=== PATIENT | female | born 2000 | race Caucasian/White ===

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

== ENCOUNTER 2022-05-03 12:46 | Emergency (ER) | payer BC, OTHER ==
--- OUTSIDE RECORDS SUMMARY | 2022-05-03 12:53 | XMS REPORT | Continuity of Care Document ---
:2002 Author Organization [facility] t Address [address] [place] [address] Care Team Providers Name Role Phone PCP, PATIENT DOES NOT HAVE A Primary Care Physician Unavaila patrick Silva, Na L Attending Clinician Unavailable Isamar Jameson Attending Clinician Unavailable EMELIA NORTON Attending Clinician Unavailable EMELIA NORTON Attending Clinician Unavailable OLMAN VIZCAINO Attending Clinician Unavailable Olman Vizcaino MD Attending Clinician Yunior Bailey CRNA Attending Clinician Priscilla Alvarado MD Attending Clinician Only, Adc Test Attending Clinician Unavailable Michi Valdovinos MD Attending Clinician MICHI VALDOVINOS Attending Clinician Unavailable Lab, Ang - Db Attending Clinician Unavailable Doctor Unassigned, Triplett Attending Clinician Unavailable Pob, Adc Lab Main Attending Clinician Unavailable Ultrasound, Adc Mfm Attending Clinician Unavailable Iona Courtney MD Attending Clinician [phone] IONA COURTNEY Attending Clinician Unavailable Alvarez Lugo Attending Clinician Ronnie OGDEN, Aamir Wells Attending Clinician Unavailable HARLEEN ERVIN Attending Clinician Unavailable David Lubin Attending Clinician Harleen Senior Attending Clinician Only, Ang Db Test Attending Clinician Unavailable DAVID PINON Attending Clinician Unavailable SARAH LANGE Attending Clinician Unavailable Lab, Adc Fam Pob I Attending Clinician Unavailable Faith Sanz Attending Clinician FAITH WAGNER Attending Clinician Unavailable WADE JACKSON Attending Clinician Unavailable OLMAN VIZCAINO Admitting Clinician Unavailable Olman Vizcaino MD Admitting Clinician Payers Payer Name Policy Type Policy Number Effective Date Expiration Date S ource [place] [id number] 2021 OUT OF STATE 00:00:00 [place] [facility] [id number] 2021 STAR 00:00:00 AETNA C1 [id number] 2020 [facility] 00:00:00 [facility] CIGNA C1 [id number] 2018 [facility] 00:00:00 [facility] Problems Condition Condition Condition Status Onset Resolution Last Treating Co mments Source Name Details Category Date Date Treatment Clinician Date Negative Negative Disease Active 2021-06 Unive rs depression depression 0-30 [place] [facility] Liveborn Liveborn Disease Active 2021-06 Unive rs , of infant, of 0-06 [place] , , 00 [place] born in born in [facility] by vaginal by vaginal delivery delivery General General Disease Active 2021-06 Univers counseling counseling 0-05 [place] female 00 Medi peggy contracept contracept Br anch ion ion Asthma Asthma Disease Active Univers without without 8-17 ity of status status 00:00: [place] asthmaticu asthmaticu 00 Me dical s s [place] Chlamydia Chlamydia Disease Active Uni vers trachomati trachomati 2-21 it y of s s 00:00: [place] infection infection 00 Medi peggy of lower of lower Branch genitourin genitourin iraida sites iraida sites Nausea/vom Nausea/vom Disease Active 2021-0 U nivers iting [place] - [place] Supervisio Supervisio Disease Active 2021- U nivers n of other n of other 08-12 it y of normal normal 00:00: [place] 00 [facility] Branch [id number] Vitamin D Problem Active Comm on deficiency [facility] Asthma Asthma, Problem Active Common unspecifie [facility] d asthma - [facility] severity, [facility] unspecif[facility] d whether Medical complicate Center d, unspecifie d whether persistent Sinus Sinus Problem Active Common problem problem [facility] Seasonal Seasonal Problem Active Commo n allergy allergies [facility] [id number] Hyperglyce Problem Active Com mon tristian [facility] Allergies, Adverse Reactions, Alerts Allergy Allergy Status Severity Reaction(s) Onset Inactive Treating Comm ents Source Name Type Date Date Clinician NO KNOWN Drug Active Univers ALLERGIE Class ity of S [facility] Social History Social Habit Start Date Stop Date Quantity Comments Source ASSERTION 2021-07-10 University 00:00:00 [facility] of [facility] - Tobacco Use [facility] Alcohol intake 2022-04-20 2022-04-20 Ex-drinker [facility] 00:00:00 00:00:00 (finding) [facility] Exposure to 2022-04-06 2022-04-16 Not sure [facility] SARS-CoV-2 00:00:00 13:28:00 [facility] [place] [facility] (event) Branch Tobacco use and 2022-01-06 2022-01-06 Smokeless tobacco Un iversity of exposure 00:00:00 00:00:[address] [facility] Smoking Status Start Date Stop Date Source Unknown if ever smoked Universit y [facility] Never smoked tobacco [facility] Medications Ordered Filled Start Stop Current Ordering Indication Dosage Frequency Signature Comments Components Source Medication Medication Date Date Medication? Clinician (SIG) Name Name 2021-06- No 1{tbl} Take 1 Univ ers VITAMIN 0-08 10-26 tablet by ity of 00:00: 00:00 mouth [place] 00 :00 daily. Medical Branch mery Tito 2021-06 Yes Topical, Un betsy (TUCKS) 50 0-07 PRN, ity of % topical 00:05[place] pad 26 on [facility] Medical 03/27/22 at Branch 1905, Until Discontinu ed, Routine, Pain (scale 1-3) ascorbic 2021-06 Yes [id number] 500mg Take 1 U nivers acid, 0-07 tablet by ity of vitamin C, 00:00: mouth in [place] 500 mg 00 the Medical tablet morning. Branch Take with iron. ferrous 2021-06 Yes [id number] 325mg Take 1 Un betsy sulfate 0-07 tablet by ity of (IRON, 00:00: mouth in [place] FERROUS 00 the Medical SULFATE,) morning. Branch 325 mg (65 mg iron) tablet 2021-06 Yes [id number] 1{tbl} Take 1 U nivers 25-iron-fol 0-07 tablet by ity of ate 6-dha 00:00: mouth [place] 30 mg 00 daily. Medical iron-1mg Branch -200 mg Cap docusate 2021-06 Yes [id number] 200mg Take 2 Univers 100 mg 0-07 102 capsules ity of capsule 00:00: by mouth [place] 00 once daily Medical as needed Branch for Constipati on. ibuprofen 2021-06 Yes [id number] 600mg Take 1 Univers 600 mg 0-07 102 tablet by ity of tablet 00:00: mouth [place] 00 every 6 Medical (six) Branch hours as needed (Pain). Take with food or milk. ascorbic 2021-06 Yes [id number] 500mg Take 1 U nivers acid, 0-07 tablet by ity of vitamin C, 00:00: mouth in [place] 500 mg 00 the Medical tablet morning. Branch Take with iron. ferrous 2021-06 Yes [id number] 325mg Take 1 Un betsy sulfate 0-07 tablet by ity of (IRON, 00:00: mouth in [place] FERROUS 00 the Medical SULFATE,) morning. Branch 325 mg (65 mg iron) tablet 2021-06 Yes [id number] 1{tbl} Take 1 U nivers 25-iron-fol 0-07 tablet by ity of ate 6-dha 00:00: mouth [place] 30 mg 00 daily. Medical iron-1mg Branch -200 mg Cap docusate 2021-06 Yes [id number] 200mg Take 2 Univers 100 mg 0-07 102 capsules ity of capsule 00:00: by mouth [place] 00 once daily Medical as needed Branch for Constipati on. ibuprofen 2021-06 Yes [id number] 600mg Take 1 Univers 600 mg 0-07 102 tablet by ity of tablet 00:00: mouth [place] 00 every 6 Medical (six) Branch hours as needed (Pain). Take with food or milk. ascorbic 2021-06 Yes [id number] 500mg Take 1 U nivers acid, 0-07 tablet by ity of vitamin C, 00:00: mouth in [place] 500 mg 00 the Medical tablet morning. Branch Take with iron. ferrous 2021-06 Yes [id number] 325mg Take 1 Un betsy sulfate 0-07 tablet by ity of (IRON, 00:00: mouth in [place] FERROUS 00 the Medical SULFATE,) morning. Branch 325 mg (65 mg iron) tablet 2021-06 Yes [id number] 1{tbl} Take 1 U nivers 25-iron-fol 0-07 tablet by ity of ate 6-dha 00:00: mouth [place] 30 mg 00 daily. Medical iron-1mg Branch -200 mg Cap docusate 2021-06 Yes [id number] 200mg Take 2 Univers 100 mg 0-07 102 capsules ity of capsule 00:00: by mouth [place] 00 once daily Medical as needed Branch for Constipati on. ibuprofen 2021-06 Yes [id number] 600mg Take 1 Univers 600 mg 0-07 102 tablet by ity of tablet 00:00: mouth [place] 00 every 6 Medical (six) Branch hours as needed (Pain). Take with food or milk. rho(D) 2021-06 Yes 300ug 300 mcg, Univer s immune 0-06 Intramuscu ity of globulin 21:22: lar, ONCE, [place] (RHOGAM) 46 For 1 Medical syringe 300 dose, Branch mcg Conditiona l, Routine HYDROcodone 2021-06 Yes 1{tbl} 1 tablet, Univers -acetaminop 0-06 Oral, ity of hen (NORCO 21:22: Q6HPRN, [place] 5) 5-325 mg 01 Starting Medi peggy tablet 1 on [place] Branch tablet 03/27/22 at 1622, Until Discontinu ed, Routine, Pain (scale 7-10) ibuprofen 2021-06 Yes 600mg 600 mg, Univ ers (IBU) 0-06 Oral, ity of tablet 600 21:: Q6HPRN, [place] mg 01 Starting Medical on [facility] 03/27/22 at 1622, Until Discontinu ed, Routine, Pain (scale 4-6) acetaminoph 2021-06 Yes 650mg 650 mg, Un betsy en 0-06 Oral, ity of (TYLENOL) 21:22: Q6HPRN, [place] tablet 650 01 Starting Medic al mg on [facility] Branch 03/27/22 at 1622, Until Discontinu ed, Routine, Pain (scale 1-3) diphenhydrA 2021-06 Yes 25mg 25 mg, Univ ers MINE 0-06 Oral, ity of (BENADRYL) 21:22: Q6HPRN, [place] tablet 25 01 Starting Medica l mg on [facility] 03/27/22 at 1622, Until Discontinu ed, Routine, Sleep, Itching ondansetron 2021-06 Yes 4mg 4 mg, Slow Univers (ZOFRAN 0-06 IV Push, ity of (PF)) 21:: Q8HPRN, [place] injection 4 01 Starting Medi peggy mg on [facility] 03/27/22 at 1622, Until Discontinu ed, Routine, Nausea and Vomiting (N/V) simethicone 2021-06 Yes 160mg 160 mg, Un betsy (GAS RELIEF 0-06 Oral, ity of (SIMETHICON 21:22: PC+HSPRN, [place] E)) 01 Starting Medical chewable on [facility] tablet 160 03/27/22 at mg 1622, Until Discontinu ed, Routine, Gas docusate 2021-06 Yes 200mg 200 mg, Unive rs (COLACE) 0-06 Oral, ity of capsule 200 21:22: QDAILYPRN, [place] mg 01 Starting Medical on [facility] 03/27/22 at 1622, Until Discontinu ed, Routine, Constipati on magnesium 2021-06 Yes 30mL 30 mL, Univer s hydroxide 0-06 Oral, ity of (MILK OF 21:22: QDAILYPRN, [place] MAGNESIA) 01 Starting Medica l 400 mg/5 mL on [place] Branch suspension 03/27/22 at 30 mL 1622, Until Discontinu ed, Routine, Constipati on benzocaine- 2021-06 Yes Topical, Un betsy menthol 0-06 PRN, ity of (DERMOPLAST 21:22: [place] 20-0.5 % 00 on [place] Medical topical 03/27/22 at Branch spray 1622, Until Discontinu ed, Routine, Perineum discomfort fentaNYL-ro 2021-06- No Epidural, Univers pivacaine 2 0-06 10-06 ONCE INTRA i ty of mcg/mL-0.1 14:06: 22:39 PROCEDURE, [place] % (PF) in 00 :29 Starting Medica l NS 200 mL on [place] Branch epidural 03/27/22 at infusion 0906, RTU Until [place] 03/27/22 at 1739, Routine, Intra-op lidocaine-e 2021-06- No Intraderma Univers pinephrine 0-06 10-06 l, ONCE ity o f (XYLOCAINE 14:00: 22:39 INTRA [place] W/EPINEPHRI 00 :29 PROCEDURE, Me dical NE) 1.5 Starting Branch %-1:200,000 on [place] injection 03/27/22 at 0900, Until [place] 03/27/22 at 1739, Routine, Intra-op oxytocin 2021-06- No 2mU/min at 2-40 Un betsy (PITOCIN) 0-06 10-06 mL/hr, IV ity of 30 units in 07:00: 21:22 Infusion, [place] NS 500 mL 00 :44 TITRATE, Medica l IV infusion Starting Bran ch on [place] 03/27/22 at 0200, Until [place] 03/27/22 at 1622, BRODERICK dinoproston 2021-06- No 10mg 10 mg, Uni vers e 0-05 10-05 Vaginal, ity of (CERVIDIL) 17:00: 17:45 ONCE, 1 [place] vaginal 00 :00 dose, On Medical insert Thu Branch mg 03/26/22 at 1200, Routine
Restricte d use approved by: ADC Provider FENTanyl PF 2021-06- No 50ug 50 mcg, Un betsy (SUBLIMAZE 0-05 10-06 Slow IV ity o f (PF)) 16:50: 21:22 Push, [place] injection 16 :44 Q1HPRN, 4 Medic al 50 mcg doses, Branch Starting on Thu03/26/22 at 1150, Until [place] 03/27/22 at 1622, Routine, Pain (scale 7-10) D5W-LR IV 2021-06- No 1000mL at 1-125 U nivers infusion 0-05 10-06 mL/hr, IV ity o f 1,000 mL 16:50: 21:22 Infusion, [place] 16 :44 TITRATE, Medical Starting Branch on Thu03/26/22 at 1150, Until [place] 03/27/22 at 1622, Routine ferrous Yes [id number] 325mg Take 1 Un betsy sulfate 7-31 tablet by ity of (IRON, 00:00: mouth in [place] FERROUS 00 the Medical SULFATE,) morning. Branch 325 mg (65 mg iron) tablet ascorbic Yes [id number] 500mg Take 1 U nivers acid, 7-31 tablet by ity of vitamin C, 00:00: mouth in [place] 500 mg 00 the Medical tablet morning. Branch Take with iron. ferrous Yes [id number] 325mg Take 1 Un betsy sulfate 7-31 tablet by ity of (IRON, 00:00: mouth in [place] FERROUS 00 the Medical SULFATE,) morning. Branch 325 mg (65 mg iron) tablet ascorbic 2021-0 Yes [id number] 500mg Take 1 U nivers acid, 7-31 tablet by ity of vitamin C, 00:00: mouth in [place] 500 mg 00 the Medical tablet morning. Branch Take with iron. ferrous Yes [id number] 325mg Take 1 Un betsy sulfate 7-31 tablet by ity of (IRON, 00:00: mouth in [place] FERROUS 00 the Medical SULFATE,) morning. Branch 325 mg (65 mg iron) tablet ascorbic 0 Yes [id number] 500mg Take 1 U nivers acid, 7-31 tablet by ity of vitamin C, 00:00: mouth in [place] 500 mg 00 the Medical tablet morning. Branch Take with iron. ferrous 0 Yes [id number] 325mg Take 1 Un betsy sulfate 7-31 tablet by ity of (IRON, 00:00: mouth in [place] FERROUS 00 the Medical SULFATE,) morning. Branch 325 mg (65 mg iron) tablet ascorbic 2021-0 Yes [id number] 500mg Take 1 U nivers acid, 7-31 tablet by ity of vitamin C, 00:00: mouth in [place] 500 mg 00 the Medical tablet morning. Branch Take with iron. ferrous 2021-0 Yes [id number] 325mg Take 1 Un betsy sulfate 7-31 tablet by ity of (IRON, 00:00: mouth in [place] FERROUS 00 the Medical SULFATE,) morning. Branch 325 mg (65 mg iron) tablet ascorbic 2021-0 Yes [id number] 500mg Take 1 U nivers acid, 7-31 tablet by ity of vitamin C, 00:00: mouth in [place] 500 mg 00 the Medical tablet morning. Branch Take with iron. ferrous 0 Yes [id number] 325mg Take 1 Un betsy sulfate 7-31 tablet by ity of (IRON, 00:00: mouth in [place] FERROUS 00 the Medical SULFATE,) morning. Branch 325 mg (65 mg iron) tablet ascorbic 0 Yes [id number] 500mg Take 1 U nivers acid, 7-31 tablet by ity of vitamin C, 00:00: mouth in [place] 500 mg 00 the Medical tablet morning. Branch Take with iron. ferrous 0 Yes [id number] 325mg Take 1 Un betsy sulfate 7-31 tablet by ity of (IRON, 00:00: mouth in [place] FERROUS 00 the Medical SULFATE,) morning. Branch 325 mg (65 mg iron) tablet ascorbic 2021-0 Yes [id number] 500mg Take 1 U nivers acid, 7-31 tablet by ity of vitamin C, 00:00: mouth in [place] 500 mg 00 the Medical tablet morning. Branch Take with iron. ferrous 2021-0 Yes [id number] 325mg Take 1 Un betsy sulfate 7-31 tablet by ity of (IRON, 00:00: mouth in [place] FERROUS 00 the Medical SULFATE,) morning. Branch 325 mg (65 mg iron) tablet ascorbic 0 Yes [id number] 500mg Take 1 U nivers acid, 7-31 tablet by ity of vitamin C, 00:00: mouth in [place] 500 mg 00 the Medical tablet morning. Branch Take with iron. ferrous 2021-0 Yes [id number] 325mg Take 1 Un betsy sulfate 7-31 tablet by ity of (IRON, 00:00: mouth in [place] FERROUS 00 the Medical SULFATE,) morning. Branch 325 mg (65 mg iron) tablet ascorbic 0 Yes [id number] 500mg Take 1 U nivers acid, 7-31 tablet by ity of vitamin C, 00:00: mouth in [place] 500 mg 00 the Medical tablet morning. Branch Take with iron. ferrous 0 Yes [id number] 325mg Take 1 Un betsy sulfate 7-31 tablet by ity of (IRON, 00:00: mouth in [place] FERROUS 00 the Medical SULFATE,) morning. Branch 325 mg (65 mg iron) tablet ascorbic 0 Yes [id number] 500mg Take 1 U nivers acid, 7-31 tablet by ity of vitamin C, 00:00: mouth in [place] 500 mg 00 the Medical tablet morning. Branch Take with iron. ferrous Yes [id number] 325mg Take 1 Un betsy sulfate 7-31 tablet by ity of (IRON, 00:00: mouth in [place] FERROUS 00 the Medical SULFATE,) morning. Branch 325 mg (65 mg iron) tablet ascorbic 0 Yes [id number] 500mg Take 1 U nivers acid, 7-31 tablet by ity of vitamin C, 00:00: mouth in [place] 500 mg 00 the Medical tablet morning. Branch Take with iron. ferrous 0 Yes [id number] 325mg Take 1 Un betsy sulfate 7-31 tablet by ity of (IRON, 00:00: mouth in [place] FERROUS 00 the Medical SULFATE,) morning. Branch 325 mg (65 mg iron) tablet ascorbic 0 Yes [id number] 500mg Take 1 U nivers acid, 7-31 tablet by ity of vitamin C, 00:00: mouth in [place] 500 mg 00 the Medical tablet morning. Branch Take with iron. ferrous 0 Yes [id number] 325mg Take 1 Un betsy sulfate 7-31 tablet by ity of (IRON, 00:00: mouth in [place] FERROUS 00 the Medical SULFATE,) morning. Branch 325 mg (65 mg iron) tablet ascorbic 0 Yes [id number] 500mg Take 1 U nivers acid, 7-31 tablet by ity of vitamin C, 00:00: mouth in [place] 500 mg 00 the Medical tablet morning. Branch Take with iron. ferrous Yes [id number] 325mg Take 1 Un betsy sulfate 7-31 tablet by ity of (IRON, 00:00: mouth in [place] FERROUS 00 the Medical SULFATE,) morning. Branch 325 mg (65 mg iron) tablet ascorbic Yes [id number] 500mg Take 1 U nivers acid, 7-31 tablet by ity of vitamin C, 00:00: mouth in [place] 500 mg 00 the Medical tablet morning. Branch Take with iron. ferrous 0 Yes [id number] 325mg Take 1 Un betsy sulfate 7-31 tablet by ity of (IRON, 00:00: mouth in [place] FERROUS 00 the Medical SULFATE,) morning. Branch 325 mg (65 mg iron) tablet ascorbic Yes [id number] 500mg Take 1 U nivers acid, 7-31 tablet by ity of vitamin C, 00:00: mouth in [place] 500 mg 00 the Medical tablet morning. Branch Take with iron. ferrous 2021- No [id number] 325mg Take 1 U nivers sulfate 01-19 10- tablet by ity of (IRON, 00:00: 00:00 mouth in [place] FERROUS 00 :00 the Medical SULFATE,) morning. Branch 325 mg (65 mg iron) tablet ascorbic 2021- No [id number] 500mg Take 1 Univers acid, 01-19 10- tablet by ity of vitamin C, 00:00: 00:00 mouth in [place] 500 mg 00 :00 the Medical tablet morning. Branch Take with iron. ferrous 2021- No [id number] 325mg Take 1 U nivers sulfate 01-19 10- tablet by ity of (IRON, 00:00: 00:00 mouth in [place] FERROUS 00 :00 the Medical SULFATE,) morning. Branch 325 mg (65 mg iron) tablet ascorbic 2021- No [id number] 500mg Take 1 Univers acid, 7 10- tablet by ity of vitamin C, 00:00: 00:00 mouth in [place] 500 mg 00 :00 the Medical tablet morning. Branch Take with iron. Nitrofurant 2021- No [id number] 100mg Take 1 Univers oin&Nit. 01-03 capsule by ity of Macrocryst 00:00: 04:59 mouth in [place] 100 mg 00 :00 the Medical capsule morning Branch and 1 capsule in the evening. Do all this for 7 days. Nitrofurant 2021- No [id number] 100mg Take 1 Univers oin&Nit. 715 01-11 capsule by ity of Macrocryst 00:00: 04:59 mouth in [place] 100 mg 00 :00 the Medical capsule morning Branch and 1 capsule in the evening. Do all this for 7 days. terconazole 2021- No [id number] 1{appli Insert 1 Univers 0.8 % 11-19 cator} Applicator ity o f vaginal 00:00: 04:59 into [place] cream 00 :00 vagina at Medical bedtime Branch for 3 days. famotidine 0 Yes [id number] 40mg Take 1 Univers 40 mg 4-07 tablet by ity of tablet 00:00: mouth 00 daily. Medical Take about Branch 30 minutes prior to eating in the AM with water. Omeprazole 2021-0 Yes [id number] 20mg Take 1 Univers 20 mg 4-07 tablet by ity of tablet 00:00: mouth with 00 evening Medical meal. Take Branch in evening with water about 30 minutes prior to dinner. famotidine 2021-0 Yes [id number] 40mg Take 1 Univers 40 mg 4-07 tablet by ity of tablet 00:00: mouth 00 daily. Medical Take about Branch 30 minutes prior to eating in the AM with water. Omeprazole 2021-0 Yes [id number] 20mg Take 1 Univers 20 mg 4-07 tablet by ity of tablet 00:00: mouth with 00 evening Medical meal. Take Branch in evening with water about 30 minutes prior to dinner. famotidine 2021-0 Yes [id number] 40mg Take 1 Univers 40 mg 4-07 tablet by ity of tablet 00:00: mouth 00 daily. Medical Take about Branch 30 minutes prior to eating in the AM with water. Omeprazole 2021-0 Yes [id number] 20mg Take 1 Univers 20 mg 4-07 tablet by ity of tablet 00:00: mouth with 00 evening Medical meal. Take Branch in evening with water about 30 minutes prior to dinner. famotidine 2021-0 Yes [id number] 40mg Take 1 Univers 40 mg 4-07 tablet by ity of tablet 00:00: mouth [place] 00 daily. Medical Take about Branch 30 minutes prior to eating in the AM with water. Omeprazole 2022-0 Yes [id number] 20mg Take 1 Univers 20 mg 4-07 tablet by ity of tablet 00:00: mouth with [place] 00 evening Medical meal. Take Branch in evening with water about 30 minutes prior to dinner. famotidine 2022-0 Yes [id number] 40mg Take 1 Univers 40 mg 4-07 tablet by ity of tablet 00:00: mouth [place] 00 daily. Medical Take about Branch 30 minutes prior to eating in the AM with water. Omeprazole 2022-0 Yes [id number] 20mg Take 1 Univers 20 mg 4-07 tablet by ity of tablet 00:00: mouth with [place] 00 evening Medical meal. Take Branch in evening with water about 30 minutes prior to dinner. famotidine 2022-0 Yes [id number] 40mg Take 1 Univers 40 mg 4-07 tablet by ity of tablet 00:00: mouth [place] 00 daily. Medical Take about Branch 30 minutes prior to eating in the AM with water. Omeprazole 2022-0 Yes [id number] 20mg Take 1 Univers 20 mg 4-07 tablet by ity of tablet 00:00: mouth with [place] 00 evening Medical meal. Take Branch in evening with water about 30 minutes prior to dinner. famotidine 2022-0 Yes [id number] 40mg Take 1 Univers 40 mg 4-07 tablet by ity of tablet 00:00: mouth [place] 00 daily. Medical Take about Branch 30 minutes prior to eating in the AM with water. Omeprazole 2022-0 Yes [id number] 20mg Take 1 Univers 20 mg 4-07 tablet by ity of tablet 00:00: mouth with [place] 00 evening Medical meal. Take Branch in evening with water about 30 minutes prior to dinner. famotidine 2022-0 Yes [id number] 40mg Take 1 Univers 40 mg 4-07 tablet by ity of tablet 00:00: mouth [place] 00 daily. Medical Take about Branch 30 minutes prior to eating in the AM with water. Omeprazole 2022-0 Yes [id number] 20mg Take 1 Univers 20 mg 4-07 tablet by ity of tablet 00:00: mouth with [place] 00 evening Medical meal. Take Branch in evening with water about 30 minutes prior to dinner. famotidine 2-0 Yes [id number] 40mg Take 1 Univers 40 mg 4-07 tablet by ity of tablet 00:00: mouth [place] 00 daily. Medical Take about Branch 30 minutes prior to eating in the AM with water. Omeprazole 2-0 Yes [id number] 20mg Take 1 Univers 20 mg 4-07 tablet by ity of tablet 00:00: mouth with [place] 00 evening Medical meal. Take Branch in evening with water about 30 minutes prior to dinner. famotidine 2-0 Yes [id number] 40mg Take 1 Univers 40 mg 4-07 tablet by ity of tablet 00:00: mouth [place] 00 daily. Medical Take about Branch 30 minutes prior to eating in the AM with water. Omeprazole 2-0 Yes [id number] 20mg Take 1 Univers 20 mg 4-07 tablet by ity of tablet 00:00: mouth with [place] 00 evening Medical meal. Take Branch in evening with water about 30 minutes prior to dinner. famotidine 2-0 Yes [id number] 40mg Take 1 Univers 40 mg 4-07 tablet by ity of tablet 00:00: mouth [place] 00 daily. Medical Take about Branch 30 minutes prior to eating in the AM with water. Omeprazole 2-0 Yes [id number] 20mg Take 1 Univers 20 mg 4-07 tablet by ity of tablet 00:00: mouth with [place] 00 evening Medical meal. Take Branch in evening with water about 30 minutes prior to dinner. famotidine 2-0 Yes [id number] 40mg Take 1 Univers 40 mg 4-07 tablet by ity of tablet 00:00: mouth [place] 00 daily. Medical Take about Branch 30 minutes prior to eating in the AM with water. Omeprazole 2-0 Yes [id number] 20mg Take 1 Univers 20 mg 4-07 tablet by ity of tablet 00:00: mouth with [place] 00 evening Medical meal. Take Branch in evening with water about 30 minutes prior to dinner. famotidine 2022-0 2022- No [id number] 40mg Take 1 Univers 40 mg 4-07 06-22 tablet by ity of tablet 00:00: 00:00 mouth [place] 00 :00 daily. Medical Take about Branch 30 minutes prior to eating in the AM with water. Omeprazole 2022-0 2021- No [id number] 20mg Take 1 Univers 20 mg 09-26- tablet by ity of tablet 00:00: 00:00 mouth [place] :00 evening Medical meal. Take Branch in evening with water about 30 minutes prior to dinner. doxylamine- 2021-0 Yes [id number] 1{tbl} Take 1 [facility] pyridoxine, 3-24 tablet by ity of vit B6, 00:00: mouth [place] ([place]) 00 every 6 Medica l 10-10 mg (six) Branch per tablet hours as needed for Nausea and Vomiting (N/V). ondansetron 2021-0 Yes [id number] 4mg Take 1 [facility] (ZOFRAN) 4 3-24 tablet by ity of mg tablet 00:00: mouth [place] 00 every 8 Medical (eight) Branch hours as needed for Nausea and Vomiting (N/V). doxylamine- 2021-0 Yes [id number] 1{tbl} Take 1 [facility] pyridoxine, 3-24 tablet by ity of vit B6, 00:00: mouth [place] ([place]) 00 every 6 Medica l 10-10 mg (six) Branch per tablet hours as needed for Nausea and Vomiting (N/V). ondansetron 2021-0 Yes [id number] 4mg Take 1 [facility] (ZOFRAN) 4 3-24 tablet by ity of mg tablet 00:00: mouth [place] 00 every 8 Medical (eight) Branch hours as needed for Nausea and Vomiting (N/V). doxylamine- 2021-0 Yes [id number] 1{tbl} Take 1 [facility] pyridoxine, 3-24 tablet by ity of vit B6, 00:00: mouth [place] ([place]) 00 every 6 Medica l 10-10 mg (six) Branch per tablet hours as needed for Nausea and Vomiting (N/V). ondansetron 2021-0 Yes [id number] 4mg Take 1 [facility] (ZOFRAN) 4 3-24 tablet by ity of mg tablet 00:00: mouth [place] 00 every 8 Medical (eight) Branch hours as needed for Nausea and Vomiting (N/V). doxylamine- 2021-0 Yes [id number] 1{tbl} Take 1 [facility] pyridoxine, 3-24 tablet by ity of vit B6, 00:00: mouth [place] ([place]) 00 every 6 Medica l 10-10 mg (six) Branch per tablet hours as needed for Nausea and Vomiting (N/V). ondansetron 2022-0 Yes [id number] 4mg Take 1 [facility] (ZOFRAN) 4 3-24 tablet by ity of mg tablet 00:00: mouth [place] 00 every 8 Medical (eight) Branch hours as needed for Nausea and Vomiting (N/V). doxylamine- 2022-0 Yes [id number] 1{tbl} Take 1 [facility] pyridoxine, 3-24 tablet by ity of vit B6, 00:00: mouth [place] ([place]) 00 every 6 Medica l 10-10 mg (six) Branch per tablet hours as needed for Nausea and Vomiting (N/V). ondansetron 2022-0 Yes [id number] 4mg Take 1 [facility] (ZOFRAN) 4 3-24 tablet by ity of mg tablet 00:00: mouth [place] 00 every 8 Medical (eight) Branch hours as needed for Nausea and Vomiting (N/V). doxylamine- 2022-0 Yes [id number] 1{tbl} Take 1 [facility] pyridoxine, 3-24 tablet by ity of vit B6, 00:00: mouth [place] ([place]) 00 every 6 Medica l 10-10 mg (six) Branch per tablet hours as needed for Nausea and Vomiting (N/V). ondansetron 2022-0 Yes [id number] 4mg Take 1 [facility] (ZOFRAN) 4 3-24 tablet by ity of mg tablet 00:00: mouth [place] 00 every 8 Medical (eight) Branch hours as needed for Nausea and Vomiting (N/V). doxylamine- 2022-0 Yes [id number] 1{tbl} Take 1 [facility] pyridoxine, 3-24 tablet by ity of vit B6, 00:00: mouth [place] ([place]) 00 every 6 Medica l 10-10 mg (six) Branch per tablet hours as needed for Nausea and Vomiting (N/V). ondansetron 2022-0 Yes [id number] 4mg Take 1 [facility] (ZOFRAN) 4 3-24 tablet by ity of mg tablet 00:00: mouth [place] 00 every 8 Medical (eight) Branch hours as needed for Nausea and Vomiting (N/V). doxylamine- 2022-0 Yes [id number] 1{tbl} Take 1 [facility] pyridoxine, 3-24 tablet by ity of vit B6, 00:00: mouth [place] ([place]) 00 every 6 Medica l 10-10 mg (six) Branch per tablet hours as needed for Nausea and Vomiting (N/V). ondansetron 2-0 Yes [id number] 4mg Take 1 [facility] (ZOFRAN) 4 3-24 tablet by ity of mg tablet 00:00: mouth [place] 00 every 8 Medical (eight) Branch hours as needed for Nausea and Vomiting (N/V). doxylamine- 2022-0 Yes [id number] 1{tbl} Take 1 [facility] pyridoxine, 3-24 tablet by ity of vit B6, 00:00: mouth [place] ([place]) 00 every 6 Medica l 10-10 mg (six) Branch per tablet hours as needed for Nausea and Vomiting (N/V). ondansetron 2-0 Yes [id number] 4mg Take 1 [facility] (ZOFRAN) 4 3-24 tablet by ity of mg tablet 00:00: mouth [place] 00 every 8 Medical (eight) Branch hours as needed for Nausea and Vomiting (N/V). doxylamine- 2-0 Yes [id number] 1{tbl} Take 1 [facility] pyridoxine, 3-24 tablet by ity of vit B6, 00:00: mouth [place] ([place]) 00 every 6 Medica l 10-10 mg (six) Branch per tablet hours as needed for Nausea and Vomiting (N/V). ondansetron 2-0 Yes [id number] 4mg Take 1 [facility] (ZOFRAN) 4 3-24 tablet by ity of mg tablet 00:00: mouth [place] 00 every 8 Medical (eight) Branch hours as needed for Nausea and Vomiting (N/V). doxylamine- 2022-0 Yes [id number] 1{tbl} Take 1 [facility] pyridoxine, 3-24 tablet by ity of vit B6, 00:00: mouth [place] ([place]) 00 every 6 Medica l 10-10 mg (six) Branch per tablet hours as needed for Nausea and Vomiting (N/V). ondansetron 2-0 Yes [id number] 4mg Take 1 [facility] (ZOFRAN) 4 3-24 tablet by ity of mg tablet 00:00: mouth [place] 00 every 8 Medical (eight) Branch hours as needed for Nausea and Vomiting (N/V). doxylamine- 2-0 Yes [id number] 1{tbl} Take 1 [facility] pyridoxine, 3-24 tablet by ity of vit B6, 00:00: mouth [place] ([place]) 00 every 6 Medica l 10-10 mg (six) Branch per tablet hours as needed for Nausea and Vomiting (N/V). ondansetron 2022-0 Yes [id number] 4mg Take 1 [facility] (ZOFRAN) 4 3-24 tablet by ity of mg tablet 00:00: mouth [place] 00 every 8 Medical (eight) Branch hours as needed for Nausea and Vomiting (N/V). doxylamine- 2-0 Yes [id number] 1{tbl} Take 1 [facility] pyridoxine, 3-24 tablet by ity of vit B6, 00:00: mouth [place] ([place]) 00 every 6 Medica l 10-10 mg (six) Branch per tablet hours as needed for Nausea and Vomiting (N/V). ondansetron 2-0 Yes [id number] 4mg Take 1 [facility] (ZOFRAN) 4 3-24 tablet by ity of mg tablet 00:00: mouth [place] 00 every 8 Medical (eight) Branch hours as needed for Nausea and Vomiting (N/V). doxylamine- 2-0 Yes [id number] 1{tbl} Take 1 [facility] pyridoxine, 3-24 tablet by ity of vit B6, 00:00: mouth [place] ([place]) 00 every 6 Medica l 10-10 mg (six) Branch per tablet hours as needed for Nausea and Vomiting (N/V). ondansetron 2022-0 Yes [id number] 4mg Take 1 [facility] (ZOFRAN) 4 3-24 tablet by ity of mg tablet 00:00: mouth [place] 00 every 8 Medical (eight) Branch hours as needed for Nausea and Vomiting (N/V). doxylamine- 2022-0 Yes [id number] 1{tbl} Take 1 [facility] pyridoxine, 3-24 tablet by ity of vit B6, 00:00: mouth [place] ([place]) 00 every 6 Medica l 10-10 mg (six) Branch per tablet hours as needed for Nausea and Vomiting (N/V). ondansetron Yes [id number] 4mg Take 1 [facility] (ZOFRAN) 4 3-24 tablet by ity of mg tablet 00:00: mouth [place] 00 every 8 Medical (eight) Branch hours as needed for Nausea and Vomiting (N/V). doxylamine- Yes [id number] 1{tbl} Take 1 [facility] pyridoxine, 3-24 tablet by ity of vit B6, 00:00: mouth [place] ([place]) 00 every 6 Medica l 10-10 mg (six) Branch per tablet hours as needed for Nausea and Vomiting (N/V). doxylamine- Yes [id number] 1{tbl} Take 1 [facility] pyridoxine, 3-24 tablet by ity of vit B6, 00:00: mouth [place] ([place]) 00 every 6 Medica l 10-10 mg (six) Branch per tablet hours as needed for Nausea and Vomiting (N/V). doxylamine- 0 Yes [id number] 1{tbl} Take 1 [facility] pyridoxine, 3-24 tablet by ity of vit B6, 00:00: mouth [place] ([place]) 00 every 6 Medica l 10-10 mg (six) Branch per tablet hours as needed for Nausea and Vomiting (N/V). doxylamine- 0 Yes [id number] 1{tbl} Take 1 [facility] pyridoxine, 3-24 tablet by ity of vit B6, 00:00: mouth [place] ([place]) 00 every 6 Medica l 10-10 mg (six) Branch per tablet hours as needed for Nausea and Vomiting (N/V). doxylamine- 2021-0 Yes [id number] 1{tbl} Take 1 [facility] pyridoxine, 3-24 tablet by ity of vit B6, 00:00: mouth [place] ([place]) 00 every 6 Medica l 10-10 mg (six) Branch per tablet hours as needed for Nausea and Vomiting (N/V). doxylamine- 0 Yes [id number] 1{tbl} Take 1 [facility] pyridoxine, 3-24 tablet by ity of vit B6, 00:00: mouth [place] ([place]) 00 every 6 Medica l 10-10 mg (six) Branch per tablet hours as needed for Nausea and Vomiting (N/V). doxylamine- Yes [id number] 1{tbl} Take 1 [facility] pyridoxine, 3-24 tablet by ity of vit B6, 00:00: mouth [place] ([place]) 00 every 6 Medica l 10-10 mg (six) Branch per tablet hours as needed for Nausea and Vomiting (N/V). doxylamine- Yes [id number] 1{tbl} Take 1 [facility] pyridoxine, 3-24 tablet by ity of vit B6, 00:00: mouth [place] ([place]) 00 every 6 Medica l 10-10 mg (six) Branch per tablet hours as needed for Nausea and Vomiting (N/V). doxylamine- Yes [id number] 1{tbl} Take 1 [facility] pyridoxine, 3-24 tablet by ity of vit B6, 00:00: mouth [place] ([place]) 00 every 6 Medica l 10-10 mg (six) Branch per tablet hours as needed for Nausea and Vomiting (N/V). doxylamine- 0 Yes [id number] 1{tbl} Take 1 [facility] pyridoxine, 3-24 tablet by ity of vit B6, 00:00: mouth [place] ([place]) 00 every 6 Medica l 10-10 mg (six) Branch per tablet hours as needed for Nausea and Vomiting (N/V). doxylamine- 0 Yes [id number] 1{tbl} Take 1 [facility] pyridoxine, 3-24 tablet by ity of vit B6, 00:00: mouth [place] ([place]) 00 every 6 Medica l 10-10 mg (six) Branch per tablet hours as needed for Nausea and Vomiting (N/V). doxylamine- 2021- No [id number] 1{tbl} Take 1 [facility] pyridoxine, 3-24 - tablet by it y of vit B6, 00:00: 00:00 mouth [place] ([place]) 00 :00 every 6 Medica l 10-10 mg (six) Branch per tablet hours as needed for Nausea and Vomiting (N/V). doxylamine- 2021- No [id number] 1{tbl} Take 1 [facility] pyridoxine, 3- tablet by it y of vit B6, 00:00: 00:00 mouth [place] ([place]) 00 :00 every 6 Medica l 10-10 mg (six) Branch per tablet hours as needed for Nausea and Vomiting (N/V). ondansetron 2- No [id number] 4mg Take 1 [facility] (ZOFRAN) 4 09-12 tablet by ity of mg tablet 00:00: 00:00 mouth [place] 00 :00 every 8 Medical (eight) Branch hours as needed for Nausea and Vomiting (N/V). ondansetron 2021-0 Yes DISSOLVE 1 [facility] 4 mg 3-04 TABLET ity of disintegrat 00:00: [place] tablet 00 TONGUE Medical EVERY 12 Branch HOURS NEEDED. ondansetron 2021-0 Yes DISSOLVE 1 [facility] 4 mg 3-04 TABLET ity of disintegrat 00:00: [place] tablet 00 T[place]UE Medical EVERY 12 Branch HOURS NEEDED. ondansetron 2021-0 Yes DISSOLVE 1 [facility] 4 mg 3-04 TABLET ity of disintegrat 00:00: [place] [place] tablet 00 T[place]UE Medical EVERY 12 Branch HOURS NEEDED. ondansetron 2021-0 Yes DISSOLVE 1 [facility] 4 mg 3-04 TABLET ity of disintegrat 00:00: [place] [place] tablet 00 TONGUE Medical EVERY 12 Branch HOURS NEEDED. ondansetron 2021-0 Yes DISSOLVE 1 [facility] 4 [...] Medical EVERY 12 Branch HOURS NEEDED. ondansetron 2022-0 Yes DISSOLVE 1 [facility] 4 mg 3-04 TABLET ity of disintegrat 00:00: [place] tablet 00 TONGUE Medical EVERY 12 Branch HOURS NEEDED. ondansetron 2022-0 Yes DISSOLVE 1 [facility] 4 mg 3-04 TABLET ity of disintegrat 00:00: [place] tablet 00 TONGUE Medical EVERY 12 Branch HOURS NEEDED. ondansetron 2022-0 Yes DISSOLVE 1 [facility] 4 mg 3-04 TABLET ity of disintegrat 00:00: [place] tablet 00 TONGUE Medical EVERY 12 Branch HOURS NEEDED. ondansetron 2022-0 Yes DISSOLVE 1 [facility] 4 mg 3-04 TABLET ity of disintegrat 00:00: [place] tablet 00 TONGUE Medical EVERY 12 Branch HOURS NEEDED. ondansetron 2022-0 Yes DISSOLVE 1 [facility] 4 mg 3-04 TABLET ity of disintegrat 00:00: [place] tablet 00 TONGUE Medical EVERY 12 Branch HOURS NEEDED. ondansetron 2022-0 Yes DISSOLVE 1 [facility] 4 mg 3-04 TABLET ity of disintegrat 00:00: [place] tablet 00 TONGUE Medical EVERY 12 Branch HOURS NEEDED. ondansetron 2022-0 Yes DISSOLVE 1 [facility] 4 mg 3-04 TABLET ity of disintegrat 00:00: [place] tablet 00 TONGUE Medical EVERY 12 Branch HOURS NEEDED. ondansetron 2022-0 Yes DISSOLVE 1 [facility] 4 mg 3-04 TABLET ity of disintegrat 00:00: [place] tablet 00 TONGUE Medical EVERY 12 Branch HOURS NEEDED. ondansetron 2022-0 Yes DISSOLVE 1 [facility] 4 mg 3-04 TABLET ity of disintegrat 00:00: [place] tablet 00 TONGUE Medical EVERY 12 Branch HOURS NEEDED. ondansetron 2022-0 Yes DISSOLVE 1 [facility] 4 mg 3-04 TABLET ity of disintegrat 00:00: [place] tablet 00 TONGUE Medical EVERY 12 Branch HOURS NEEDED. ondansetron 2022-0 Yes DISSOLVE 1 [facility] 4 mg 3-04 TABLET ity of disintegrat 00:00: [place] tablet 00 TONGUE Medical EVERY 12 Branch HOURS NEEDED. ondansetron 2022-0 Yes DISSOLVE 1 [facility] 4 mg 3-04 TABLET ity of disintegrat 00:00: [place] tablet 00 TONGUE Medical EVERY 12 Branch HOURS NEEDED. ondansetron 2022-0 Yes DISSOLVE 1 [facility] 4 mg 3-04 TABLET ity of disintegrat 00:00: [place] tablet 00 TONGUE Medical EVERY 12 Branch HOURS NEEDED. ondansetron 2022-0 Yes DISSOLVE 1 [facility] 4 mg 3-04 [...] Medical EVERY 12 Branch HOURS NEEDED. ondansetron 2021-0 2021- No DISSOLVE 1 [facility] 4 mg 3-04 09-01 TABLET ity of disintegrat 00:00: 00:00 UNDER THE [place] ing tablet 00 :00 TONGUE Medical EVERY 12 Branch HOURS NEEDED. ondansetron 2-0 2021- No DISSOLVE 1 [facility] 4 mg 3-04 09-01 TABLET ity of disintegrat 00:00: 00:00 UNDER THE [place] ing tablet 00 :00 TONGUE Medical EVERY 12 Branch HOURS NEEDED. pyridoxine, 2021-0 Yes [id number] 25mg Take 1 [facility] VITAMIN 2-21 tablet by ity of B-6, 25 mg 00:00: mouth [place] tablet 00 (three) Medical times Branch daily. doxylamine 2021-0 Yes [id number] 25mg Take 1 [facility] 25 mg 2-21 tablet by ity of tablet 00:00: mouth at [place] 00 bedtime. Medical Branch pyridoxine, Yes [id number] 25mg Take 1 [facility] VITAMIN 2-21 tablet by ity of B-6, 25 mg 00:00: mouth [place] tablet 00 (three) Medical times Branch daily. doxylamine Yes [id number] 25mg Take 1 [facility] n[facility] 25 mg 2-21 tablet by ity of tablet 00:00: mouth at [place] 00 bedtime. Medical Branch pyridoxine, Yes [id number] 25mg Take 1 [facility] VITAMIN 2-21 tablet by ity of B-6, 25 mg 00:00: mouth 3 [place] tablet 00 (three) Medical times Branch daily. doxylamine Yes [id number] 25mg Take 1 [facility] n[facility] 25 mg 2-21 tablet by ity of tablet 00:00: mouth at [place] 00 bedtime. Medical Branch pyridoxine, Yes [id number] 25mg Take 1 [facility] VITAMIN 2-21 tablet by ity of B-6, 25 mg 00:00: mouth 3 [place] tablet 00 (three) Medical times Branch daily. doxylamine Yes [id number] 25mg Take 1 [facility] n[facility] 25 mg 2-21 tablet by ity of tablet 00:00: mouth at [place] 00 bedtime. Medical Branch pyridoxine, Yes [id number] 25mg Take 1 [facility] VITAMIN 2-21 tablet by ity of B-6, 25 mg 00:00: mouth [place] tablet 00 (three) Medical times Branch daily. doxylamine 0 Yes [id number] 25mg Take 1 [facility] n[facility] 25 mg 2-21 tablet by ity of tablet 00:00: mouth at [place] 00 bedtime. Medical Branch pyridoxine, 2021- No [id number] 25mg Take 1 [facility] VITAMIN 2-21 04-21 tablet by ity of B-6, 25 mg 00:00: 00:00 mouth 3 [place] tablet 00 :00 (three) Medical times Branch daily. doxylamine 2021- No [id number] 25mg Take 1 [facility] 25 mg 2-21 04-21 tablet by ity of tablet 00:00: 00:00 mouth at [place] 00 :00 bedtime. Medical Branch azithromyci 0 2021- No [id number] 1000mg Take 2 [facility] n 500 mg 2-10 -11 tablets by ity of tablet 00:00: 05:59 mouth [place] 00 :00 now for 1 Medical dose. Branch 0 Yes [id number] 1{tbl} Take 1 U n[facility] 25-iron-fol 2-09 tablet by ity of ate 6-dha 00:00: mouth [place] 30 mg 00 daily. Medical iron-1mg Branch -200 mg Cap 0 Yes [id number] 1{tbl} Take 1 [facility] n[facility] 25-iron-fol 2-09 tablet by ity of ate 6-dha 00:00: mouth [place] 30 mg 00 daily. Medical iron-1mg Branch -200 mg Cap 0 Yes [id number] 1{tbl} Take 1 U nivers 25-iron-fol 2-09 tablet by ity of ate 6-dha 00:00: mouth [place] 30 mg 00 daily. Medical iron-1mg Branch -200 mg Cap Yes [id number] 1{tbl} Take 1 U nivers 25-iron-fol 2-09 tablet by ity of ate 6-dha 00:00: mouth [place] 30 mg 00 daily. Medical iron-1mg Branch -200 mg Cap 0 Yes [id number] 1{tbl} Take 1 U nivers 25-iron-fol 2-09 tablet by ity of ate 6-dha 00:00: mouth [place] 30 mg 00 daily. Medical iron-1mg Branch -200 mg Cap 0 Yes [id number] 1{tbl} Take 1 U nivers 25-iron-fol 2-09 tablet by ity of ate 6-dha 00:00: mouth [place] 30 mg 00 daily. Medical iron-1mg Branch -200 mg Cap 0 Yes [id number] 1{tbl} Take 1 U nivers 25-iron-fol 2-09 tablet by ity of ate 6-dha 00:00: mouth [place] 30 mg 00 daily. Medical iron-1mg Branch -200 mg Cap 0 Yes [id number] 1{tbl} Take 1 U nivers 25-iron-fol 2-09 tablet by ity of ate 6-dha 00:00: mouth [place] 30 mg 00 daily. Medical iron-1mg Branch -200 mg Cap 2021-0 Yes [id number] 1{tbl} Take 1 U nivers 25-iron-fol 2-09 tablet by ity of ate 6-dha 00:00: mouth [place] 30 mg 00 daily. Medical iron-1mg Branch -200 mg Cap 2021-0 Yes [id number] 1{tbl} Take 1 U nivers 25-iron-fol 2-09 tablet by ity of ate 6-dha 00:00: mouth [place] 30 mg 00 daily. Medical iron-1mg Branch -200 mg Cap 2021-0 Yes [id number] 1{tbl} Take 1 U nivers 25-iron-fol 2-09 tablet by ity of ate 6-dha 00:00: mouth [place] 30 mg 00 daily. Medical iron-1mg Branch -200 mg Cap 2021-0 Yes [id number] 1{tbl} Take 1 U nivers 25-iron-fol 2-09 tablet by ity of ate 6-dha 00:00: mouth [place] 30 mg 00 daily. Medical iron-1mg Branch -200 mg Cap 2021-0 Yes [id number] 1{tbl} Take 1 U nivers 25-iron-fol 2-09 tablet by ity of ate 6-dha 00:00: mouth [place] 30 mg 00 daily. Medical iron-1mg Branch -200 mg Cap 2021-0 Yes [id number] 1{tbl} Take 1 U nivers 25-iron-fol 2-09 tablet by ity of ate 6-dha 00:00: mouth [place] 30 mg 00 daily. Medical iron-1mg Branch -200 mg Cap 2021-0 Yes [id number] 1{tbl} Take 1 U nivers 25-iron-fol 2-09 tablet by ity of ate 6-dha 00:00: mouth [place] 30 mg 00 daily. Medical iron-1mg Branch -200 mg Cap 2021-0 Yes [id number] 1{tbl} Take 1 U nivers 25-iron-fol 2-09 tablet by ity of ate 6-dha 00:00: mouth [place] 30 mg 00 daily. Medical iron-1mg Branch -200 mg Cap 2021-0 Yes [id number] 1{tbl} Take 1 U nivers 25-iron-fol 2-09 tablet by ity of ate 6-dha 00:00: mouth [place] 30 mg 00 daily. Medical iron-1mg Branch -200 mg Cap 2021-0 Yes [id number] 1{tbl} Take 1 U nivers 25-iron-fol 2-09 tablet by ity of ate 6-dha 00:00: mouth [place] 30 mg 00 daily. Medical iron-1mg Branch -200 mg Cap 2021-0 Yes [id number] 1{tbl} Take 1 U nivers 25-iron-fol 2-09 tablet by ity of ate 6-dha 00:00: mouth [place] 30 mg 00 daily. Medical iron-1mg Branch -200 mg Cap 0 Yes [id number] 1{tbl} Take 1 U nivers 25-iron-fol 2-09 tablet by ity of ate 6-dha 00:00: mouth [place] 30 mg 00 daily. Medical iron-1mg Branch -200 mg Cap 0 Yes [id number] 1{tbl} Take 1 U nivers 25-iron-fol 2-09 tablet by ity of ate 6-dha 00:00: mouth [place] 30 mg 00 daily. Medical iron-1mg Branch -200 mg Cap 0 Yes [id number] 1{tbl} Take 1 U nivers 25-iron-fol 2-09 tablet by ity of ate 6-dha 00:00: mouth [place] 30 mg 00 daily. Medical iron-1mg Branch -200 mg Cap 2021-0 Yes [id number] 1{tbl} Take 1 U nivers 25-iron-fol 2-09 tablet by ity of ate 6-dha 00:00: mouth [place] 30 mg 00 daily. Medical iron-1mg Branch -200 mg Cap 2021-0 Yes [id number] 1{tbl} Take 1 U nivers 25-iron-fol 2-09 tablet by ity of ate 6-dha 00:00: mouth [place] 30 mg 00 daily. Medical iron-1mg Branch -200 mg Cap 2021-0 Yes [id number] 1{tbl} Take 1 U nivers 25-iron-fol 2-09 tablet by ity of ate 6-dha 00:00: mouth [place] 30 mg 00 daily. Medical iron-1mg Branch -200 mg Cap 2021-0 Yes [id number] 1{tbl} Take 1 U nivers 25-iron-fol 2-09 tablet by ity of ate 6-dha 00:00: mouth [place] 30 mg 00 daily. Medical iron-1mg Branch -200 mg Cap 2021-0 Yes [id number] 1{tbl} Take 1 U nivers 25-iron-fol 2-09 tablet by ity of ate 6-dha 00:00: mouth [place] 30 mg 00 daily. Medical iron-1mg Branch -200 mg Cap 2021-0 Yes [id number] 1{tbl} Take 1 U nivers 25-iron-fol 2-09 tablet by ity of ate 6-dha 00:00: mouth [place] 30 mg 00 daily. Medical iron-1mg Branch -200 mg Cap 2021-0 Yes [id number] 1{tbl} Take 1 U nivers 25-iron-fol 2-09 tablet by ity of ate 6-dha 00:00: mouth [place] 30 mg 00 daily. Medical iron-1mg Branch -200 mg Cap 2021-0 Yes [id number] 1{tbl} Take 1 U nivers 25-iron-fol 2-09 tablet by ity of ate 6-dha 00:00: mouth [place] 30 mg 00 daily. Medical iron-1mg Branch -200 mg Cap 2021-0 Yes [id number] 1{tbl} Take 1 U nivers 25-iron-fol 2-09 tablet by ity of ate 6-dha 00:00: mouth [place] 30 mg 00 daily. Medical iron-1mg Branch -200 mg Cap 2021-0 Yes [id number] 1{tbl} Take 1 U nivers 25-iron-fol 2-09 tablet by ity of ate 6-dha 00:00: mouth [place] 30 mg 00 daily. Medical iron-1mg Branch -200 mg Cap 2021-0 Yes [id number] 1{tbl} Take 1 U nivers 25-iron-fol 2-09 tablet by ity of ate 6-dha 00:00: mouth [place] 30 mg 00 daily. Medical iron-1mg Branch -200 mg Cap 2021-0 Yes [id number] 1{tbl} Take 1 U nivers 25-iron-fol 2-09 tablet by ity of ate 6-dha 00:00: mouth [place] 30 mg 00 daily. Medical iron-1mg Branch -200 mg Cap Yes [id number] 1{tbl} Take 1 U nivers 25-iron-fol 2-09 tablet by ity of ate 6-dha 00:00: mouth [place] 30 mg 00 daily. Medical iron-1mg Branch -200 mg Cap Yes [id number] 1{tbl} Take 1 U nivers 25-iron-fol 2-09 tablet by ity of ate 6-dha 00:00: mouth [place] 30 mg 00 daily. Medical iron-1mg Branch -200 mg Cap Yes [id number] 1{tbl} Take 1 U nivers 25-iron-fol 2-09 tablet by ity of ate 6-dha 00:00: mouth [place] 30 mg 00 daily. Medical iron-1mg Branch -200 mg Cap Yes [id number] 1{tbl} Take 1 U nivers 25-iron-fol 2-09 tablet by ity of ate 6-dha 00:00: mouth [place] 30 mg 00 daily. Medical iron-1mg Branch -200 mg Cap 202- No [id number] 1{tbl} Take 1 [facility] 25-iron-fol 2-09 - tablet by it y of ate 6-dha 00:00: 00:00 mouth [place] 30 mg 00 :00 daily. Medical iron-1mg Branch -200 mg Cap 0 202- No [id number] 1{tbl} Take 1 [facility] 25-iron-fol 2-09 10- tablet by it y of ate 6-dha 00:00: 00:00 mouth [place] 30 mg 00 :00 daily. Medical iron-1mg Branch -200 mg Cap Omeprazole Omeprazole 2020- No 1{capsu QD Omeprazole 40 MG 40 MG 2-11 le} 40 MG 00:00: 00 Omeprazole Omeprazole 2020-0 No 1{capsu QD Omeprazole Common 40 MG 40 MG 2-11 le} 40 MG [facility]: - [facility] Omeprazole Omeprazole No 1{capsu QD Omeprazole 40 MG 40 MG 2-11 le} 40 MG 00:00: 00 Omeprazole Omeprazole 2020-0 No 1{capsu QD Omeprazole 40 MG 40 MG 2-11 le} 40 MG 00:00: 00 Famotidine Famotidine 2019-06 No 1{table BID Famotidine Common 40 MG 40 MG 2-11 t_as_ne 40 MG Spirit 00:00: eded} - [facility] Augmentin Augmentin 2018-0 2019- No Isamar 1 tablet Common 11-26 [facility] 00:00: 00:00 - [facility] :00 [facility] Xopenex HFA Xopenex HFA No 1{puff_ Xopenex 45 MCG/ACT 45 MCG/ACT as_need HFA 45 ed} MCG/ACT Famotidine Famotidine No 1{table BID Famotidine 40 MG 40 MG t_as_ne 40 MG eded} Flovent HFA Flovent HFA No 1{puff} BID Flovent 110 MCG/ACT 110 MCG/ACT HFA 110 MCG/ACT Xopenex HFA Xopenex HFA Yes Isamar 1 puff as Common Millender needed [facility] Vitamin D3 Vitamin D3 Yes Isamar 1 tablet Common Millender [facility] Vitamin D3 Vitamin D3 No 1{table Vitamin D3 5000 UNIT 5000 UNIT t} 5000 UNIT Azelastine Azelastine No 1{puff_ QID Azelastine HCl 137 HCl 137 in_each HCl 137 MCG/SPRAY MCG/SPRAY _nostri MCG/SPRAY l} Flovent HFA Flovent HFA No 1{puff} BID Flovent 110 MCG/ACT 110 MCG/ACT HFA 110 MCG/ACT Xopenex HFA Xopenex HFA No 1{puff_ Xopenex 45 MCG/ACT 45 MCG/ACT as_need HFA 45 ed} MCG/ACT Xopenex HFA Xopenex HFA No 1{puff_ Xopenex Common 45 MCG/ACT 45 MCG/ACT as_need HFA 45 Spirit ed} MCG/ACT - [facility] Flovent HFA Flovent HFA No 1{puff} BID Flovent Common 110 MCG/ACT 110 MCG/ACT HFA 110 Spirit MCG/ACT - [facility] Azelastine Azelastine No 1{puff_ QID Azelastine Common HCl 137 HCl 137 in_each HCl 137 Spi rit MCG/SPRAY MCG/SPRAY _nostri MCG/SPRAY - [facility]} [facility] Vitamin D3 Vitamin D3 No 1{table Vitamin D3 Common 5000 UNIT 5000 UNIT t} 5000 UNIT [facility] Xopenex HFA Xopenex HFA No 1{puff_ Xopenex 45 MCG/ACT 45 MCG/ACT as_need HFA 45 ed} MCG/ACT Famotidine Famotidine No 1{table BID Famotidine 40 MG 40 MG t_as_ne 40 MG eded} Azelastine Azelastine No 1{puff_ QID Azelastine HCl 137 HCl 137 in_each HCl 137 MCG/SPRAY MCG/SPRAY _nostri MCG/SPRAY l} Flovent HFA Flovent HFA No 1{puff} BID Flovent 110 MCG/ACT 110 MCG/ACT HFA 110 MCG/ACT Vitamin D3 Vitamin D3 No 1{table Vitamin D3 5000 UNIT 5000 UNIT t} 5000 UNIT Xopenex HFA Xopenex HFA No 1{puff_ Xopenex Common 45 MCG/ACT 45 MCG/ACT as_need HFA 45 Spirit ed} MCG/ACT - [facility] Famotidine Famotidine No 1{table BID Famotidine Common 40 MG 40 MG t_as_ne 40 MG Spirit eded} - [facility] Azelastine Azelastine No 1{puff_ QID Azelastine Common HCl 137 HCl 137 in_each HCl 137 Spi rit MCG/SPRAY MCG/SPRAY _nostri MCG/SPRAY - [facility]} [facility] Flovent HFA Flovent HFA No 1{puff} BID Flovent Common 110 MCG/ACT 110 MCG/ACT HFA 110 Spirit MCG/ACT - [facility] Vitamin D3 Vitamin D3 No 1{table Vitamin D3 Common 5000 UNIT 5000 UNIT t} 5000 UNIT [facility] Vitamin D3 Vitamin D3 No 1{table Vitamin D3 5000 UNIT 5000 UNIT t} 5000 UNIT Azelastine Azelastine No 1{puff_ QID Azelastine HCl 137 HCl 137 in_each HCl 137 MCG/SPRAY MCG/SPRAY _nostri MCG/SPRAY l} Xopenex HFA Xopenex HFA No 1{puff_ Xopenex 45 MCG/ACT 45 MCG/ACT as_need HFA 45 ed} MCG/ACT Famotidine Famotidine No 1{table BID Famotidine 40 MG 40 MG t_as_ne 40 MG eded} Flovent HFA Flovent HFA No 1{puff} BID Flovent 110 MCG/ACT 110 MCG/ACT HFA 110 MCG/ACT Vitamin D3 Vitamin D3 No 1{table Vitamin D3 5000 UNIT 5000 UNIT t} 5000 UNIT Azelastine Azelastine No 1{puff_ QID Azelastine HCl 137 HCl 137 in_each HCl 137 MCG/SPRAY MCG/SPRAY _nostri MCG/SPRAY l} Immunizations Ordered Filled Immunization Date Status Comments [facility] e Immunization Name Name Influenza Virus 2022-03-07 Completed [facility] Vaccine [facility]00 [facility] Influenza Virus 2022-03-07 Completed [facility] Vaccine 00:00:00 [facility] Influenza Virus 2022-03-07 Completed [facility] of Vaccine 00[facility]00:00 [facility] Influenza Virus 2022-03-07 Completed Universit y of Vaccine 00:00:00 [facility] TDAP 2022-02-04 Completed University of 00:00:00 [facility] TDAP 2022-02-04 Completed [facility] of 00:00:00 [facility] TDAP 2022-02-04 Completed [facility] 00:00:00 [facility] TDAP 2022-02-04 Completed [facility] 00:00:00 [facility] TDAP 2022-02-04 Completed [facility] 00:00:00 [facility] TDAP 2022-02-04 Completed [facility] of 00:00:00 [facility] TDAP 2022-02-04 Completed [facility] of 00:00:00 [facility] TDAP 2022-02-04 Completed University of 00[facility]00:00 [facility] TDAP 2022-02-04 Completed University of 00:00:00 [facility] TDAP 2022-02-04 Completed University of 00:00:00 [facility] TDAP 2022-02-04 Completed [facility] of 00:00:00 [facility] TDAP 2022-02-04 Completed University of 00:00:00 [facility] TDAP 2022-02-04 Completed University of 00:00:00 [facility] TDAP 2022-02-04 Completed University of 00:00:00 [facility] TDAP 2022-02-04 Completed University 00:00:00 [facility] Afluria single dose Afluria single dose 2020-03-08 [facility]pleted [facility] Afluria single dose Afluria single dose 2020-03-08 Completed [facility]00 [facility] Afluria single dose Afluria single dose 2020-03-08 Completed [facility]:15[facility]00 [facility] Afluria single dose Afluria single dose 2020-03-08 Completed [facility]:15[facility]00 [facility] Afluria single dose Afluria single dose 2020-03-08 Completed [facility]00 [facility] Afluria single dose Afluria single dose 2020-03-08 Completed [facility]:15[facility]00 [facility] Meningoccal MCV4 Meningoccal MCV4 2018-02-19 Completed [facility] 16:38:00 [facility] Meningoccal MCV4 Meningoccal MCV4 2018-02-19 Completed [facility] 16:38:00 [facility] Meningoccal MCV4 Meningoccal MCV4 2018-02-19 Completed [facility] 16:38:00 [facility] Meningoccal MCV4 Meningoccal MCV4 2018-02-19 Completed [facility] 16:38:00 [facility] Meningoccal MCV4 Meningoccal MCV4 2018-02-19 Completed [facility] 16:38:00 [facility] Meningoccal MCV4 Meningoccal MCV4 2018-02-19 Completed [facility] 00:[facility]:00 [facility] Vital Signs Vital Name Observation Time Observation Value Comments Source Systolic blood 2022-04-16 18:43:00 100 mm[Hg] Univer sity of pressure [facility] Diastolic blood 2022-04-16 18:43:00 67 mm[Hg] Unive rsity of pressure [facility] Heart rate 2022-04-16 18:43:00 92 /min [facility] Body temperature 2022-04-16 18:43:00 36.72 Viktoriya [facility] Respiratory rate 2022-04-16 18:43:00 16 /min [facility] Body weight 2022-04-16 18:43:00 64.139 kg [facility] Oxygen saturation in 2022-04-16 18:43:00 97 /min University of Arterial blood by [facility] Pulse oximetry Branch Systolic blood 2022-03-29 01:00:00 121 mm[Hg] Univer sity of pressure [facility] Diastolic blood 2022-03-29 01:00:00 70 mm[Hg] Unive rsity of pressure [facility] Heart rate 2022-03-29 01:00:00 83 /min [facility] Body temperature 2022-03-29 01:00:00 36.89 Viktoriya [facility] Respiratory rate 2022-03-29 01:00:00 16 /min [facility] Oxygen saturation in 2022-03-29 00:58:00 99 /min University of Arterial blood by [facility] Pulse oximetry Branch Body weight 2022-03-25 12:00:00 71 kg [facility] BMI 2022-03-25 12:00:00 24.52 kg/m2 [facility] Systolic blood 2022-03-18 20:47:00 104 mm[Hg] Univer sity of pressure [facility] Diastolic blood 2022-03-18 20:47:00 70 mm[Hg] Unive rsity of pressure [facility] Heart rate 2022-03-18 20:47:00 82 /min [facility] Body temperature 2022-03-18 20:47:00 36.72 Viktoriya [facility] Respiratory rate 2022-03-18 20:47:00 18 /min [facility] Body height 2022-03-18 20:47:00 170.2 cm [facility] Body weight 2022-03-18 20:47:00 70.761 kg [facility] BMI 2022-03-18 20:47:00 24.43 kg/m2 [facility] Systolic blood 2022-03-11 21:08:00 108 mm[Hg] Univer sity of pressure [facility] Diastolic blood 2022-03-11 21:08:00 78 mm[Hg] Unive rsity of pressure [facility] Heart rate 2022-03-11 21:08:00 103 /min [facility] Body temperature 2022-03-11 21:08:00 36.83 Viktoriya [facility] Respiratory rate 2022-03-11 21:08:00 18 /min [facility] Body height 2022-03-11 21:08:00 170.2 cm [facility] Body weight 2022-03-11 21:08:00 68.947 kg [facility] BMI 2022-03-11 21:08:00 23.81 kg/m2 [facility] Systolic blood 2022-02-20 18:11:00 102 mm[Hg] Univer sity of pressure [facility] Diastolic blood 2022-02-20 18:11:00 68 mm[Hg] Unive rsity of pressure [facility] Heart rate 2022-02-20 18:11:00 92 /min [facility] Body temperature 2022-02-20 18:11:00 36.67 Viktoriya [facility] Respiratory rate 2022-02-20 18:11:00 16 /min [facility] Body height 2022-02-20 18:11:00 170.2 cm [facility] Body weight 2022-02-20 18:11:00 68.266 kg [facility] BMI 2022-02-20 18:11:00 23.57 kg/m2 [facility] Oxygen saturation in 2022-02-20 18:11:00 98 /min University Arterial blood by [facility] Pulse oximetry Branch Systolic blood 2022-02-04 21:10:00 105 mm[Hg] Univer sity of pressure [facility] Diastolic blood 2022-02-04 21:10:00 73 mm[Hg] Unive rsity of pressure [facility] Heart rate 2022-02-04 21:10:00 73 /min [facility] Respiratory rate 2022-02-04 21:10:00 18 /min [facility] Body height 2022-02-04 21:10:00 170.2 cm [facility] Body weight 2022-02-04 21:10:00 66.497 kg [facility] BMI 2022-02-04 21:10:00 22.96 kg/m2 [facility] Oxygen saturation in 2022-02-04 21:10:00 98 /min University of Arterial blood by [facility] Pulse oximetry Branch Systolic blood 2022-01-20 21:05:00 105 mm[Hg] Univer sity of pressure [facility] Diastolic blood 2022-01-20 21:05:00 69 mm[Hg] Unive rsity of pressure [facility] Heart rate 2022-01-20 21:05:00 96 /min [facility] Respiratory rate 2022-01-20 21:05:00 18 /min [facility] Body height 2022-01-20 21:05:00 170.2 cm [facility] Body weight 2022-01-20 21:05:00 64.91 kg [facility] BMI 2022-01-20 21:05:00 22.41 kg/m2 [facility] Oxygen saturation in 2022-01-20 21:05:00 98 /min University of Arterial blood by [facility] Pulse oximetry Branch Systolic blood 2022-01-06 20:55:00 102 mm[Hg] Univer sity of pressure [facility] Diastolic blood 2022-01-06 20:55:00 70 mm[Hg] Unive rsity of pressure [facility] Heart rate 2022-01-06 20:55:00 105 /min [facility] Body temperature 2022-01-06 20:55:00 36.83 Viktoriya [facility] Respiratory rate 2022-01-06 20:55:00 18 /min [facility] Body height 2022-01-06 20:55:00 170.2 cm [facility] Body weight 2022-01-06 20:55:00 65.046 kg [facility] BMI 2022-01-06 20:55:00 22.46 kg/m2 [facility] Systolic blood 2022-01-03 20:00:00 112 mm[Hg] Univer sity of pressure [facility] Diastolic blood 2022-01-03 20:00:00 78 mm[Hg] Unive rsity of pressure [facility] Heart rate 2022-01-03 20:00:00 98 /min Universi ty of [facility] Body temperature 2022-01-03 20:00:00 37.17 Viktoriya Univ [facility]ity of [facility] Respiratory rate 2022-01-03 20:00:00 18 /min Univ ersity of [facility] Body height 2022-01-03 20:00:00 170.2 cm [facility] [place] Body weight 2022-01-03 20:00:00 65.273 kg [facility] [place] BMI 2022-01-03 20:00:00 22.54 kg/m2 Universi ty of [facility] Oxygen saturation in 2022-01-03 20:00:00 97 /min University of Arterial blood by [facility] Pulse oximetry Branch Systolic blood 2021-12-09 21:03:00 93 mm[Hg] Univer sity of pressure [facility] Diastolic blood 2021-12-09 21:03:00 60 mm[Hg] Unive rsity of pressure [facility] Heart rate 2021-12-09 21:03:00 56 /min Universi ty of [facility] Body temperature 2021-12-09 21:03:00 36.72 Viktoriya Univ ersity of [facility] Respiratory rate 2021-12-09 21:03:00 18 /min Univ ersity of [facility] Body height 2021-12-09 21:03:00 170.2 cm [facility] [place] Body weight 2021-12-09 21:03:00 61.236 kg [facility] BMI 2021-12-09 21:03:00 21.14 kg/m2 [facility] [place] Body mass index 2021-12-09 21:03:00 43.82 % Unive rsity of (BMI) [Percentile] [facility] ical Per age and sex Branch Systolic blood 2021-11-19 15:38:00 108 mm[Hg] Univer sity of pressure [facility] Diastolic blood 2021-11-19 15:38:00 77 mm[Hg] Unive rsity of pressure [facility] Heart rate 2021-11-19 15:38:00 108 /min [facility] Respiratory rate 2021-11-19 15:38:00 18 /min [facility] Body height 2021-11-19 15:38:00 170.2 cm [facility] Body weight 2021-11-19 15:38:00 61.264 kg [facility] BMI 2021-11-19 15:38:00 21.15 kg/m2 [facility] Body mass index 2021-11-19 15:38:00 44.07 % Unive rsity of (BMI) [Percentile] [place] [facility] ical Per age and sex Branch Oxygen saturation in 2021-11-19 15:38:00 98 /min University of Arterial blood by [employer] Pulse oximetry Branch Systolic blood 2021-11-17 20:32:00 95 mm[Hg] Univer sity of pressure [facility] Diastolic blood 2021-11-17 20:32:00 56 mm[Hg] Unive rsity of pressure [facility] Heart rate 2021-11-17 20:32:00 114 /min [facility] Body temperature 2021-11-17 20:32:00 36.94 Viktoriya [facility] Respiratory rate 2021-11-17 20:32:00 16 /min [facility] Body height 2021-11-17 20:32:00 170.2 cm [facility] Body weight 2021-11-17 20:32:00 60.782 kg [facility] BMI 2021-11-17 20:32:00 20.99 kg/m2 [facility] Body mass index 2021-11-17 20:32:00 41.97 % Unive rsity of (BMI) [Percentile] [place] [facility] Per age and sex Branch Oxygen saturation in 2021-11-17 20:32:00 98 /min University of Arterial blood by [employer] Pulse oximetry Branch Systolic blood 2021-11-08 20:54:00 109 mm[Hg] [facility]ity of [facility] [place] Diastolic blood 2021-11-08 20:54:00 72 mm[Hg] Unive rsity of pressure [facility] Heart rate 2021-11-08 20:54:00 88 /min Universi ty of [facility] Body temperature 2021-11-08 20:54:00 36.72 Viktoriya [facility] [address]ity of [facility] Respiratory rate 2021-11-08 20:54:00 19 /min Univ ersity of [facility] Body height 2021-11-08 20:54:00 170.2 cm [facility] [place] Body weight 2021-11-08 20:54:00 60.81 kg [facility] [place] BMI 2021-11-08 20:54:00 21.00 kg/m2 Universi ty of [facility] Body mass index 2021-11-08 20:54:00 42.16 % Unive rsity of (BMI) [Percentile] [place] [facility] Per age and sex Branch Oxygen saturation in 2021-11-08 20:54:00 98 /min [facility] Arterial blood by [facility] Pulse oximetry Branch Systolic blood 2021-10-10 21:15:00 103 mm[Hg] Univer sity of pressure [facility] Diastolic blood 2021-10-10 21:15:00 71 mm[Hg] Unive rsity of pressure [facility] Heart rate 2021-10-10 21:15:00 93 /min Universi ty of [facility] Body temperature 2021-10-10 21:15:00 36.78 Viktoriya [facility] ersity of [facility] Respiratory rate 2021-10-10 21:15:00 18 /min Univ ersity of [facility] Body height 2021-10-10 21:15:00 170.2 cm [facility] [place] Body weight 2021-10-10 21:15:00 61.009 kg [facility] [place] BMI 2021-10-10 21:15:00 21.07 kg/m2 Universi ty of [facility] Body mass index 2021-10-10 21:15:00 43.28 % Unive rsity of (BMI) [Percentile] [place] [facility] Per age and sex Branch Systolic blood 2021-09-12 20:55:00 110 mm[Hg] Univer sity of pressure [facility] Diastolic blood 2021-09-12 20:55:00 72 mm[Hg] Unive rsity of pressure [facility] Heart rate 2021-09-12 20:55:00 74 /min [facility] Body temperature 2021-09-12 20:55:00 37.06 [facility] height 2021-09-12 20:55:00 170.2 cm [facility] Body weight 2021-09-12 20:55:00 60.691 kg [facility] BMI 2021-09-12 20:55:00 20.96 kg/m2 [facility] Body mass index 2021-09-12 20:55:00 42.01 % Unive rsity of (BMI) [Percentile] [facility] ica Per age and sex Branch height 2020-06-01 15:20:00 66.00 [in_i] [facility] weight 2020-06-01 15:20:00 159.4 [lb_av] [facility] temperature 2020-06-01 15:20:00 98.0 [degF] [facility] bmi 2020-06-01 15:20:00 25.73 kg/m2 [facility] oximetry 2020-06-01 15:20:00 98 % [facility] respiratory rate 2020-06-01 15:20:00 15 /min Comm on [facility] blood pressure 2020-06-01 15:20:00 121 mm[Hg] Common [facility] - systolic [facility] blood pressure 2020-06-01 15:20:00 71 mm[Hg] Common [facility] - diastolic [facility] height 2020-03-08 14:00:00 66.00 [in_i] [facility] weight 2020-03-08 14:00:00 156.8 [lb_av] [facility] temperature 2020-03-08 14:00:00 98.0 [degF] [facility] bmi 2020-03-08 14:00:00 25.31 kg/m2 Common [facility] oximetry 2020-03-08 14:00:00 97 % Common [facility] respiratory rate 2020-03-08 14:00:00 15 /min [facility] blood pressure 2020-03-08 14:00:00 112 mm[Hg] [facility] - systolic [facility] blood pressure 2020-03-08 14:00:00 66 mm[Hg] Common [facility] - diastolic [facility] Procedures Procedure Date / Time Performing Clinician Source Performed CBC WITH DIFF 2022-03-28 09:30:00 Carrillo [facility] CENTRAL NEURAXIAL BLOCK 2022-03-27 14:14:41 Priscilla Alvarado [facility] CBC WITH DIFF 2022-03-26 17:41:00 Carrillo [facility] HEPATITIS B SURFACE 2022-03-26 17:41:00 Carrillo [facility] ANTIGEN [facility] ADC OR JUDE ONLY - 2022-03-26 17:41:00 Carrillo Ol[facility] RPR [facility] HIV 1/2 AG-AB WITH 2022-03-26 17:41:00 [facility] Olman [facility] REFLEX [facility] HB ABO GROUPING 2022-03-26 17:26:00 [facility] RHO (D) IMMUNE GLOBULIN 2022-03-26 17:26:00 [facility] NOTICE OF PRIVACY 2022-03-24 19:01:14 Doctor Unassigned, No [facility] PRACTICES Name Medical Branch CONSENT/REFUSAL FOR 2022-03-24 18:57:42 Doctor Unassigned, No [facility] DIAGNOSIS AND TREATMENT [facility] [place] ASSIGNMENT OF BENEFITS 2022-03-24 18:57:30 Doctor Unassigned, No [facility] Branch POCT URINALYSIS W/O 2022-03-18 20:52:00 Carrillo Olman [facility] SPECIFIC GRAVITY [facility] DSU PRE-OP 2022-03-11 05:01:00 Doctor [facility] [place] POCT URINALYSIS W/O 2022-03-11 00:00:00 Devon Vizcainon [facility] SPECIFIC NEELY Medical Branch DME/SUPPLY JUSTIFICATION 2022-03-04 05:01:00 Doctor Unassigned, No General acute hospital POCT URINALYSIS W/O 2022-02-20 00:00:00 Devon Vizcainon [facility] SPECIFIC [facility] DME/SUPPLY JUSTIFICATION 2022-02-13 05:01:00 Doctor Unassigned, No General acute hospital TDAP VACCINE, >11 YRS, 2022-02-04 21:40:30 Olman Vizcaino [facility] POCT URINALYSIS W/O 2022-02-04 21:13:00 Olman Vizcaino [facility] 2 HR GLUCOSE TOLERANCE 2022-01-31 15:31:00 Olman Vizcaino [facility] 1 HR GLUCOSE TOLERANCE 2022-01-31 14:32:00 Olman Vizcaino [facility] GLUCOSE FASTING 2022-01-31 13:30:00 Carrillo [facility] POCT URINALYSIS W/O 2022-01-20 21:06:00 Emelia Norton [facility] POCT URINALYSIS W/O 2022-01-06 21:00:00 Olman Vizcaino [facility] CONSENT/REFUSAL FOR 2022-01-03 19:55:05 Doctor Unassigned, No [facility] DIAGNOSIS AND TREATMENT [facility] POCT URINALYSIS W/O 2021-12-09 00:00:00 Olman Vizcaino [facility] SPECIFIC [facility] POCT URINALYSIS 2021-11-17 20:56:00 David Pinon [facility] o f [facility] POCT URINALYSIS W/O 2021-11-08 20:55:00 Emelia Norton [facility] EXTERNAL PROVIDER 2021-11-01 05:01:00 Doctor Unassigned, No [facility] EXTERNAL PROVIDER 2021-10-23 05:01:00 Doctor [facility]assigned, No [facility] Branch SCANNED LAB RESULTS 2021-09-23 05:01:00 Doctor Unassigned, No [facility] Name [facility] Branch POCT URINALYSIS W/O 2021-09-12 00:00:00 [facility]RAVITY Medical Branch ASSIGNMENT OF BENEFITS 2021-06-14 00:14:23 Doctor Unassigned, No [facility] Name Medical Branch CONSENT/REFUSAL FOR 2021-06-14 00:14:14 Doctor Unassigned, No Un i[facility] DIAGNOSIS AND TREATMENT Name Medical Branch Encounters Start End Encounter Admission Attending Care Care Encounter Source Date/Time Date/Time Type Type Clinicians Facility Department ID 2021-07-17 Outpatient Silva, Na STLMLC STLMLC [id number] 2 Common 13:20:48 [id number] [facility] 2021-07-17 Outpatient Silva, Na STLMLC STLMLC [id number] 2 Common 13:20:28 [id number] [facility] 2021-07-17 Outpatient Silva, Na STLMLC STLMLC [id number] 2 Common 12:37:23 [id number] [facility] 2021-07-17 Outpatient Silva, Na STLMLC STLMLC [id number] 2 Common 12:30:38 [id number] [facility] 2021-07-17 Outpatient Silva, Na STLMLC STLMLC [id number] 2 Common 12:11:42 [id number] [facility] 2021-07-17 Outpatient Silva, Na STLMLC STLMLC [id number] 2 Common 12:03:18 [id number] [facility] 2021-07-17 Outpatient Silva, Na STLMLC STLMLC [id number] 2 Common 12:02:49 [id number] [facility] 2021-07-17 Outpatient Silva, Na STLMLC STLMLC [id number] 2 Common 12:01:25 [id number] [facility] 2021-07-17 Outpatient Silva, Na STLMLC STLMLC [id number] 2 Common 11:47:00 [id number] [facility] 2021-07-17 Outpatient Karina Silva [facility] [id number] 2 Common 11:46:00 [id number] [facility] 2021-07-17 Outpatient Trino [facility] [id number] Common 11:43:27 Isamar [id number] [facility] 2022-05-07 2022-05-07 [facility] [id number] Univers 14:00:00 14:00:00 ANTONIOEMELIA BLAIR [facility] 2022-04-16 2022-04-16 Routine [facility] [id number] Univers 14:00:00 14:00:00 [facility] [id number] i ty of Visit [facility] [id number] [facility] [id number] [facility] 134 Branch 2022-04-16 2022-04-16 Outpatient R EMELIA NORTON [facility] B [id number] Univers 14:00:00 13:57:58 [facility] 2022-03-26 2022-03-28 Inpatient P OLMAN VIZCAINO [facility] DAVID [id number] Univers 11:35:00 20:50:00 ity [facility] 2022-03-26 2022-03-28 Hospital Olman Vizcaino [facility] [id number] Univers 11:35:00 20:50:00 Encounter HUSAM [id number] [facility] HOSPITAL 4.2.7.2.686 [facility] [id number] [place] [address] [place] 2022-03-27 2022-03-27 [facility] 1.2.840.114 [id number] Univers 20:00:01 20:00:01 Event Yunior WEINER 350.1.13.10 i ty of [place] 4.2.7.2.686 [facility] [id number] [place] [address] 2022-03-27 2022-03-27 Anesthesia Jenny [facility] 1.2.840.114 [id number] Univers 08:51:00 17:33:00 Event Priscilla Wilburn HALLIEJEREMI 350.1.13.10 i ty of [place] 4.2.7.2.686 [facility] [id number] [facility] [address] [place] 2022-03-24 2022-03-24 Laboratory Only, Adc Test [facility] 1.2.840. 114 [id number] Univers 14:15:00 14:30:00 Only Michi Valdovinos 350.1.13.10 ity of [facility] 4.2.7.2.686 [facility] [id number] [facility] [address] [place] 2022-03-24 2022-03-24 Outpatient R ARUNA [facility] [id number] Univers 14:15:00 14:15:00 MICHI [facility] 2022-03-18 2022-03-18 Outpatient R CARRILLO OLAMN [facility] [id number] Univers 16:00:00 16:10:51 ity [facility] 2022-03-18 2022-03-18 Routine Carrillo [facility] 1.2.840.114 [id number] Univers 16:00:00 16:10:51 ANETTE 350.1.13.10 i ty of Visit WOMEN'S 4.2.7.2.686 [facility] [id number] [facility] [address] 2022-03-14 2022-03-14 [employer] Supervisor Lab, Mustapha Philip [facility] 1.2.840.1 14 [id number] Univers 17:00:00 17:15:00 Visit Carrillo [employer] 350.1.13.10 ity [facility] 4.2.7.2.686 Juvenal as KRISS?BLEA [id number] Md yani OSMAR [address] [place] [address] MEDICAL OFFICE BUILDING 2022-03-14 2022-03-14 Outpatient R CARRILLO OLMAN [facility] [id number] Univers 17:00:00 16:16:51 ity [facility] 2022-03-11 2022-03-11 Outpatient R CARRILLO OLMAN [facility] 371 [id number] Univers 16:00:00 16:31:20 ity [facility] 2022-03-11 2022-03-11 Routine Olman Vizcaino 1.2.840.114 [id number] Univers 16:00:00 16:31:20 ANETTE 350.1.13.10 i ty of [place] [id number] [address] 2022-03-11 2022-03-11 Orders Doctor PRISCILLA 1.2.840.114 [id number] Univers 00:00:00 00:00:00 Only Unassigned, ROSENDO 350.1.13.10 ity of [place] [facility] 4.2.7.2.686 Juvenal as [id number] [address] 2022-03-06 2022-03-06 Outpatient R OLMAN VIZCAINO [facility] 437 [id number] Univers 13:45:00 13:45:00 ity [facility] 2022-03-04 2022-03-04 Orders Doctor PRISCILLA 1.2.840.114 [id number] Univers 00:00:00 00:00:00 Only Unassigned, ROSENDO 350.1.13.10 ity of [place] [facility] 4.2.7.2.686 Juvenal as [id number] [address] 2022-03-03 2022-03-03 Telephone Olman Vizcaino 1.2.840.11 4 [id number] Univers 00:00:00 00:00:00 ANETTE 350.1.13.10 it y [place] [id number] [address] 2022-02-20 2022-02-20 Outpatient R OLMAN VIZCAINO [facility] [id number] Univers 13:00:00 13:40:02 ity [facility] 2022-02-20 2022-02-20 Routine Olman Vizcaino 1.2.840.114 [id number] Univers 13:00:00 13:40:02 ANETTE 350.1.13.10 i ty of [place].2.[place] [id number] [address] 2022-02-19 2022-02-19 Outpatient R EMELIA NORTON [facility] B [id number] Univers 13:15:00 13:15:00 EMELIA NORTON cortney [facility] 2022-02-18 2022-02-18 Outpatient R EMELIA NORTON [facility] B [id number] Univers 16:30:00 16:30:00 EMELIA NORTON cortney [facility] 2022-02-13 2022-02-13 Telephone Olman Vizcaino [facility] 1.2.840.11 4 [id number] Univers 00:00:00 00:00:00 ANETTE 350.1.13.10 it y of [place] [id number] [address] 2022-02-13 2022-02-13 Orders Doctor PRISCILLA 1.2.840.114 [id number] Univers 00:00:00 00:00:00 Only Unassigned, ROSENDO 350.1.13.10 ity of [facility] 4.2.7.2.686 Juvenal as [id number] [address] 2022-02-04 2022-02-04 Outpatient R OLMAN VIZCAINO [facility] 134 [id number] Univers 16:15:00 16:40:[address] [facility] 2022-02-04 2022-02-04 Routine Olman Vizcaino [facility] 1.2.840.114 [id number] Univers 16:15:00 16:40:42 ANETTE 350.1.13.10 i ty of Visit [place].2.[place].2.[place] [id number] [address] 2022-01-31 2022-01-31 [employer] Supervisor Danyell Stoll Lab Main [facility] 1.2.8 40.114 [id number] Univers 09:30:00 09:45:00 Visit Devon Vizcainosole WEINER 350.1.13.10 ity of [place] 4.2.7.2.686 [place] [id number] Md dical [address] 2022-01-31 2022-01-31 Outpatient R OLMAN VIZCAINO [facility] [id number] Univers 09:30:00 09:30:[address] [facility] 2022-01-20 2022-01-20 Outpatient R EMELIA NORTON [facility] B [id number] Univers 16:00:00 16:16:08 EMELIA NORTON ity of [facility] 2022-01-20 2022-01-20 Routine Errol [facility] 1.2.840.114 [id number] Univers 16:00:00 16:16:08 Emelia CHEEMA 350.1.13.10 i ty of Visit [place].2.7.2.[place] [id number] [address] 2022-01-19 2022-01-19 Case Olman Vizcaino [facility] 1.2.840.114 [id number] Univers 00:00:00 00:00:00 Management ANETTE 350.1.13.10 it[place] [facility] [id number] [address] 2022-01-14 2022-01-14 [employer] Supervisor Ultrasound, Adc [facility] 1.2 .840.114 [id number] Univers 11:30:00 12:00:00 Visit Iona Courtney 350.1 .13.10 ity of [facility] 4.2.7.2.[place] [id number] Md dical [address] 2022-01-14 2022-01-14 Outpatient P BARRETT [facility] [id number] Univers 11:30:00 11:30:00 FRANKO it y of IONA Lechuga [facility] 2022-01-10 2022-01-10 [employer] Supervisor Lab, Ang - Db [facility] 1.2.840.1 14 [id number] Univers 09:45:00 10:00:00 Visit Olman Vizcaino 350.1.13.10 ity of [place] 4.2.7.2.686 Juvenal as KRISS?BLEA [id number] Md dical [address] MEDICAL OFFICE BUILDING 2022-01-10 2022-01-10 Outpatient R OLMAN VIZCAINO [facility] [id number] Univers 09:45:00 09:45:[address] [facility] 2022-01-06 2022-01-06 Outpatient R OLMAN VIZCAINO [facility] 436 [id number] Univers 16:00:00 16:14:[address] [facility] 2022-01-06 2022-01-06 Routine Olman Vizcaino [facility] 1.2.840.114 [id number] Univers 16:00:00 16:14:24 ANETTE 350.1.13.10 i ty of Visit WOMEN'S 4.2.7.2.686 [facility] [id number] [address] 2022-01-03 2022-01-03 Outpatient X OLMAN VIZCAINO [facility] DAVID 301 [id number] Univers 15:05:00 16:22:[address] [facility] 2022-01-03 2022-01-03 Emergency WallaceAlvarez fu [facility] 1.2. 840.114 [id number] Univers 15:05:00 16:22:00 Olman Vizcaino 350.1.13.10 ity of [place] 4.2.7.2.686 [facility] [id number] [facility] [address] 2021-12-17 2021-12-17 Outpatient R EMELIA NORTON [facility] B [id number] Univers 15:30:00 15:30:00 EMELIA NORTON ity [facility] 2021-12-12 2021-12-12 Telephone Olman Vizcaino [facility] 1.2.840.11 4 [id number] Univers 00:00:00 00:00:00 ANETTE 350.1.13.10 it y of WOMEN'S 4.2.7.2.686 [facility] [id number] [address] 2021-12-11 2021-12-11 Case Olman Vizcaino [facility] 1.2.840.114 [id number] Univers 00:00:00 00:00:00 Management ANETTE 350.1.13.10 ity of PEDIATRIC 4.2.7.2.686 [facility] [id number] [address] 2021-12-10 2021-12-10 [employer] Supervisor Ultrasound, Adc [facility] 1.2 .840.114 [id number] Univers 13:00:00 14:00:00 Visit Iona Courtney 350.1 .13.10 ity [facility] 4.2.7.2.[place] [id number] Md dical [address] 2021-12-10 2021-12-10 Outpatient P BARRETT [facility] [id number] Univers 13:00:00 13:00:00 JOSSSANTAShayna it y of SIONA [facility] 2021-12-09 2021-12-09 Outpatient R CARRILLO OLMAN [facility] [id number] Univers 16:00:00 17:06:[address] [facility] 2021-12-09 2021-12-09 Routine Carrillo [facility] 1.2.840.114 [id number] Univers 16:00:00 17:06:24 ANETTE 350.1.13.10 i ty of Visit [place].2.[place] [id number] [address] 2021-11-19 2021-11-19 Outpatient R CARRILLO OLMAN [facility] [id number] Univers 10:15:00 10:54:[address] [facility] 2021-11-19 2021-11-19 Routine Olman Vizcaino [facility] 1.2.840.114 [id number] Univers 10:15:00 10:54:59 ANETTE 350.1.13.10 i ty of [place].2.[place] [id number] [address] 2021-11-18 2021-11-18 Nurse PRISCILLA Trujillo 1.2.840.114 [id number] Univers 00:00:00 00:00:00 Triage Aamir ROBBINS 350.1.13.10 ity [facility] 4.2.7.2.686 Juvenal as [id number] [address] 2021-11-17 2021-11-17 Outpatient R ARCADIO [facility] [id number] Univers 15:40:00 16:00:00 HARLEEN ity o f [facility] 2021-11-17 2021-11-17 Urgent David Pinon [facility] 1.2.840.114 [id number] Univers 15:40:00 16:00:00 Care Harleen Ervin [facility] 350.1.13.10 ity of [place] 4.2.7.2.686 Juvenal as KRISS?BLEA [id number] Md dical [address] MEDICAL OFFICE BUILDING 2021-11-08 2021-11-08 Outpatient R ADALBERTOBARBARA EMELIA [facility] B [id number] Univers 16:00:00 16:07:36 ERROL EMELIA pagan [facility] 2021-11-08 2021-11-08 Routine [facility] 1.2.840.114 [id number] Univers 16:00:00 16:07:36 Emelia CHEEMA 350.1.13.10 i ty of Visit WOMEN'S 4.2.7.2.686 [place] [facility] [id number] [address] 2021-11-01 2021-11-01 Orders Doctor PRISCILLA 1.2.840.114 [id number] Univers 00:00:00 00:00:00 Only Unassigned, ROSENDO 350.1.13.10 ity of [place] [facility] 4.2.7.2.686 Juvenal as [id number] [address] 2021-10-31 2021-10-31 Case Carrillo, Olman [facility] 1.2.840.114 [id number] Univers 00:00:00 00:00:00 Management ANETTE 350.1.13.10 [place] [id number] [address] 2021-10-23 2021-10-23 Orders Doctor PRISCILLA 1.2.840.114 [id number] Univers 00:00:00 00:00:00 Only Unassigned, ROSENDO 350.1.13.10 ity of [place] [facility] 4.2.7.2.686 Juvenal as [id number] [address] 2021-10-10 2021-10-10 Outpatient R OLMAN VIZCAINO [facility] [id number] [id number] Univers 16:00:00 16:26:52 ity [facility] 2021-10-10 2021-10-10 Routine Olman Vizcaino 1.2.840.114 [id number] Univers 16:00:00 16:26:52 ANETTE 350.1.13.10 i ty of [place]2.[place] [id number] [address] 2021-10-10 2021-10-10 Outpatient R OLMAN VIZCAINO [facility] 744 [id number] Univers 16:00:00 16:00:00 ity [facility] 2021-10-01 2021-10-01 Telephone Olamn Vizcaino 1.2.840.11 4 [id number] Univers 00:00:00 00:00:00 ANETTE 350.1.13.10 it y [place] [id number] [address] 2021-09-30 2021-09-30 Telephone Olman Vizcaino 1.2.840.11 4 [id number] Univers 00:00:00 00:00:00 ANETTE 350.1.13.10 it y [place] [id number] [address] 2021-09-26 2021-09-26 Telephone Olman Vizcaino 1.2.840.11 4 [id number] Univers 00:00:00 00:00:00 ANETTE 350.1.13.10 it y [place]2.[place] [id number] [address] 2021-09-23 2021-09-23 Outpatient R OLMAN VIZCAINO [facility] 159 [id number] Univers 10:00:00 10:00:00 ity [facility] 2021-09-23 2021-09-23 Orders Doctor WELLS 1.2.840.114 [id number] Univers 00:00:00 00:00:00 Only Unassigned, ROSENDO 350.1.13.10 ity of [place] [facility] 4.2.7.2.686 Juvenal as [id number] [address] 2021-09-18 2021-09-18 Telephone Olman Vizcaino 1.2.840.11 4 [id number] Univers 00:00:00 00:00:00 ANETTE 350.1.13.10 it y of [place].7.2.[place] [id number] [address] 2021-09-12 2021-09-12 Outpatient R OLMAN VIZCAINO [facility] [id number] Univers 16:00:00 16:38:19 ity [facility] 2021-09-12 2021-09-12 Routine Olman Vizcaino [place] [facility] 1.2.840.114 [id number] Univers 16:00:00 16:38:19 ANETTE 350.1.13.10 i ty of Visit WOMEN'S 4.2.7.2.686 [facility] s HEALTH [id number] [address] 2021-09-12 2021-09-12 Outpatient R OLMAN VIZCAINO [facility] 519 [id number] Univers 16:00:00 16:38:[address] [facility] 2021-09-12 2021-09-12 Outpatient R OLMAN VIZCAINO [facility] [id number] Univers 16:00:00 16:00:00 ity [facility] 2021-08-16 2021-08-16 Outpatient R OLMAN VIZCAINO [facility] [id number] Univers 14:00:00 14:00:[address] [facility] 2021-08-16 2021-08-16 Outpatient R [facility] [id number] Univers 14:00:00 14:00:[address] [facility] 2021-08-12 2021-08-12 Outpatient R OLMAN VIZCAINO [facility] [id number] Univers 14:30:00 15:21:[address] [facility] 2021-08-12 2021-08-12 Routine FishOlman HUGO 1.2.840.114 [id number] Univers 14:30:00 15:21:10 ANETTE 350.1.13.10 i ty of Visit [place] 4[place]2.7.2.[place] [id number] [address] 2021-08-12 2021-08-12 Outpatient R OLMAN VIZCAINO [facility] [id number] Univers 14:30:00 15:21:[address] [facility] 2021-08-12 2021-08-12 Orders Doctor PRISCILLA 1.2.840.114 [id number] Univers 00:00:00 00:00:00 Only Unassigned, ROSENDO 350.1.13.10 ity of [place] [facility] 4.2.7.2.686 Juvenal as [id number] [place] [address] [address] 2021-08-01 2021-08-01 Case Olman Vizcaino [facility] 1.2.840.114 [id number] Univers 00:00:00 00:00:00 Management ANETTE 350.1.13.10 [place] [id number] [address] 2021-07-30 2021-07-30 Outpatient R OLMAN VIZCAINO [facility] [id number] Univers 14:30:00 15:46:[address] [facility] 2021-07-30 2021-07-30 Initial Olman Vizcaino [facility] 1.2.840.114 [id number] Univers 14:30:00 15:46:35 ANETTE 350.1.13.10 i ty of Visit [place].2.[place] [id number] [address] 2021-06-13 2021-06-13 Laboratory Only, Ang Db Test [facility] 1.2.8 40.114 [id number] Univers 18:30:00 18:45:00 Only David Pinon 350.1.13.10 ity of [place] 4.2.7.2.686 Juvenal as KRISS?BLEA [id number] [address] MEDICAL OFFICE BUILDING 2021-06-13 2021-06-13 Outpatient R NEVILLE [facility] [id number] Univers 18:30:00 18:30:[address] [facility] 2021-06-13 2021-06-13 Letter Doctor PRISCILLA 1.2.840.114 [id number] Univers 00:00:00 00:00:00 (Out) Unassigned, ROSENDO 350.1.13.10 ity of [place] [facility] 4.2.7.2.686 Juvenal as [id number] [facility] [address] [place] 2021-06-13 2021-06-13 Orders Doctor PRISCILLA 1.2.840.114 [id number] Univers 00:00:00 00:00:00 Only Unassigned, ROSENDO 350.1.13.10 ity of [place] [facility] 4.2.7.2.686 Juvenal as [id number] [facility] [address] [place] 2020-12-19 2020-12-19 [facility] [id number] Co mmon 00:00:00 00:00:00 VISIT EST Spir it PT LEVEL 3 - [facility] 2020-12-18 2020-12-18 (TEL) [facility] [id number] Co mmon 00:00:00 00:00:00 [facility] 2020-10-25 2020-10-25 Outpatient R NAZARIO [facility] [id number] Univers 17:00:00 17:00:00 SARAH ity [facility] 2020-10-24 2020-10-24 Laboratory Lab, Adc Fam Pob I [facility] 1.2. 840.114 [id number] Univers 16:59:00 17:19:00 Only Faith [facility] 350.1.13.10 ity of [place] 4.2.7.2.686 Juvenal as Professio [id number] [address] Office Building [address] 2020-10-24 2020-10-24 Outpatient R MARIANA [facility] [id number] Univers 17:00:00 17:00:00 FAITH [address] o f [facility] 2020-10-24 2020-10-24 Orders Doctor PRISCILLA Munguia.2.840.114 [id number] Univers 00:00:00 00:00:00 Only Unassigned, ROSENDO 350.1.13.10 ity of [place] [facility] 4.2.7.2.686 Juvenal as [id number] [facility] [address] 2020-10-24 2020-10-24 Letter Doctor PRISCILLA 1.2.840.114 [id number] Univers 00:00:00 00:00:00 (Out) Unassigned, ROSENDO 350.1.13.10 ity of [place] [facility] 4.2.7.2.686 Juvenal as [id number] [facility] [address] 2020-09-23 2020-09-23 Emergency X YARIMURALI, [facility] ERT [id number] Univers 06:47:00 06:47:00 WADE ity [facility] 2020-08-02 2020-08-02 (TEL) STLMLC STLMLC [id number] Co mmon 00:00:00 00:00:00 Spirit - [facility] 2020-08-02 2020-08-02 OL DIG E/M STLMLC STLMLC [id number] Common 00:00:00 00:00:00 [facility]-20 Spir it MIN - [facility] 2020-06-01 2020-06-01 OFFICE STLMLC STLMLC [id number] Co mmon 00:00:00 00:00:00 VISIT EST Spir it PT LEVEL 3 - [facility] 2020-03-08 2020-03-08 PREV VISIT STLMLC STLMLC [id number] Common 00:00:00 00:00:00 - EST - Spirit AGE 12-17 - [facility] 2020-01-06 2020-01-06 Outpatient [facility] [id number] Common 15:50:00 15:50:[address] [facility] [address] [facility] 2018-11-26 2018-11-26 Outpatient [facility] [id number] Common 11:40:00 11:40:[address] [facility] [address] [facility] 2018-07-26 2018-07-26 Outpatient [facility] [id number] Common 21:51:00 21:51:[address] [facility] [address] [facility] 2018-07-23 2018-07-23 Outpatient Jose Garciat [id number] Common 14:00:00 14:00:00 t [facility] [address] [facility] 2018-06-25 2018-06-25 Outpatient Jose Chicas [id number] Common 23:45:00 23:45:00 t [facility] [address] [facility] 2018-06-25 2018-06-25 Outpatient Jose Garciat [id number] Common 11:30:00 11:30:00 t [facility] [address] [facility] 2018-02-19 2018-02-19 Outpatient Jose Chicas [id number] Common 16:00:00 16:00:00 [facility] [address] [facility] Results Test Description Test Time Test Comments Results Result Comments Source CBC with Differential 2022-03-28 11:20:54 Test Item Value Reference Range Interpretation Comme nts WBC (test code = 6690-2) See_Comment [A utomated message] The system which ge nerated this result transmit pato reference range: 4.30 - 1 1.10 10*3/?L. The reference r anjelica was not used to interpr et this result as normal/abnor mal. RBC (test code = 789-8) See_Comment L [Au tomated message] The system which ge nerated this result transmit pato reference range: 3.93 - 5 .25 10*6/?L. The reference r anjelica was not used to interpr et this result as normal/abnor mal. HGB (test code = 718-7) 9.8 g/dL 11.6-15 L HCT (test code = 4544-3) 28.7 % 35.7-45.2 L MCV (test code = 787-2) 90.8 fL 80.6-95.5 MCH (test code = 785-6) 31.0 pg 25.9-32.8 MCHC (test code = 786-4) 34.1 g/dL 31.6-35.1 RDW-SD (test code = 91619-4) 40.3 fL 39-49.9 RDW-CV (test code = 788-0) 12.5 % 12-15.5 PLT (test code = 777-3) See_Comment [Au tomated message] The system which ge nerated this result transmit pato reference range: 166 - 35 8 10*3/?L. The reference range was not used to interpret th is result as normal/abnormal . MPV (test code = 13417-7) 9.3 fL 9.5-12.9 L NRBC/100 WBC (test code = See_Comment [ Automated message] The [id number]) system which ge nerated this result transmit pato reference range: 0.0 - 10 .0 /100 WBCs. The reference r anjelica was not used to interpr et this result as normal/abnor mal. NRBC x10^3 (test code = See_Comment [Au tomated message] The [id number]) system which ge nerated this result transmit pato reference range: 10*3/?L. The reference range was not u sed to interpret this result as normal/abnormal . GRAN MAT (NEUT) % (test code 75.0 % = 770-8) IMM GRAN % (test code = 0.30 % [id number]) LYMPH % (test code = 736-9) 14.0 % MONO % (test code = 5905-5) 9.0 % EOS % (test code = 713-8) 1.4 % BASO % (test code = 706-2) 0.3 % GRAN MAT x10^3(ANC) (test 7.33 10*3/uL 1.88-7.09 H code = 9113678055) IMM GRAN x10^3 (test code = 0.03 10*3/uL 0-0.06 [id number]) LYMPH x10^3 (test code = 1.37 10*3/uL 1.32-3.29 731-0) MONO x10^3 (test code = 0.88 10*3/uL 0.33-0.92 742-7) EOS x10^3 (test code = 0.14 10*3/uL 0.03-0.39 711-2) BASO x10^3 (test code = 0.03 10*3/uL 0.01-0.07 704-7) Lab Interpretation (test Abnormal code = 62242-6) [facility] [id number] 21:31:43 Test Item Value Reference Range Interpretation Comments RHIG CANDIDATE? No- see comment Patient i s not a (test code = candidate for R hIg- 5055) Patient is Rh Positive.Perfor med at [facility] Laboratory Services - [facility] [address] Free: [phone] A No. [id number] [facility]Type and Screen - ONCE [id number] 20:52:26 Test Item Value Reference Range Interpretation Comments ABO & RH (test code O Positive Performe d at [facility] = 20) Laboratory Serv [facility] [address] [place] [address] Free: [phone] A No. [id number] IAT (test code = Negative Performed a t [facility] 1185) Laboratory Serv [facility] [place], [place] [address]Toll Free: [phone] A No. [id number] [facility]/O SPECIFIC [id number] 20:52:00 Test Item Value Reference Range Interpretation Comments POCT PH U (test code = 3254) n/a 5-8 POCT U LEUK EST (test code = n/a Negative - Negative 3263) POCT U NIT (test code = 3262) n/a Negative - Negative POCT U PROT (test code = 3259) Negative - Negative POCT U GLU (test code = 3256) negative Negative - Negative POCT U KETONE (test code = 3258) n/a Negative - Negative POCT U BLD (test code = 3257) n/a Negative - Negative [facility]/O SPECIFIC [id number] 21:17:00 Test Item Value Reference Range Interpretation Comments POCT PH U (test code = 3254) N/A 5-8 POCT U LEUK EST (test code = N/A Negative - Negative 3263) POCT U NIT (test code = 3262) N/A Negative - Negative POCT U PROT (test code = 3259) Trace Negative - Negative POCT U GLU (test code = 3256) Negative Negative - Negative POCT U KETONE (test code = 3258) N/A Negative - Negative POCT U BLD (test code = 3257) N/A Negative - Negative [facility]/O SPECIFIC [id number] 18:16:00 Test Item Value Reference Range Interpretation Comments POCT PH U (test code = 3254) n/a 5-8 POCT U LEUK EST (test code = n/a Negative - Negative 3263) POCT U NIT (test code = 3262) n/a Negative - Negative POCT U PROT (test code = 3259) + Negative - Negative POCT U GLU (test code = 3256) negative Negative - Negative POCT U KETONE (test code = 3258) n/a Negative - Negative POCT U BLD (test code = 3257) n/a Negative - Negative [facility] [facility]/O SPECIFIC [id number] 21:14:00 Test Item Value Reference Range Interpretation Comments POCT PH U (test code = 3254) n/a 5-8 POCT U LEUK EST (test code = n/a Negative - Negative 3263) POCT U NIT (test code = 3262) n/a Negative - Negative POCT U PROT (test code = 3259) negative Negative - Negative POCT U GLU (test code = 3256) trace Negative - Negative POCT U KETONE (test code = 3258) n/a Negative - Negative POCT U BLD (test code = 3257) n/a Negative - Negative Lab Interpretation (test code = Normal 72366-4) [id number] 14:36:43 Test Item Value Reference Range Interpretation Comments GLU FASTNG (test code = 5538761392) 77 mg/dL 70-110 Lab Interpretation (test code = Normal 49628-3) [facility] [id number] 21:09:00 Test Item Value Reference Range Interpretation Comments POCT PH U (test code = 3254) n/a 5-8 POCT U LEUK EST (test code = n/a Negative - Negative 3263) POCT U NIT (test code = 3262) n/a Negative - Negative POCT U PROT (test code = 3259) negative Negative - Negative POCT U GLU (test code = 3256) negative Negative - Negative POCT U KETONE (test code = 3258) n/a Negative - Negative POCT U BLD (test code = 3257) n/a Negative - Negative Lab Interpretation (test code = Normal 24053-6) [facility]CIFIC [id number] 21:01:00 Test Item Value Reference Range Interpretation Comments POCT PH U (test code = 3254) n/a 5-8 POCT U LEUK EST (test code = n/a Negative - Negative 3263) POCT U NIT (test code = 3262) n/a Negative - Negative POCT U PROT (test code = 3259) Negative Negative - Negative POCT U GLU (test code = 3256) Negative Negative - Negative POCT U KETONE (test code = 3258) n/a Negative - Negative POCT U BLD (test code = 3257) n/a Negative - Negative [facility] W/O SPECIFIC [id number] 21:21:00 Test Item Value Reference Range Interpretation Comments POCT PH U (test code = 3254) n/a 5-8 POCT U LEUK EST (test code = 3263) n/a Negative - Negative POCT U NIT (test code = 3262) n/a Negative - Negative POCT U PROT (test code = 3259) neg Negative - Negative POCT U GLU (test code = 3256) neg Negative - Negative POCT U KETONE (test code = 3258) n/a Negative - Negative POCT U BLD (test code = 3257) n/a Negative - Negative [facility] W SPECIFIC [id number] 20:57:00 Test Item Value Reference Range Interpretation Comments POCT U SP GRAV (test 1.020 mg/dl 1.005-1.025 code = 3255) POCT PH U (test code = 6 mg/dl 5-8 3254) POCT U LEUK EST (test + Negative - code = 3263) Negative POCT U NIT (test code neg Negative - = 3262) Negative POCT U PROT (test code trace Negative - = 3259) Negative POCT U GLU (test code norm Negative - = 3256) Negative POCT U KETONE (test neg Negative - code = 3258) Negative POCT U UROBILI (test norm 0.2-1 code = 3260) POCT U BILI (test code neg Negative - = 3261) Negative POCT U BLD (test code neg Negative - = 3257) Negative POCT U COLOR (test yellow code = 3266) POCT U APPEAR (test cloudy code = 3267) DESTINY (test code = DESTINY) accurate development and interpretation of all internal controls Lab Interpretation Abnormal (test code = 86628-5) [facility] W[facility] SPECIFIC [id number] 20:58:00 Test Item Value Reference Range Interpretation Comments POCT PH U (test code = 3254) n/a 5-8 POCT U LEUK EST (test code = n/a Negative - Negative 3263) POCT U NIT (test code = 3262) n/a Negative - Negative POCT U PROT (test code = 3259) negative Negative - Negative POCT U GLU (test code = 3256) negative Negative - Negative POCT U KETONE (test code = 3258) n/a Negative - Negative POCT U BLD (test code = 3257) n/a Negative - Negative Lab Interpretation (test code = Normal 29226-4) [facility] W[facility] SPECIFIC [id number] 21:09:00 Test Item Value Reference Range Interpretation Comments [...] code = 3257) n/a Negative - Negative [facility] [id number] 00:00:00 Test Item Value Reference Range Interpretation Comments Result (test code = 46824-2) Negative SARS-COV 2 AntigenSARS-COV 2 Antigen
[2022-05-03 14:49] LABS: SARS-COV-2 RT PCR NEGATIVE (NEGATIVE)
--- NOTE | 2022-05-03 15:09 | EDPHYS ---
Physician Documentation [facility] Name: Peace Garcia Age: 21 yrs Sex: Female : 2000 Arrival Date: 05/03/2022 Time: 12:51 Bed Treatment Private MD: ED Physician Flores Lyman HPI: 05/03 13:35 This 21 yrs old Female presents to ER via Ambulatory with complaints of Flu Symptoms. cp 13:35 The patient or guardian reports flu symptoms, cough, body aches, sore throat. cp 13:35 Onset: The symptoms/episode began/occurred yesterday. Associated signs and symptoms: cp Pertinent positives: sore throat, Pertinent negatives: chest pain, diarrhea, ear ache, fever, vomiting. Severity of symptoms: in the emergency department the symptoms are unchanged despite home interventions. 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 - Social history:: Smoking status: Reported history of juuling and/or vaping. ROS: 13:40 Constitutional: Positive for body aches, Negative for fever, poor PO intake. cp 13:40 Eyes: Negative for injury, pain, redness, and discharge. cp 13:40 ENT: Positive for sore throat, Negative for drainage from ear(s), ear pain, difficulty swallowing, difficulty handling secretions. 13:40 Respiratory: Positive for cough, Negative for shortness of breath, wheezing. 13:40 Abdomen/GI: Negative for abdominal pain, vomiting, diarrhea, constipation. 13:40 Neuro: Negative for altered mental status, dizziness, headache, weakness. 13:40 All other systems are negative. Exam: 13:45 Constitutional: The patient appears in no acute distress, alert, awake, non-toxic, well cp developed, well nourished. 13:45 Head/Face: Normocephalic, atraumatic. cp 13:45 Eyes: Periorbital structures: appear normal, Conjunctiva: normal, no exudate, no injection, Sclera: no appreciated abnormality, Lids and lashes: appear normal, bilaterally. 13:45 ENT: External ear(s): are unremarkable, Ear canal(s): are normal, clear, TM's: dullness, bilaterally, Nose: is normal, Mouth: Lips: moist, Oral mucosa: moist, Posterior pharynx: Airway: no evidence of obstruction, patent, Tonsils: with erythema, no enlargement, no exudate, swelling, is not appreciated, erythema, that is mild, exudate, is not appreciated. 13:45 Neck: ROM/movement: is normal, is supple, without pain, no range of motions limitations, no meningismus. 13:45 Chest/axilla: Inspection: normal. 13:45 Cardiovascular: Rate: tachycardic, Rhythm: regular. 13:45 Respiratory: the patient does not display signs of respiratory distress, Respirations: normal, no use of accessory muscles, no retractions, labored breathing, is not present, Breath sounds: are clear throughout, no decreased breath sounds, no stridor, no wheezing. 13:45 Abdomen/GI: Exam negative for discomfort, distension, guarding, Inspection: abdomen appears normal. 13:45 Skin: no rash present. Vital Signs: 13:02 BP 106 / 79; Pulse 125; Resp 17; Temp 99.1; Pulse Ox 97% ; Weight 56.7 kg; Height 5 ft. jl7 7 in. (170.18 cm); Pain 5/10; 15:25 BP 110 / 74; Pulse 105; Resp 16; Pulse Ox 100% on R/A; mb9 13:02 Body Mass Index 19.58 (56.70 kg, 170.18 cm) jl7 MDM: 13:16 Patient medically screened. cp 14:00 Differential diagnosis: bronchitis, flu, strep throat, COVID-19. cp 15:08 Data reviewed: vital signs, nurses notes, lab test result(s), and as a result, I will cp discharge patient. 15:08 Counseling: I had a detailed discussion with the patient and/or guardian regarding: the cp historical points, exam findings, and any diagnostic results supporting the discharge/admit diagnosis, lab results, to return to the emergency department if symptoms worsen or persist or if there are any questions or concerns that arise at home. 05/03 13:27 Order name: COVID-19/FLU A+B/RSV (Document "Date of Onset" if Symptomatic); Complete cp Time: 15:04 05/03 15:04 Interpretation: INFLUENZA A POSITIVE; Reviewed. cp 05/03 13:27 Order name: Strep; Complete Time: 14:52 cp 05/03 14:53 Interpretation: Reviewed. cp 05/03 14:27 Order name: Throat Culture EDW[place] 05/03 14:53 Order name: Vital Signs: please update cp Administered Medications: No medications were administered Disposition Summary: 05/03/22 15:08 Discharge Ordered Location: Home cp Problem: new cp Symptoms: have improved cp Condition: Stable cp Diagnosis - Influenza due to identified novel influenza A virus with other respiratory cp manifestations Followup: cp - With: Private Physician - When: 2 - 3 days - Reason: Worsening of condition Discharge Instructions: - Discharge Summary Sheet cp - Influenza, Adult cp Forms: - Medication Reconciliation Form cp - Thank You Letter cp - Antibiotic Education cp - Prescription Opioid Use cp Prescriptions: - Bromfed DM 2-30-10 mg/5 mL Oral syrup - take 10 milliliter by ORAL route every 6 hours; 180 milliliter; Refills: 0, cp Product Selection Permitted - Ibuprofen 600 mg Oral Tablet - take 1 tablet by ORAL route every 8 hours As needed take with food; 30 tablet; cp Refills: 0, Product Selection Permitted - Tamiflu 75 mg Oral Capsule - take 1 capsule by ORAL route every 12 hours for 5 days; 10 capsule; Refills: 0, cp Product Selection Permitted Signatures: Dispatcher [employer] ED[facility] Shaheen Saunders PA PA cp Leal, Jahala RN RN Aminata Hicks RN RN mb9 Corrections: (The following items were deleted from the chart) 15:04 15:04 Reviewed. cp cp 15:41 13:05 Home Meds: None; malka ceja
--- NOTE | 2022-05-03 15:09 | ER ---
Nurse's Notes [facility] Name: Peace Garcia Age: 21 yrs Sex: Female : 2000 Arrival Date: 05/03/2022 Time: 12:51 Bed Treatment Private MD: Diagnosis: Influenza due to identified novel influenza A virus with other respiratory manifestations Presentation: 05/03 13:02 Chief complaint: Patient states: Cough, sore throat, temp 99.4 since yesterday. jl7 Coronavirus screen: Vaccine status: Patient reports being unvaccinated. cough unrelated to allergies, muscle pain. Ebola Screen: No symptoms or risks identified at this time. Initial Sepsis Screen: Does the patient meet any 2 criteria? No. Patient's initial sepsis screen is negative. Does the patient have a suspected source of infection? No. Patient's initial sepsis screen is negative. Risk Assessment: Do you want to hurt yourself or someone else? Patient reports no desire to harm self or others. Onset of symptoms was May 02, 2022. Care prior to arrival: None. 13:02 Method Of Arrival: Ambulatory [facility] 13:02 Acuity: RAKAN 4 jl7 Triage Assessment: 13:05 General: Appears in no apparent distress. uncomfortable, Behavior is calm, cooperative, jl7 appropriate for age. Pain: Complains of pain in sore throat Pain currently is 5 out of 10 on a pain scale. Neuro: Level of Consciousness is awake, alert, obeys commands, Oriented to person, place, time, situation. PRODUCTION COUNTER: 13:05 LMP N/A - Recent [facility] Historical: - Allergies: 13:05 No Known Allergies; jl7 - Home Meds: 13:05 Diclegis Oral [Active]; Zofran Oral [Active]; mb9 - PMHx: 13:05 Asthma; GERD; jl7 - PSHx: 13:05 None; jl7 - Immunization history:: Client reports having NOT received the Covid vaccine. - Social history:: Smoking status: Reported history of juuling and/or vaping. Screenin:10 Abuse screen: Denies threats or abuse. Nutritional screening: No deficits noted. mb9 Tuberculosis screening: No symptoms or risk factors identified. Fall Risk None identified. Assessment: 13:15 General: Appears in no apparent distress. comfortable, Behavior is calm, cooperative, mb9 appropriate for age. 13:15 Pain: Denies pain. Neuro: Level of Consciousness is awake, alert, obeys commands, mb9 Oriented to person, place, time, situation, Appropriate for age. Cardiovascular: Heart tones S1 S2 present Rhythm is sinus tachycardia. Respiratory: Reports cough that is non-productive, Airway is patent Respiratory effort is even, unlabored, Respiratory pattern is regular, symmetrical, Breath sounds are clear bilaterally. GI: Abdomen is flat, Bowel sounds present X 4 quads. Abd is soft and non tender X 4 quads. Patient currently denies diarrhea, nausea. : No signs and/or symptoms were reported regarding the genitourinary system. EENT: Throat is reddened. Derm: Skin is pink, warm \\T\\ dry. Musculoskeletal: Range of motion: intact in all extremities. 15:25 General: Appears in no apparent distress. comfortable, Behavior is calm, cooperative, mb9 appropriate for age. 15:25 Pain: Denies pain. Neuro: Level of Consciousness is awake, alert, obeys commands, mb9 Oriented to person, place, time, situation, Appropriate for age. Respiratory: Airway is patent. Derm: Skin is pink, warm \\T\\ dry. Vital Signs: 13:02 BP 106 / 79; Pulse 125; Resp 17; Temp 99.1; Pulse Ox 97% ; Weight 56.7 kg; Height 5 ft. jl7 7 in. (170.18 cm); Pain 5/10; 15:25 BP 110 / 74; Pulse 105; Resp 16; Pulse Ox 100% on R/A; mb9 13:02 Body Mass Index 19.58 (56.70 kg, 170.18 cm) jl7 ED Course: 12:51 Patient arrived in ED. as 13:04 Triage completed. jl7 13:05 Arm band placed on right wrist. jl7 13:10 Shaheen Saunders PA is PHCP. cp 13:10 Flores Lyman MD is Attending Physician. cp 13:10 Bed in low position. Call light in reach. Side rails up X 1. Client placed on mb9 continuous cardiac and pulse oximetry monitoring. NIBP monitoring applied. telemetry monitor on. 13:30 Aminata Dubose RN is Primary Nurse. mb9 13:45 Strep Sent. mb9 13:45 COVID-19/FLU A+B/RSV (Document "Date of Onset" if Symptomatic) Sent. mb9 15:40 No provider procedures requiring assistance completed. Patient did not have IV access mb9 during this emergency room visit. Administered Medications: No medications were administered Medication: 13:10 VIS not applicable for this client. mb9 Outcome: 15:08 Discharge ordered by . manolo 15:41 Discharged to home ambulatory. mb9 15:41 Condition: stable 15:41 Discharge instructions given to patient, Instructed on discharge instructions, follow up and referral plans. Demonstrated understanding of instructions, follow-up care, medications, Prescriptions given X 3. 15:41 Patient left the ED. mb9 Signatures: Emily Valles Corey, PA PA cp Leal, Jahala, RN RN [email or web address] Aminata Dubose RN RN mb9 Corrections: (The following items were deleted from the chart) 15:41 13:05 Home Meds: None; malka [email or web address]
[2022-05-03 16:20] VITALS: TEMP 99.1
[2022-05-03 16:46] VITALS: BP 110/74; O2SAT 100
== END 2022-05-03 15:41 | disposition home or self-care (01) ==
LOC: ER 12:46
DX: J09.X2 Influenza due to identified novel influenza A virus with other respiratory manifestations (principal); J45.909 Unspecified asthma, uncomplicated; K21.9 Gastro-esophageal reflux disease without esophagitis; Z20.822 Contact with and (suspected) exposure to COVID-19
CPT/HCPCS: 87070; 87081; 0241U; 99284

== ENCOUNTER 2022-05-30 00:01 | Emergency (ER) | payer BC, OTHER ==
--- OUTSIDE RECORDS SUMMARY | 2022-05-30 00:10 | XMS REPORT | Continuity of Care Document ---
:2002 Author Organization [facility] t Address [address] [place] [address] Care Team Providers Name Role Phone PCP, PATIENT DOES NOT HAVE A Primary Care Physician Unavaila patrick Silva, Na L Attending Clinician Unavailable Isamar Jameson Attending Clinician Unavailable EMELIA NORTON Attending Clinician Unavailable EMELIA NORTON Attending Clinician Unavailable Sole Bentley RN Attending Clinician Unavailable OLMAN VIZCAINO Attending Clinician Unavailable Olman Vizcaino MD Attending Clinician Yunior Bailey CRNA Attending Clinician Priscilla Alvarado MD Attending Clinician Only, Adc Test Attending Clinician Unavailable Michi Valdovinos MD Attending Clinician MICHI VALDOVINOS Attending Clinician Unavailable Lab, Ang - Db Attending Clinician Unavailable Doctor Unassigned, [place] Attending Clinician Unavailable Pob, Adc Lab Main Attending Clinician Unavailable Ultrasound, Adc Mfm Attending Clinician Unavailable Iona Courtney MD Attending Clinician IONA COURTNEY Attending Clinician Unavailable Alvarez Lugo Attending Clinician Aamir Trujillo RN Attending Clinician Unavailable HARLEEN ERVIN Attending Clinician [...] Date Expiration Date S ource [employer] OF [place] - [id number] 2021 OUT OF STATE 00:00:00 [place] CHILDREN [id number] 2021 STAR 00:00:00 AETNA C1 [id number] 2020 [facility] 00:00:00 - [facility] CIGNA C1 [id number] 2018 [facility] 00:00:00 [facility] Problems Condition Condition Condition Status Onset Resolution Last Treating Co mments Source Name Details Category Date Date Treatment Clinician Date Negative Negative Disease Active 2021-06 Unive rs depression depression 0-30 [place] [facility] Liveborn Liveborn Disease Active 2021-06 Unive rs infant, of infant, of 0-06 [place] of [place] , , 00 [place] dical born in born in [facility] by vaginal by vaginal delivery delivery Encounter Encounter Disease Active 2021-06 Uni vers for for 0-05 ity of routine routine 00:00: [place] 00 Me dical follow-up follow-up Bran ch Asthma Asthma Disease Active Univers without without 8-17 ity of status status 00:00: [place] asthmaticu asthmaticu 00 Me dical s s [place] Chlamydia Chlamydia Disease Active 2022-0 Uni vers trachomati trachomati 2-21 it y of s s 00:00: [place] infection infection 00 Medi peggy of lower of lower Branch genitourin genitourin iraida sites iraida sites Nausea/vom Nausea/vom Disease Active 2021-0 U nivers iting in [place] -21 [place] Supervisio Supervisio Disease Active 2021-0 U nivers n of other n of other - it y of normal normal 00:00: [place] [address] [facility] Branch [id number] Vitamin D Problem Active Comm on deficiency [facility] Asthma Asthma, Problem Active Common unspecifie [facility] d asthma - [facility] severity, St unspecifie [facility] d whether Medical complicate Center d, unspecifie d whether persistent Sinus Sinus Problem Active Common problem problem [facility] Seasonal Seasonal Problem Active Commo n allergy allergies [facility] [id number] Hyperglyce Problem Active Com mon tristian [facility] Allergies, Adverse Reactions, Alerts Allergy Allergy Status Severity Reaction(s) Onset Inactive Treating Comm ents Source Name Type Date Date Clinician NO KNOWN Drug Active Univers ALLERGIE Class ity of S [facility] Social History Social Habit Start Date Stop Date Quantity Comments Source ASSERTION 2021-07-10 [facility] 00:00:00 [facility] History of [facility] - Tobacco Use [facility] Alcohol intake 2022-05-22 2022-05-22 Ex-drinker [facility] 00:00:00 00:00:00 (finding) [facility] Exposure to 2022-05-03 2022-05-13 Not sure [facility]-CoV-2 00:00:00 15:20:00 [facility] (event) [place] Tobacco use and 2022-01-06 2022-01-06 Smokeless tobacco Un iversity of exposure 00:00:00 00:00:00 non-user [facility] Smoking Status Start Date Stop Date Source Unknown if ever smoked [facility] Never smoked tobacco [facility] Medications Ordered Filled Start Stop Current Ordering Indication Dosage Frequency Signature Comments Components Source Medication Medication Date Date Medication? Clinician (SIG) Name Name levonorgest 2021-06- No [id number] 1{[facility]ly [facility] reL 07-23 e} ity of (KYLEENA) 18:00: 17:13 [place] IUD 1 00 :00 [place] [facility] levonorgest 2021-06- No [id number] 1{devi 1 Device, Univers reL 07-23 e} Intrauteri ity of (KYLEENA) 18:00: 17:13 [place] 1 [place] :00 1 dose, On [facility] [facility] Branch 05/22/22 at 1200, Routine levonorgest 2021-06- No [id number] 1{[facility] Univers reL 07-23 e} ity of (KYLEENA) 18:00: 17:13 [place] IUD 1 00 :00 [place] [facility] levonorgest 2021-06- No [id number] 1{devi 1 Device, Univers reL 07-23 e} Intrauteri ity of (KYLEENA) 18:00: 17:13 [place] 1 00 :00 1 dose, On [place] [facility] Branch 05/22/22 at 1200, Routine norgestimat 2021-06 Yes [id number] 1{tbl} Take 1 Univers e-ethinyl 2-01 tablet by ity o f estradioL 00:00: [place] 0.25-35 00 the Medical mg-mcg per morning. Branc h tablet norgestimat 2021-06 Yes [id number] 1{tbl} Take 1 Univers e-ethinyl 2-01 tablet by ity o f estradioL 00:00: [place] 0.25-35 00 the Medical mg-mcg per morning. Branc h tablet norgestimat 2021-06 Yes [id number] 1{tbl} Take 1 Univers e-ethinyl 2-01 tablet by ity o f estradioL 00:00: [place] 0.25-35 00 the Medical mg-mcg per morning. Branc h tablet oseltamivir 2021-06 Yes TAKE 1 Univ ers 75 mg 1-12 CAPSULE BY ity of capsule 00:00: MOUTH [place] 00 EVERY 12 Medical HOURS FOR Branch 5 DAYS oseltamivir 2021-06 Yes TAKE 1 Univ ers 75 mg 1-12 CAPSULE BY ity of capsule 00:00: MOUTH [place] 00 EVERY 12 Medical HOURS FOR Branch 5 DAYS oseltamivir 2021-06 Yes TAKE 1 Univ ers 75 mg 1-12 CAPSULE BY ity of capsule 00:00: MOUTH [place] 00 EVERY 12 Medical HOURS FOR Branch 5 DAYS oseltamivir 2021-06 Yes TAKE 1 Univ ers 75 mg 1-12 CAPSULE BY ity of capsule 00:00: MOUTH [place] 00 EVERY 12 Medical HOURS FOR Branch 5 DAYS 2021-06- No 1{tbl} Take 1 Univ ers VITAMIN 0-08 10-26 tablet by ity of 00:00: 00:00 mouth [place] 00 :00 daily. Medical Branch witch Tito 2021-06 Yes Topical, Un betsy (TUCKS) 50 0-07 PRN, ity of % topical 00:05: [place] pad 26 on [place] Medical 03/27/22 at Branch 1905, Until Discontinu ed, Routine, Pain (scale 1-3) ascorbic 2021-06 Yes [id number] 500mg Take 1 U nivers acid, 0-07 tablet by ity of vitamin C, 00:00: mouth [place] 500 mg 00 the Medical tablet morning. Branch Take with iron. ferrous 2021-06 Yes [id number] 325mg Take 1 Un betsy sulfate 0-07 tablet by ity of (IRON, 00:00: mouth in [place] FERROUS 00 the Medical SULFATE,) morning. Branch 325 mg (65 mg iron) tablet 2021-06 Yes [id number] 1{tbl} Take 1 U nivers 25-iron-fol 0-07 tablet by ity of ate 6-dha 00:00: mouth [place] 30 mg 00 daily. Medical iron-1mg Branch -200 mg Cap docusate 2021-06 Yes [id number] 200mg Take 2 Univers 100 mg 0-07 102 capsules ity of capsule 00:00: by mouth [place] 00 once daily Medical as needed Branch for Constipati on. ibuprofen 2021-06 Yes [id number] 600mg Take 1 Univers 600 mg 0-07 102 tablet by ity of tablet 00:00: mouth [place] 00 every 6 Medical (six) Branch hours as needed (Pain). Take with food or milk. ascorbic 2021-06 Yes [id number] 500mg Take 1 U nivers acid, 0-07 tablet by ity of vitamin C, 00:00: mouth in [place] 500 mg 00 the Medical tablet morning. Branch Take with iron. ferrous 2021-06 Yes [id number] 325mg Take 1 Un betsy sulfate 0-07 tablet by ity of (IRON, 00:00: mouth in [place] FERROUS 00 the Medical SULFATE,) morning. Branch 325 mg (65 mg iron) tablet 2021-06 Yes [id number] 1{tbl} Take 1 U nivers 25-iron-fol 0-07 tablet by ity of ate 6-dha 00:00: mouth [place] 30 mg 00 daily. Medical iron-1mg Branch -200 mg Cap docusate 2021-06 Yes [id number] 200mg Take 2 Univers 100 mg 0-07 102 capsules ity of capsule 00:00: by mouth [place] 00 once daily Medical as needed Branch for Constipati on. ibuprofen 2021-06 Yes [id number] 600mg Take 1 Univers 600 mg 0-07 102 tablet by ity of tablet 00:00: mouth [place] 00 every 6 Medical (six) Branch hours as needed (Pain). Take with food or milk. ascorbic 2021-06 Yes [id number] 500mg Take 1 U nivers acid, 0-07 tablet by ity of vitamin C, 00:00: mouth in [place] 500 mg 00 the Medical tablet morning. Branch Take with iron. ferrous 2021-06 Yes [id number] 325mg Take 1 Un betsy sulfate 0-07 tablet by ity of (IRON, 00:00: mouth in [place] FERROUS 00 the Medical SULFATE,) morning. Branch 325 mg (65 mg iron) tablet 2021-06 Yes [id number] 1{tbl} Take 1 U nivers 25-iron-fol 0-07 tablet by ity of ate 6-dha 00:00: mouth [place] 30 mg 00 daily. Medical iron-1mg Branch -200 mg Cap docusate 2021-06 Yes [id number] 200mg Take 2 Univers 100 mg 0-07 102 capsules ity of capsule 00:00: by mouth [place] 00 once daily Medical as needed Branch for Constipati on. ibuprofen 2021-06 Yes [id number] 600mg Take 1 Univers 600 mg 0-07 102 tablet by ity of tablet 00:00: mouth [place] 00 every 6 Medical (six) Branch hours as needed (Pain). Take with food or milk. ascorbic 2021-06 Yes [id number] 500mg Take 1 U nivers acid, 0-07 tablet by ity of vitamin C, 00:00: mouth in [place] 500 mg 00 the Medical tablet morning. Branch Take with iron. ferrous 2021-06 Yes [id number] 325mg Take 1 Un betsy sulfate 0-07 tablet by ity of (IRON, 00:00: mouth in [place] FERROUS 00 the Medical SULFATE,) morning. Branch 325 mg (65 mg iron) tablet 2021-06 Yes [id number] {tbl} Take 1 U nivers 25-iron-fol 0-07 tablet by ity of ate 6-dha 00:00: mouth [place] 30 mg 00 daily. Medical iron-1mg Branch -200 mg Cap docusate 2021-06 Yes [id number] 200mg Take 2 Univers 100 mg 0-07 102 capsules ity of capsule 00:00: by mouth [place] 00 once daily Medical as needed Branch for Constipati on. ibuprofen 2021-06 Yes [id number] 600mg Take 1 [facility] 600 mg 0-07 102 tablet by ity of tablet 00:00: mouth [place] 00 every 6 Medical (six) Branch hours as needed (Pain). Take with food or milk. ascorbic 2021-06 Yes [id number] 500mg Take 1 U nivers acid, 0-07 tablet by ity of vitamin C, 00:00: mouth in [place] 500 mg 00 the Medical tablet morning. Branch Take with iron. ferrous 2021-06 Yes [id number] 325mg Take 1 Un betsy sulfate 0-07 tablet by ity of (IRON, 00:00: mouth in [place] FERROUS 00 the Medical SULFATE,) morning. Branch 325 mg (65 mg iron) tablet 2021-06 Yes [id number] {tbl} Take 1 U nivers 25-iron-fol 0-07 tablet by ity of ate 6-dha 00:00: mouth [place] 30 mg 00 daily. Medical iron-1mg Branch -200 mg Cap docusate 2021-06 Yes [id number] 200mg Take 2 Univers 100 mg 0-07 102 capsules ity of capsule 00:00: by mouth [place] 00 once daily Medical as needed Branch for Constipati on. ibuprofen 2021-06 Yes [id number] 600mg Take 1 [facility] 600 mg 0-07 102 tablet by ity of tablet 00:00: mouth [place] 00 every 6 Medical (six) Branch hours as needed (Pain). Take with food or milk. ascorbic 2021-06 Yes [id number] 500mg Take 1 U nivers acid, 0-07 tablet by ity of vitamin C, 00:00: mouth in [place] 500 mg 00 the Medical tablet morning. Branch Take with iron. ferrous 2021-06 Yes [id number] 325mg Take 1 Un betsy sulfate 0-07 tablet by ity of (IRON, 00:00: mouth in [place] FERROUS 00 the Medical SULFATE,) morning. Branch 325 mg (65 mg iron) tablet 2021-06 Yes [id number] 1{tbl} Take 1 U nivers 25-iron-fol 0-07 tablet by ity of ate 6-dha 00:00: mouth [place] 30 mg 00 daily. Medical iron-1mg Branch -200 mg Cap docusate 2021-06 Yes [id number] 200mg Take 2 Univers 100 mg 0-07 102 capsules ity of capsule 00:00: by mouth [place] 00 once daily Medical as needed Branch for Constipati on. ibuprofen 2021-06 Yes [id number] 600mg Take 1 Univers 600 mg 0-07 102 tablet by ity of tablet 00:00: mouth [place] 00 every 6 Medical (six) Branch hours as needed (Pain). Take with food or milk. ascorbic 2021-06 Yes [id number] 500mg Take 1 U nivers acid, 0-07 tablet by ity of vitamin C, 00:00: mouth in [place] 500 mg 00 the Medical tablet morning. Branch Take with iron. ferrous 2021-06 Yes [id number] 325mg Take 1 Un betsy sulfate 0-07 tablet by ity of (IRON, 00:00: mouth in [place] FERROUS 00 the Medical SULFATE,) morning. Branch 325 mg (65 mg iron) tablet 2021-06 Yes [id number] 1{tbl} Take 1 U nivers 25-iron-fol 0-07 tablet by ity of ate 6-dha 00:00: mouth [place] 30 mg 00 daily. Medical iron-1mg Branch -200 mg Cap docusate 2021-06 Yes [id number] 200mg Take 2 Univers 100 mg 0-07 102 capsules ity of capsule 00:00: by mouth [place] 00 once daily Medical as needed Branch for Constipati on. ibuprofen 2021-06 Yes [id number] 600mg Take 1 [facility] 600 mg 0-07 102 tablet by ity of tablet 00:00: mouth [place] 00 every 6 Medical (six) Branch hours as needed (Pain). Take with food or milk. ascorbic 2021-06 Yes [id number] 500mg Take 1 U nivers acid, 0-07 tablet by ity of vitamin C, 00:00: mouth in [place] 500 mg 00 the Medical tablet morning. Branch Take with iron. ferrous 2021-06 Yes [id number] 325mg Take 1 Un betsy sulfate 0-07 tablet by ity of (IRON, 00:00: mouth in [place] FERROUS 00 the Medical SULFATE,) morning. Branch 325 mg (65 mg iron) tablet 2021-06 Yes [id number] 1{tbl} Take 1 U nivers 25-iron-fol 0-07 tablet by ity of ate 6-dha 00:00: mouth [place] 30 mg 00 daily. Medical iron-1mg Branch -200 mg Cap docusate 2021-06 Yes [id number] 200mg Take 2 Univers 100 mg 0-07 102 capsules ity of capsule 00:00: by mouth [place] 00 once daily Medical as needed Branch for Constipati on. ibuprofen 2021-06 Yes [id number] 600mg Take 1 Univers 600 mg 0-07 [...] 01 Starting Medi peggy tablet 1 on Thu Branch tablet 03/27/22 at 1622, Until Discontinu ed, Routine, Pain (scale 7-10) ibuprofen 2021-06 Yes 600mg 600 mg, Univ ers (IBU) 0-06 Oral, ity of tablet 600 21:22: Q6HPRN, [place] mg 01 Starting Medical on [facility] Branch 03/27/22 at 1622, Until Discontinu ed, Routine, Pain (scale 4-6) acetaminoph 2021-06 Yes 650mg 650 mg, Un betsy en 0-06 Oral, ity of (TYLENOL) 21:22: Q6HPRN, [place] tablet 650 01 Starting Medic al mg on [facility] Branch 03/27/22 at 1622, Until Discontinu ed, Routine, Pain (scale 1-3) diphenhydrA 2021-06 Yes 25mg 25 mg, Univ ers MINE 0-06 Oral, ity of (BENADRYL) 21:22: Q6HPRN, [place] tablet 25 01 Starting Medica l mg on [facility] Branch 03/27/22 at 1622, Until Discontinu ed, Routine, Sleep, Itching ondansetron 2021-06 Yes 4mg 4 mg, Slow Univers (ZOFRAN 0-06 IV Push, ity of (PF)) 21:22: Q8HPRN, [place] injection 4 01 Starting Medi peggy mg on [facility] Branch 03/27/22 at 1622, Until Discontinu ed, Routine, Nausea and Vomiting (N/V) simethicone 2021-06 Yes 160mg 160 mg, Un betsy (GAS RELIEF 0-06 Oral, ity of (SIMETHICON 21:22: PC+HSPRN, [place] E)) 01 Starting Medical chewable on [facility] tablet 160 03/27/22 at mg 1622, Until Discontinu ed, Routine, Gas docusate 2021-06 Yes 200mg 200 mg, Unive rs (COLACE) 0-06 Oral, ity of capsule 200 21:22: QDAILYPRN, [place] mg 01 Starting Medical on [facility] Branch 03/27/22 at 1622, Until Discontinu ed, Routine, Constipati on magnesium 2021-06 Yes 30mL 30 mL, Univer s hydroxide 0-06 Oral, ity of (MILK OF 21:22: QDAILYPRN, [place] MAGNESIA) 01 Starting Medica l 400 mg/5 mL on [facility] Branch suspension 03/27/22 at 30 mL 1622, [...] of 30 units in 07:00: 21:22 Infusion, [place] NS 500 mL 00 :44 TITRATE, Medica [...] 1622, Routine, Pain (scale 7-10) D5W-LR IV 2021-2021- No 1000mL at 1-125 U nivers infusion 0-05 10-06 mL/hr, IV ity o f 1,000 mL 16:50: 21:22 Infusion, [place] 16 :44 TITRATE, Medical Starting Branch on 03/26/22 at 1150, Until [place] 03/27/22 at 1622, Routine ferrous 2021-0 Yes [id number] 325mg Take 1 Un betsy sulfate 7-31 tablet by ity of (IRON, 00:00: mouth in [place] FERROUS 00 the Medical SULFATE,) morning. Branch 325 mg (65 mg iron) tablet ascorbic Yes [id number] 500mg Take 1 U nivers acid, 7-31 tablet by ity of vitamin C, 00:00: mouth in [place] 500 mg 00 the Medical tablet morning. Branch Take with iron. ferrous Yes [id number] 325mg Take 1 Un betsy sulfate 7-31 tablet by ity of (IRON, 00:00: mouth in [place] FERROUS 00 the Medical SULFATE,) morning. Branch 325 mg (65 mg iron) tablet ascorbic Yes [id number] 500mg Take 1 U nivers acid, 7-31 tablet by ity of vitamin C, 00:00: mouth in [place] 500 mg 00 the Medical tablet morning. Branch Take with iron. ferrous 0 Yes [id number] 325mg Take 1 Un betsy sulfate 7-31 tablet by ity of (IRON, 00:00: mouth in [place] FERROUS 00 the Medical SULFATE,) morning. Branch 325 mg (65 mg iron) tablet ascorbic 0 Yes [id number] 500mg Take 1 U nivers acid, 7-31 tablet by ity of vitamin C, 00:00: mouth in [place] 500 mg 00 the Medical tablet morning. Branch Take with iron. ferrous 0 Yes [id number] 325mg Take 1 Un betsy sulfate 7-31 tablet by ity of (IRON, 00:00: mouth in [place] FERROUS 00 the Medical SULFATE,) morning. Branch 325 mg (65 mg iron) tablet ascorbic 0 Yes [id number] 500mg Take 1 U nivers acid, 7-31 tablet by ity of vitamin C, 00:00: mouth in [place] 500 mg 00 the Medical tablet morning. Branch Take with iron. ferrous 2022-0 Yes [id number] 325mg Take 1 Un betsy sulfate 7-31 tablet by ity of (IRON, 00:00: mouth in [place] FERROUS 00 the Medical SULFATE,) morning. Branch 325 mg (65 mg iron) tablet ascorbic 2021-0 Yes [id number] 500mg Take 1 U nivers acid, 7-31 tablet by ity of vitamin C, 00:00: mouth in [place] 500 mg 00 the Medical tablet morning. Branch Take with iron. ferrous 2021-0 Yes [id number] 325mg Take 1 Un betsy sulfate 7-31 tablet by ity of (IRON, 00:00: mouth in [place] FERROUS 00 the Medical SULFATE,) morning. Branch 325 mg (65 mg iron) tablet ascorbic 2021-0 Yes [id number] 500mg Take 1 U nivers acid, 7-31 tablet by ity of vitamin C, 00:00: mouth in [place] 500 mg 00 the Medical tablet morning. Branch Take with iron. ferrous 2021-0 Yes [id number] 325mg Take 1 Un betsy sulfate 7-31 tablet by ity of (IRON, 00:00: mouth in [place] FERROUS 00 the Medical SULFATE,) morning. Branch 325 mg (65 mg iron) tablet ascorbic 0 Yes [id number] 500mg Take 1 U nivers acid, 7-31 tablet by ity of vitamin C, 00:00: mouth in [place] 500 mg 00 the Medical tablet morning. Branch Take with iron. ferrous 2021-0 Yes [id number] 325mg Take 1 Un betsy sulfate 7-31 tablet by ity of (IRON, 00:00: mouth in [place] FERROUS 00 the Medical SULFATE,) morning. Branch 325 mg (65 mg iron) tablet ascorbic 2021-0 Yes [id number] 500mg Take 1 U nivers acid, 7-31 tablet by ity of vitamin C, 00:00: mouth in [place] 500 mg 00 the Medical tablet morning. Branch Take with iron. ferrous 2021-0 Yes [id number] 325mg Take 1 Un betsy sulfate 7-31 tablet by ity of (IRON, 00:00: mouth in [place] FERROUS 00 the Medical SULFATE,) morning. Branch 325 mg (65 mg iron) tablet ascorbic 2021-0 Yes [id number] 500mg Take 1 U nivers acid, 7-31 tablet by ity of vitamin C, 00:00: mouth in [place] 500 mg 00 the Medical tablet morning. Branch Take with iron. ferrous 0 Yes [id number] 325mg Take 1 Un betsy sulfate 7-31 tablet by ity of (IRON, 00:00: mouth in [place] FERROUS 00 the Medical SULFATE,) morning. Branch 325 mg (65 mg iron) tablet ascorbic 0 Yes [id number] 500mg Take 1 U nivers acid, 7-31 tablet by ity of vitamin C, 00:00: mouth in [place] 500 mg 00 the Medical tablet morning. Branch Take with iron. ferrous 0 Yes [id number] 325mg Take 1 Un betsy sulfate 7-31 tablet by ity of (IRON, 00:00: mouth in [place] FERROUS 00 the Medical SULFATE,) morning. Branch 325 mg (65 mg iron) tablet ascorbic 0 Yes [id number] 500mg Take 1 U nivers acid, 7-31 tablet by ity of vitamin C, 00:00: mouth in [place] 500 mg 00 the Medical tablet morning. Branch Take with iron. ferrous 0 Yes [id number] 325mg Take 1 Un betsy sulfate 7-31 tablet by ity of (IRON, 00:00: mouth in [place] FERROUS 00 the Medical SULFATE,) morning. Branch 325 mg (65 mg iron) tablet ascorbic 0 Yes [id number] 500mg Take 1 U nivers acid, 7-31 tablet by ity of vitamin C, 00:00: mouth in [place] 500 mg 00 the Medical tablet morning. Branch Take with iron. ferrous 0 Yes [id number] 325mg Take 1 Un betsy sulfate 7-31 tablet by ity of (IRON, 00:00: mouth in [place] FERROUS 00 the Medical SULFATE,) morning. Branch 325 mg (65 mg iron) tablet ascorbic 0 Yes [id number] 500mg Take 1 U nivers acid, 7-31 tablet by ity of vitamin C, 00:00: mouth in [place] 500 mg 00 the Medical tablet morning. Branch Take with iron. ferrous 0 Yes [id number] 325mg Take 1 Un betsy sulfate 7-31 tablet by ity of (IRON, 00:00: mouth in [place] FERROUS 00 the Medical SULFATE,) morning. Branch 325 mg (65 mg iron) tablet ascorbic 0 Yes [id number] 500mg Take 1 U nivers acid, 7 tablet by ity of vitamin C, 00:00: mouth in [place] 500 mg 00 the Medical tablet morning. Branch Take with iron. ferrous Yes [id number] 325mg Take 1 Un betsy sulfate 01-19 tablet by ity of (IRON, 00:00: mouth in [place] FERROUS 00 the Medical SULFATE,) morning. Branch 325 mg (65 mg iron) tablet ascorbic Yes [id number] 500mg Take 1 U nivers acid, 7 tablet by ity of vitamin C, 00:00: mouth in [place] 500 mg 00 the Medical tablet morning. Branch Take with iron. ferrous 2021- No [id number] 325mg Take 1 U nivers sulfate 01-19 tablet by ity of (IRON, 00:00: 00:00 mouth in [place] FERROUS 00 :00 the Medical SULFATE,) morning. Branch 325 mg (65 mg iron) tablet ascorbic 2021- No [id number] 500mg Take 1 Univers acid, 01-19 tablet by ity of vitamin C, 00:00: 00:00 mouth [place] 500 mg 00 :00 the Medical tablet morning. Branch Take with iron. ferrous 2021- No [id number] 325mg Take 1 U nivers sulfate 01-19 tablet by ity of (IRON, 00:00: 00:00 mouth in [place] FERROUS 00 :00 the Medical SULFATE,) morning. Branch 325 mg (65 mg iron) tablet ascorbic 2021- No [id number] 500mg Take 1 Univers acid, 01-19 tablet by ity of vitamin C, 00:00: 00:00 mouth [place] 500 mg 00 :00 the Medical tablet morning. Branch Take with iron. Nitrofurant 2021- No [id number] 100mg Take 1 Univers oin&Nit. 01-03 capsule by ity of Macrocryst 00:00: 04:59 mouth in [place] 100 mg 00 :00 the Medical capsule morning Branch and 1 capsule in the evening. Do all this for 7 days. Nitrofurant 2021- No [id number] 100mg Take 1 Univers oin&Nit. 7-15 07-23 capsule by ity of Macrocryst 00:00: 04:59 mouth in [place] 100 mg 00 :00 the Medical capsule morning Branch and 1 capsule in the evening. Do all this for 7 days. terconazole 2021- No [id number] 1{appli Insert 1 Univers 0.8 % 11-19 cator} Applicator ity o f vaginal 00:00: 04:59 into [place] cream 00 :00 vagina at Medical bedtime Branch for 3 days. famotidine 2021-0 Yes [id number] 40mg Take 1 Univers 40 mg 4-07 tablet by ity of tablet 00:00: mouth [place] 00 daily. Medical Take about Branch 30 minutes prior to eating in the AM with water. Omeprazole 2021-0 Yes [id number] 20mg Take 1 Univers 20 mg 4-07 tablet by ity of tablet 00:00: mouth with [place] 00 evening Medical meal. Take Branch in evening with water about 30 minutes prior to dinner. famotidine 2021-0 Yes [id number] 40mg Take 1 Univers 40 mg 4-07 tablet by ity of tablet 00:00: mouth [place] 00 daily. Medical Take about Branch 30 minutes prior to eating in the AM with water. Omeprazole 2021-0 Yes [id number] 20mg Take 1 Univers 20 mg 4-07 tablet by ity of tablet 00:00: mouth with [place] 00 evening Medical meal. Take Branch in evening with water about 30 minutes prior to dinner. famotidine 2021-0 Yes [id number] 40mg Take 1 Univers 40 mg 4-07 tablet by ity of tablet 00:00: mouth [place] 00 daily. Medical Take about Branch 30 minutes prior to eating in the AM with water. Omeprazole 2021-0 Yes [id number] 20mg Take 1 [facility] 20 mg 4-07 tablet by [facility] tablet 00:00: mouth with [place] 00 evening Medical meal. Take Branch in evening with water about 30 minutes prior to dinner. famotidine 2021-0 Yes [id number] 40mg Take 1 [facility] 40 mg 4-07 tablet by [facility] of tablet 00:00: mouth [place] 00 daily. Medical Take about Branch 30 minutes prior to eating in the AM with water. Omeprazole 2021-0 Yes [id number] 20mg Take 1 [facility] 20 mg 4-07 tablet by [facility] of tablet 00:00: mouth with [place] 00 evening Medical meal. Take Branch in evening with water about 30 minutes prior to dinner. famotidine 2022-0 Yes [id number] 40mg Take 1 [facility] 40 mg 4-07 tablet by [facility] of tablet 00:00: mouth [place] 00 daily. Medical Take about Branch 30 minutes prior to eating in the AM with water. Omeprazole 2022-0 Yes [id number] 20mg Take 1 [facility] 20 mg 4-07 tablet by [facility] of tablet 00:00: mouth with 00 evening Medical meal. Take Branch in evening with water about 30 minutes prior to dinner. famotidine 2022-0 Yes [id number] 40mg Take 1 [facility] 40 mg 4-07 tablet by [facility] of tablet 00:00: mouth [place] 00 daily. Medical Take about Branch 30 minutes prior to eating in the AM with water. Omeprazole 2022-0 Yes [id number] 20mg Take 1 [facility] 20 mg 4-07 tablet by [facility] of tablet 00:00: mouth with 00 evening Medical meal. Take Branch in evening with water about 30 minutes prior to dinner. famotidine 2022-0 Yes [id number] 40mg Take 1 [facility] 40 mg 4-07 tablet by [facility] of tablet 00:00: mouth 00 daily. Medical Take about Branch 30 minutes prior to eating in the AM with water. Omeprazole 2022-0 Yes [id number] 20mg Take 1 [facility] 20 mg 4-07 tablet by [facility] of tablet 00:00: mouth with [place] 00 evening Medical meal. Take Branch in evening with water about 30 minutes prior to dinner. famotidine 2022-0 Yes [id number] 40mg Take 1 [facility] 40 mg 4-07 tablet by [facility]y of tablet 00:00: mouth [place] 00 daily. Medical Take about Branch 30 minutes prior to eating in the AM with water. Omeprazole 2022-0 Yes [id number] 20mg Take 1 [facility] 20 mg 4-07 tablet by [facility] of tablet 00:00: mouth with [place] 00 evening Medical meal. Take Branch in evening with water about 30 minutes prior to dinner. famotidine 2022-0 Yes [id number] 40mg Take 1 [facility] 40 mg 4-07 tablet by [facility] of tablet 00:00: mouth [place] 00 daily. Medical Take about Branch 30 minutes prior to eating in the AM with water. Omeprazole 2022-0 Yes [id number] 20mg Take 1 [facility] 20 mg 4-07 tablet by [facility] of tablet 00:00: mouth with [place] 00 evening Medical meal. Take Branch in evening with water about 30 minutes prior to dinner. famotidine 2022-0 Yes [id number] 40mg Take 1 [facility] 40 mg 4-07 tablet by [facility] of tablet 00:00: mouth [place] 00 daily. Medical Take about Branch 30 minutes prior to eating in the AM with water. Omeprazole 2-0 Yes [id number] 20mg Take 1 [facility] 20 mg 4-07 tablet by [facility] of tablet 00:00: mouth with [place] 00 evening Medical meal. Take Branch in evening with water about 30 minutes prior to dinner. famotidine 2-0 Yes [id number] 40mg Take 1 [facility] 40 mg 4-07 tablet by [facility] of tablet 00:00: mouth [place] 00 daily. Medical Take about Branch 30 minutes prior to eating in the AM with water. Omeprazole 2021-0 Yes [id number] 20mg Take 1 [facility] 20 mg 4-07 tablet by [facility] of tablet 00:00: mouth with [place] 00 evening Medical meal. Take Branch in evening with water about 30 minutes prior to dinner. famotidine 2-0 Yes [id number] 40mg Take 1 [facility] 40 mg 4-07 tablet by [facility] of tablet 00:00: mouth [place] 00 daily. Medical Take about Branch 30 minutes prior to eating in the AM with water. Omeprazole 2021-0 Yes [id number] 20mg Take 1 [facility] 20 mg 4-07 tablet by [facility] of tablet 00:00: mouth with [place] 00 evening Medical meal. Take Branch in evening with water about 30 minutes prior to dinner. famotidine 2022-0 2022- No [id number] 40mg Take 1 [facility] 40 mg 4-07 06-22 tablet by [facility] of tablet 00:00: 00:00 mouth [place] 00 :00 daily. Medical Take about Branch 30 minutes prior to eating in the AM with water. Omeprazole 2022-0 2022- No [id number] 20mg Take 1 [facility] 20 mg 4-07 06-22 tablet by [facility] tablet 00:00: 00:00 mouth [place] :00 evening Medical meal. Take Branch in evening with water about 30 minutes prior to dinner. doxylamine- 2-0 Yes [id number] 1{tbl} Take 1 [facility] pyridoxine, 3-24 tablet by ity of vit B6, 00:00: mouth [place] (DICLEGIS) 00 every 6 Medica l 10-10 mg (six) Branch per tablet hours as needed for Nausea and Vomiting (N/V). ondansetron 2-0 Yes [id number] 4mg Take 1 [facility] (ZOFRAN) 4 3-24 tablet by ity of mg tablet 00:00: mouth [place] 00 every 8 Medical (eight) Branch hours as needed for Nausea and Vomiting (N/V). doxylamine- 2022-0 Yes [id number] 1{tbl} Take 1 [facility] pyridoxine, 3-24 tablet by ity of vit B6, 00:00: mouth [place] ([place]) 00 every 6 Medica l 10-10 mg (six) Branch per tablet hours as needed for Nausea and Vomiting (N/V). ondansetron 2021-0 Yes [id number] 4mg Take 1 [facility] (ZOFRAN) 4 3-24 tablet by ity of mg tablet 00:00: mouth [place] 00 every 8 Medical (eight) Branch hours as needed for Nausea and Vomiting (N/V). doxylamine- 2-0 Yes [id number] 1{tbl} Take 1 [facility] pyridoxine, 3-24 tablet by ity of vit B6, 00:00: mouth [place] ([place]) 00 every 6 Medica l 10-10 mg (six) Branch per tablet hours as needed for Nausea and Vomiting (N/V). ondansetron 2-0 Yes [id number] 4mg Take 1 [facility] (ZOFRAN) 4 3-24 tablet by ity of mg tablet 00:00: mouth [place] 00 every 8 Medical (eight) Branch hours as needed for Nausea and Vomiting (N/V). doxylamine- 2022-0 Yes [id number] 1{tbl} Take 1 [facility] pyridoxine, 3-24 tablet by ity of vit B6, 00:00: mouth [place] ([place]) 00 every 6 Medica l 10-10 mg (six) Branch per tablet hours as needed for Nausea and Vomiting (N/V). ondansetron 2-0 Yes [id number] 4mg Take 1 [facility] (ZOFRAN) 4 3-24 tablet by ity of mg tablet 00:00: mouth [place] 00 every 8 Medical (eight) Branch hours as needed for Nausea and Vomiting (N/V). doxylamine- 2-0 Yes [id number] 1{tbl} Take 1 [facility] pyridoxine, 3-24 tablet by ity of vit B6, 00:00: mouth [place] ([place]) 00 every 6 Medica l 10-10 mg (six) Branch per tablet hours as needed for Nausea and Vomiting (N/V). ondansetron 2021-0 Yes [id number] 4mg Take 1 [facility] (ZOFRAN) 4 3-24 tablet by ity of mg tablet 00:00: mouth [place] 00 every 8 Medical (eight) Branch hours as needed for Nausea and Vomiting (N/V). doxylamine- 2021-0 Yes [id number] 1{tbl} Take 1 [facility] pyridoxine, 3-24 tablet by ity of vit B6, 00:00: mouth [place] ([place]) 00 every 6 Medica l 10-10 mg (six) Branch per tablet hours as needed for Nausea and Vomiting (N/V). ondansetron 2021-0 Yes [id number] 4mg Take 1 [facility] (ZOFRAN) 4 3-24 tablet by ity of mg tablet 00:00: mouth [place] 00 every 8 Medical (eight) Branch hours as needed for Nausea and Vomiting (N/V). doxylamine- 2-0 Yes [id number] 1{tbl} Take 1 [facility] pyridoxine, 3-24 tablet by ity of vit B6, 00:00: mouth [place] ([place]) 00 every 6 Medica l 10-10 mg (six) Branch per tablet hours as needed for Nausea and Vomiting (N/V). ondansetron 2-0 Yes [id number] 4mg Take 1 [facility] (ZOFRAN) 4 3-24 tablet by ity of mg tablet 00:00: mouth [place] 00 every 8 Medical (eight) Branch hours as needed for Nausea and Vomiting (N/V). doxylamine- 2-0 Yes [id number] 1{tbl} Take 1 [facility] pyridoxine, 3-24 tablet by ity of vit B6, 00:00: mouth [place] ([place]) 00 every 6 Medica l 10-10 mg (six) Branch per tablet hours as needed for Nausea and Vomiting (N/V). ondansetron 2022-0 Yes [id number] 4mg Take 1 [facility] (ZOFRAN) 4 3-24 tablet by it[facility] of mg tablet 00:00: mouth [place] 00 every 8 Medical (eight) Branch hours as needed for Nausea and Vomiting (N/V). doxylamine- 2022-0 Yes [id number] 1{tbl} Take 1 [facility] pyridoxine, 3-24 tablet by ity of vit B6, 00:00: mouth [place] ([place]) 00 every 6 Medica l 10-10 mg (six) Branch per tablet hours as needed for Nausea and Vomiting (N/V). ondansetron 2022-0 Yes [id number] 4mg Take 1 [facility] (ZOFRAN) 4 3-24 tablet by it[facility] of mg tablet 00:00: mouth [place] 00 every 8 Medical (eight) Branch hours as needed for Nausea and Vomiting (N/V). doxylamine- 2022-0 Yes [id number] 1{tbl} Take 1 [facility] pyridoxine, 3-24 tablet by ity of vit B6, 00:00: mouth [place] ([place]) 00 every 6 Medica l 10-10 mg (six) Branch per tablet hours as needed for Nausea and Vomiting (N/V). ondansetron 2-0 Yes [id number] 4mg Take 1 [facility] (ZOFRAN) 4 3-24 tablet by it[facility] of mg tablet 00:00: mouth [place] 00 every 8 Medical (eight) Branch hours as needed for Nausea and Vomiting (N/V). doxylamine- 2022-0 Yes [id number] 1{tbl} Take 1 [facility] pyridoxine, 3-24 tablet by ity of vit B6, 00:00: mouth [place] ([place]) 00 every 6 Medica l 10-10 mg (six) Branch per tablet hours as needed for Nausea and Vomiting (N/V). ondansetron 2022-0 Yes [id number] 4mg Take 1 [facility] (ZOFRAN) 4 3-24 tablet by ity of mg tablet 00:00: mouth [place] 00 every 8 Medical (eight) Branch hours as needed for Nausea and Vomiting (N/V). doxylamine- 2022-0 Yes [id number] 1{tbl} Take 1 [facility] pyridoxine, 3-24 tablet by ity of vit B6, 00:00: mouth [place] ([place]) 00 every 6 Medica l 10-10 mg (six) Branch per tablet hours as needed for Nausea and Vomiting (N/V). ondansetron 2021-0 Yes [id number] 4mg Take 1 [facility] (ZOFRAN) 4 3-24 tablet by ity of mg tablet 00:00: mouth [place] 00 every 8 Medical (eight) Branch hours as needed for Nausea and Vomiting (N/V). doxylamine- 2021-0 Yes [id number] 1{tbl} Take 1 [facility] pyridoxine, 3-24 tablet by ity of vit B6, 00:00: mouth [place] ([place]) 00 every 6 Medica l 10-10 mg (six) Branch per tablet hours as needed for Nausea and Vomiting (N/V). ondansetron 2021-0 Yes [id number] 4mg Take 1 [facility] (ZOFRAN) 4 3-24 tablet by it[facility] of mg tablet 00:00: mouth [place] 00 every 8 Medical (eight) Branch hours as needed for Nausea and Vomiting (N/V). doxylamine- 2021-0 Yes [id number] 1{tbl} Take 1 [facility] pyridoxine, 3-24 tablet by ity of vit B6, 00:00: mouth [place] ([place]) 00 every 6 Medica l 10-10 mg (six) Branch per tablet hours as needed for Nausea and Vomiting (N/V). ondansetron 2021-0 Yes [id number] 4mg Take 1 [facility] (ZOFRAN) 4 3-24 tablet by ity of mg tablet 00:00: mouth [place] 00 every 8 Medical (eight) Branch hours as needed for Nausea and Vomiting (N/V). doxylamine- 2-0 Yes [id number] 1{tbl} Take 1 [facility] pyridoxine, 3-24 tablet by ity of vit B6, 00:00: mouth [place] ([place]) 00 every 6 Medica l 10-10 mg (six) Branch per tablet hours as needed for Nausea and Vomiting (N/V). ondansetron 2021-0 Yes [id number] 4mg Take 1 [facility] (ZOFRAN) 4 3-24 tablet by ity of mg tablet 00:00: mouth [place] 00 every 8 Medical (eight) Branch hours as needed for Nausea and Vomiting (N/V). doxylamine- 2021-0 Yes [id number] 1{tbl} Take 1 [facility] pyridoxine, 3-24 tablet by ity of vit B6, 00:00: mouth [place] ([place]) 00 every 6 Medica l 10-10 mg (six) Branch per tablet hours as needed for Nausea and Vomiting (N/V). doxylamine- 0 Yes [id number] 1{tbl} Take 1 [facility] pyridoxine, 3-24 tablet by ity of vit B6, 00:00: mouth [place] ([place]) 00 every 6 Medica l 10-10 mg (six) Branch per tablet hours as needed for Nausea and Vomiting (N/V). doxylamine- 0 Yes [id number] 1{tbl} Take 1 [facility] pyridoxine, 3-24 tablet by ity of vit B6, 00:00: mouth [place] ([place]) 00 every 6 Medica l 10-10 mg (six) Branch per tablet hours as needed for Nausea and Vomiting (N/V). doxylamine- 0 Yes [id number] 1{tbl} Take 1 [facility] pyridoxine, 3-24 tablet by ity of vit B6, 00:00: mouth [place] ([place]) 00 every 6 Medica l 10-10 mg (six) Branch per tablet hours as needed for Nausea and Vomiting (N/V). doxylamine- 2021-0 Yes [id number] 1{tbl} Take 1 [facility] pyridoxine, 3-24 tablet by ity of vit B6, 00:00: mouth [place] ([place]) 00 every 6 Medica l 10-10 mg (six) Branch per tablet hours as needed for Nausea and Vomiting (N/V). doxylamine- 2021-0 Yes [id number] 1{tbl} Take 1 [facility] pyridoxine, 3-24 tablet by ity of vit B6, 00:00: mouth [place] ([place]) 00 every 6 Medica l 10-10 mg (six) Branch per tablet hours as needed for Nausea and Vomiting (N/V). doxylamine- 2022-0 Yes [id number] 1{tbl} Take 1 [facility] pyridoxine, 3-24 tablet by ity of vit B6, 00:00: mouth [place] ([place]) 00 every 6 Medica l 10-10 mg (six) Branch per tablet hours as needed for Nausea and Vomiting (N/V). doxylamine- Yes [id number] 1{tbl} Take 1 [facility] pyridoxine, 3-24 tablet by ity of vit B6, 00:00: mouth [place] ([place]) 00 every 6 Medica l 10-10 mg (six) Branch per tablet hours as needed for Nausea and Vomiting (N/V). doxylamine- Yes [id number] 1{tbl} Take 1 [facility] pyridoxine, 3-24 tablet by ity of vit B6, 00:00: mouth [place] ([place]) 00 every 6 Medica l 10-10 mg (six) Branch per tablet hours as needed for Nausea and Vomiting (N/V). doxylamine- Yes [id number] 1{tbl} Take 1 [facility] pyridoxine, 3-24 tablet by ity of vit B6, 00:00: mouth [place] ([place]) 00 every 6 Medica l 10-10 mg (six) Branch per tablet hours as needed for Nausea and Vomiting (N/V). doxylamine- Yes [id number] 1{tbl} Take 1 [facility] pyridoxine, 3-24 tablet by ity of vit B6, 00:00: mouth [place] ([place]) 00 every 6 Medica l 10-10 mg (six) Branch per tablet hours as needed for Nausea and Vomiting (N/V). doxylamine- 2021- No [id number] 1{tbl} Take 1 [facility] pyridoxine, 3-24 - tablet by it y of vit B6, 00:00: 00:00 mouth [place] ([place]) 00 :00 every 6 Medica l 10-10 mg (six) Branch per tablet hours as needed for Nausea and Vomiting (N/V). doxylamine- 2021- No [id number] 1{tbl} Take 1 [facility] pyridoxine, 3-24 - tablet by it y of vit B6, 00:00: 00:00 mouth [place] ([place]) 00 :00 every 6 Medica l 10-10 mg (six) Branch per tablet hours as needed for Nausea and Vomiting (N/V). ondansetron 2022-0 2- No [id number] 4mg Take 1 [facility] (ZOFRAN) 4 3-24 06-22 tablet by ity of mg tablet 00:00: 00:00 mouth [place] 00 :00 every 8 Medical (eight) Branch hours as needed for Nausea and Vomiting (N/V). ondansetron 2022-0 Yes DISSOLVE 1 [facility] 4 [...] EVERY 12 Branch HOURS NEEDED. ondansetron 2-0 2- No DISSOLVE 1 [facility] 4 mg 3-04 09-01 TABLET ity of disintegrat 00:00: 00:00 UNDER THE [place] ing tablet 00 :00 TONGUE Medical EVERY 12 Branch HOURS NEEDED. ondansetron 2-0 2022- No DISSOLVE 1 [facility] 4 mg 3-04 09-01 TABLET ity of disintegrat 00:00: 00:00 UNDER THE [place] ing tablet 00 :00 TONGUE Medical EVERY 12 Branch HOURS NEEDED. pyridoxine, 2021-0 Yes [id number] 25mg Take 1 [facility] VITAMIN 2-21 tablet by ity of B-6, 25 mg 00:00: mouth 3 [place] tablet 00 (three) Medical times Branch daily. doxylamine 2-0 Yes [id number] 25mg Take 1 [facility] 25 mg 2-21 tablet by it[facility] of tablet 00:00: mouth at [place] 00 bedtime. Medical Branch pyridoxine, 2-0 Yes [id number] 25mg Take 1 [facility] VITAMIN 2-21 tablet by ity of B-6, 25 mg 00:00: mouth 3 [place] tablet 00 (three) Medical times Branch daily. doxylamine Yes [id number] 25mg Take 1 [facility] 25 mg 2-21 tablet by ity of tablet 00:00: mouth at [place] 00 bedtime. Medical Branch pyridoxine, Yes [id number] 25mg Take 1 [facility] VITAMIN 2-21 tablet by ity of B-6, 25 mg 00:00: mouth 3 [place] tablet 00 (three) Medical times Branch daily. doxylamine Yes [id number] 25mg Take 1 [facility] 25 mg 2-21 tablet by ity of tablet 00:00: mouth at [place] 00 bedtime. Medical Branch pyridoxine, Yes [id number] 25mg Take 1 [facility] VITAMIN 2-21 tablet by ity of B-6, 25 mg 00:00: mouth 3 [place] tablet 00 (three) Medical times Branch daily. doxylamine Yes [id number] 25mg Take 1 [facility] 25 mg 2-21 tablet by ity of tablet 00:00: mouth at [place] 00 bedtime. Medical Branch pyridoxine, Yes [id number] 25mg Take 1 [facility] VITAMIN 2-21 tablet by ity of B-6, 25 mg 00:00: mouth 3 [place] tablet 00 (three) Medical times [place] daily. doxylamine Yes [id number] 25mg Take 1 [facility] 25 mg 2-21 tablet by ity of tablet 00:00: mouth at [place] 00 bedtime. Medical Branch pyridoxine, 2021- No [id number] 25mg Take 1 [facility] VITAMIN 2-21 04-21 tablet by ity of B-6, 25 mg 00:00: 00:00 mouth 3 [place] tablet 00 :00 (three) Medical times [place] daily. doxylamine 2021- No [id number] 25mg Take 1 [facility] 25 mg 2-21 04-21 tablet by [facility] of tablet 00:00: 00:00 mouth at [place] 00 :00 bedtime. Medical Branch azithromyci 2021- No [id number] 1000mg Take 2 [facility] n 500 mg 2-10 02-11 tablets by [facility] tablet 00:00: 05:59 mouth [place] 00 :00 now for 1 Medical dose. Branch 0 Yes [id number] 1{tbl} Take 1 [facility] 25-iron-fol 2-09 tablet by ity of ate 6-dha 00:00: mouth [place] 30 mg 00 daily. Medical iron-1mg Branch -200 mg Cap 0 Yes [id number] 1{tbl} Take 1 [facility] 25-iron-fol 2-09 tablet by ity of ate 6-dha 00:00: mouth [place] 30 mg 00 daily. Medical iron-1mg Branch -200 mg Cap 0 Yes [id number] 1{tbl} Take 1 [facility] 25-iron-fol 2-09 tablet by ity of ate 6-dha 00:00: mouth [place] 30 mg 00 daily. Medical iron-1mg Branch -200 mg Cap 0 Yes [id number] 1{tbl} Take 1 [facility] 25-iron-fol 2-09 tablet by ity of ate 6-dha 00:00: mouth [place] 30 mg 00 daily. Medical iron-1mg Branch -200 mg Cap 0 Yes [id number] 1{tbl} Take 1 [facility] 25-iron-fol 2-09 tablet by ity of ate 6-dha 00:00: mouth [place] 30 mg 00 daily. Medical iron-1mg Branch -200 mg Cap 0 Yes [id number] 1{tbl} Take 1 [facility] 25-iron-fol 2-09 tablet by ity of ate 6-dha 00:00: mouth [place] 30 mg 00 daily. Medical iron-1mg Branch -200 mg Cap 2021-0 Yes [id number] 1{tbl} Take 1 [facility] 25-iron-fol 2-09 tablet by ity of ate 6-dha 00:00: mouth [place] 30 mg 00 daily. Medical iron-1mg Branch -200 mg Cap 2021-0 Yes [id number] 1{tbl} Take 1 [facility] 25-iron-fol 2-09 tablet by ity of ate 6-dha 00:00: mouth [place] 30 mg 00 daily. Medical iron-1mg Branch -200 mg Cap 2021-0 Yes [id number] 1{tbl} Take 1 [facility] 25-iron-fol 2-09 tablet by ity of ate 6-dha 00:00: mouth [place] 30 mg 00 daily. Medical iron-1mg Branch -200 mg Cap 2021-0 Yes [id number] 1{tbl} Take 1 [facility] 25-iron-fol 2-09 tablet by ity of ate 6-dha 00:00: mouth [place] 30 mg 00 daily. Medical iron-1mg Branch -200 mg Cap 2021-0 Yes [id number] 1{tbl} Take 1 [facility] 25-iron-fol 2-09 tablet by ity of ate 6-dha 00:00: mouth [place] 30 mg 00 daily. Medical iron-1mg Branch -200 mg Cap 2021-0 Yes [id number] 1{tbl} Take 1 [facility] 25-iron-fol 2-09 tablet by ity of ate 6-dha 00:00: mouth [place] 30 mg 00 daily. Medical iron-1mg Branch -200 mg Cap 2021-0 Yes [id number] 1{tbl} Take 1 [facility] 25-iron-fol 2-09 tablet by ity of ate 6-dha 00:00: mouth [place] 30 mg 00 daily. Medical iron-1mg Branch -200 mg Cap 2021-0 Yes [id number] 1{tbl} Take 1 [facility] 25-iron-fol 2-09 tablet by ity of ate 6-dha 00:00: mouth [place] 30 mg 00 daily. Medical iron-1mg Branch -200 mg Cap 2021-0 Yes [id number] 1{tbl} Take 1 [facility] 25-iron-fol 2-09 tablet by ity of ate 6-dha 00:00: mouth [place] 30 mg 00 daily. Medical iron-1mg Branch -200 mg Cap 2021-0 Yes [id number] 1{tbl} Take 1 [facility] n[facility] 25-iron-fol 2-09 tablet by ity of ate 6-dha 00:00: mouth [place] 30 mg 00 daily. Medical iron-1mg Branch -200 mg Cap 2021-0 Yes [id number] 1{tbl} Take 1 [facility] n[facility] 25-iron-fol 2-09 tablet by ity of ate 6-dha 00:00: mouth [place] 30 mg 00 daily. Medical iron-1mg Branch -200 mg Cap 2021-0 Yes [id number] 1{tbl} Take 1 [facility] 25-iron-fol 2-09 tablet by ity of ate 6-dha 00:00: mouth [place] 30 mg 00 daily. Medical iron-1mg Branch -200 mg Cap 2021-0 Yes [id number] 1{tbl} Take 1 [facility] 25-iron-fol 2-09 tablet by ity of ate 6-dha 00:00: mouth [place] 30 mg 00 daily. Medical iron-1mg Branch -200 mg Cap 2021-0 Yes [id number] 1{tbl} Take 1 [facility] 25-iron-fol 2-09 tablet by ity of ate 6-dha 00:00: mouth [place] 30 mg 00 daily. Medical iron-1mg Branch -200 mg Cap 2021-0 Yes [id number] 1{tbl} Take 1 [facility] 25-iron-fol 2-09 tablet by ity of ate 6-dha 00:00: mouth [place] 30 mg 00 daily. Medical iron-1mg Branch -200 mg Cap 2021-0 Yes [id number] 1{tbl} Take 1 [facility] 25-iron-fol 2-09 tablet by ity of ate 6-dha 00:00: mouth [place] 30 mg 00 daily. Medical iron-1mg Branch -200 mg Cap 2021-0 Yes [id number] 1{tbl} Take 1 [facility] 25-iron-fol 2-09 tablet by ity of ate 6-dha 00:00: mouth [place] 30 mg 00 daily. Medical iron-1mg Branch -200 mg Cap 2021-0 Yes [id number] 1{tbl} Take 1 [facility] 25-iron-fol 2-09 tablet by ity of ate 6-dha 00:00: mouth [place] 30 mg 00 daily. Medical iron-1mg Branch -200 mg Cap 2021-0 Yes [id number] 1{tbl} Take 1 [facility] n[facility] 25-iron-fol 2-09 tablet by ity of ate 6-dha 00:00: mouth [place] 30 mg 00 daily. Medical iron-1mg Branch -200 mg Cap 2021-0 Yes [id number] 1{tbl} Take 1 [facility] 25-iron-fol 2-09 tablet by ity of ate 6-dha 00:00: mouth [place] 30 mg 00 daily. Medical iron-1mg Branch -200 mg Cap 2021-0 Yes [id number] 1{tbl} Take 1 [facility] n[facility] 25-iron-fol 2-09 tablet by ity of ate 6-dha 00:00: mouth [place] 30 mg 00 daily. Medical iron-1mg Branch -200 mg Cap 2021-0 Yes [id number] 1{tbl} Take 1 U n[facility] 25-iron-fol 2-09 tablet by ity of ate 6-dha 00:00: mouth [place] 30 mg 00 daily. Medical iron-1mg Branch -200 mg Cap 2021-0 Yes [id number] 1{tbl} Take 1 [facility] n[facility] 25-iron-fol 2-09 tablet by ity of ate 6-dha 00:00: mouth [place] 30 mg 00 daily. Medical iron-1mg Branch -200 mg Cap 2021-0 Yes [id number] 1{tbl} Take 1 [facility] n[facility] 25-iron-fol 2-09 tablet by ity of ate 6-dha 00:00: mouth [place] 30 mg 00 daily. Medical iron-1mg Branch -200 mg Cap 2021-0 Yes [id number] 1{tbl} Take 1 U nivers 25-iron-fol 2-09 tablet by ity of ate 6-dha 00:00: mouth [place] 30 mg 00 daily. Medical iron-1mg Branch -200 mg Cap 0 Yes [id number] 1{tbl} Take 1 [facility] n[facility] 25-iron-fol 2-09 tablet by ity of ate 6-dha 00:00: mouth [place] 30 mg 00 daily. Medical iron-1mg Branch -200 mg Cap 2021-0 Yes [id number] 1{tbl} Take 1 [facility] n[facility] 25-iron-fol 2-09 tablet by ity of ate 6-dha 00:00: mouth [place] 30 mg 00 daily. Medical iron-1mg Branch -200 mg Cap 2021-0 Yes [id number] 1{tbl} Take 1 U n[facility] 25-iron-fol 2-09 tablet by ity of ate 6-dha 00:00: mouth [place] 30 mg 00 daily. Medical iron-1mg Branch -200 mg Cap 2021-0 Yes [id number] 1{tbl} Take 1 U n[facility] 25-iron-fol 2-09 tablet by ity of ate 00:00: mouth [place] 30 mg 00 daily. Medical iron-1mg Branch -200 mg Cap Yes [id number] 1{tbl} Take 1 U nivers 25-iron-fol 2-09 tablet by ity of ate 00:00: mouth [place] 30 mg 00 daily. Medical iron-1mg Branch -200 mg Cap Yes [id number] 1{tbl} Take 1 U nivers 25-iron-fol 2-09 tablet by ity of ate 00:00: mouth [place] 30 mg 00 daily. Medical iron-1mg Branch -200 mg Cap Yes [id number] 1{tbl} Take 1 U [facility] 25-iron-fol 2-09 tablet by ity of ate 00:00: mouth [place] 30 mg 00 daily. Medical iron-1mg Branch -200 mg Cap 2021- No [id number] 1{tbl} Take 1 [facility] 25-iron-fol 2-09 10-07 tablet by it y of ate 00:00: 00:00 mouth [place] 30 mg 00 :00 daily. Medical iron-1mg Branch -200 mg Cap 2021- No [id number] 1{tbl} Take 1 [facility] 25-iron-fol 2-09 10-07 tablet by it y of ate 00:00: 00:00 mouth [place] 30 mg 00 :00 daily. Medical iron-1mg Branch -200 mg Cap Omeprazole Omeprazole No 1{capsu QD Omeprazole 40 MG 40 MG 2-11 le} 40 MG 00:00: 00 Omeprazole Omeprazole No 1{capsu QD Omeprazole Common 40 MG 40 MG 2-11 le} 40 MG [facility]: [facility] Omeprazole Omeprazole No 1{capsu QD Omeprazole 40 MG 40 MG 2-11 le} 40 MG 00:00: 00 Omeprazole Omeprazole No 1{capsu QD Omeprazole 40 MG 40 MG 2-11 le} 40 MG 00:00: 00 Famotidine Famotidine 2019-06 No 1{table BID Famotidine Common 40 MG 40 MG 2-11 t_as_ne 40 MG [facility] 00:00: eded} - [facility] Augmentin Augmentin 0 2019- No Isamar 1 tablet Common 11-26-17 [facility] 00:00: 00:00 - [facility] :00 [facility] Xopenex HFA Xopenex HFA No 1{puff_ Xopenex 45 MCG/ACT 45 MCG/ACT as_need HFA 45 ed} MCG/ACT Famotidine Famotidine No 1{table BID Famotidine 40 MG 40 MG t_as_ne 40 MG eded} Flovent HFA Flovent HFA No 1{puff} BID Flovent 110 MCG/ACT 110 MCG/ACT HFA 110 MCG/ACT Xopenex HFA Xopenex HFA Yes Isamar 1 puff as Common Millender needed [facility] Vitamin D3 Vitamin D3 Yes Isamar 1 tablet Common [facility] Vitamin D3 Vitamin D3 No 1{table Vitamin [...] HFA 45 Spirit ed} MCG/ACT - [facility] Flovent HFA Flovent HFA No 1{puff} BID Flovent Common 110 MCG/ACT 110 MCG/ACT HFA 110 [facility] MCG/ACT - [facility] Azelastine Azelastine No 1{puff_ QID Azelastine Common HCl 137 HCl 137 in_each HCl 137 Spi rit MCG/SPRAY MCG/SPRAY _nostri MCG/SPRAY - [facility] l} [facility] Vitamin D3 Vitamin D3 No 1{table Vitamin D3 Common 5000 UNIT 5000 UNIT t} 5000 UNIT [facility] [facility] Xopenex HFA Xopenex HFA No 1{puff_ Xopenex [...] as_need HFA 45 Spirit ed} MCG/ACT - [facility] Famotidine Famotidine No 1{table BID Famotidine Common 40 MG 40 MG t_as_ne 40 MG Spirit eded} [facility] Azelastine Azelastine No 1{puff_ QID Azelastine Common HCl 137 HCl 137 in_each HCl 137 Spi rit MCG/SPRAY MCG/SPRAY _nostri MCG/SPRAY - [facility] l} [facility] Flovent HFA Flovent HFA No 1{puff} BID Flovent Common 110 MCG/ACT 110 MCG/ACT HFA 110 Spirit MCG/ACT - [facility] Vitamin D3 Vitamin D3 No 1{table Vitamin D3 Common 5000 UNIT 5000 UNIT t} 5000 UNIT [facility] Vitamin D3 Vitamin D3 No 1{table Vitamin [...] Immunizations Ordered Filled Immunization Date Status Comments [facility] e Immunization Name Name Influenza Virus 2022-03-07 Completed Universit y of Vaccine 00:00:00 [facility] Influenza Virus 2022-03-07 Completed Universit y of Vaccine 00:00:00 [facility] Influenza Virus 2022-03-07 Completed Universit y of Vaccine 00:00:00 [facility] Influenza Virus 2022-03-07 Completed Universit y of Vaccine 00:00:00 [facility] Influenza Virus 2022-03-07 Completed Universit y of Vaccine 00:00:00 [facility] Influenza Virus 2022-03-07 Completed Universit y of Vaccine 00:00:00 [facility] Influenza Virus 2022-03-07 Completed Universit y of Vaccine 00:00:00 [facility] Influenza Virus 2022-03-07 Completed Universit y of Vaccine 00:00:00 [facility] Influenza Virus 2022-03-07 Completed Universit y of Vaccine 00:00:00 [facility] TDAP 2022-02-04 Completed University of 00:00:00 [facility] TDAP 2022-02-04 Completed University of 00:00:00 [facility] TDAP 2022-02-04 Completed University of 00:00:00 [facility] TDAP 2022-02-04 Completed University of 00:00:00 [facility] TDAP 2022-02-04 Completed University of 00:00:00 [facility] TDAP 2022-02-04 Completed University of 00:00:00 [facility] TDAP 2022-02-04 Completed University of 00:00:00 [facility] TDAP 2022-02-04 Completed University of 00:00:00 [facility] TDAP 2022-02-04 Completed University of 00:00:00 [facility] TDAP 2022-02-04 Completed University of 00:00:00 [facility] TDAP 2022-02-04 Completed University of 00:00:00 [facility] TDAP 2022-02-04 Completed University of 00:00:00 [facility] TDAP 2022-02-04 Completed University of 00:00:00 [facility] TDAP 2022-02-04 Completed University of 00:00:00 [facility] TDAP 2022-02-04 Completed University of 00:00:00 [facility] TDAP 2022-02-04 Completed University of 00:00:00 [facility] TDAP 2022-02-04 Completed University of 00:00:00 [facility] TDAP 2022-02-04 Completed University of 00:00:00 [facility] TDAP 2022-02-04 Completed University of 00:00:00 [facility] TDAP 2022-02-04 Completed University of 00:00:00 [facility] Afluria single dose Afluria single dose 2020-03-08 Completed [facility] - 15:15:00 [facility] Afluria single dose Afluria single dose 2020-03-08 Completed [facility] - 15:15:00 [facility] Afluria single dose Afluria single dose 2020-03-08 Completed [facility] - 15:15:00 [facility] Afluria single dose Afluria single dose 2020-03-08 Completed [facility] 15:15:00 [facility] Afluria single dose Afluria single dose 2020-03-08 Completed [facility] 15:15:00 [facility] Afluria single dose Afluria single dose 2020-03-08 Completed [facility] 15:15:00 [facility] Meningoccal MCV4 Meningoccal MCV4 2018-02-19 Completed [facility] - 16:38:00 [facility] Meningoccal MCV4 Meningoccal MCV4 2018-02-19 Completed [facility] - 16:38:00 [facility] Meningoccal MCV4 Meningoccal MCV4 2018-02-19 Completed [facility] - 16:38:00 [facility] Meningoccal MCV4 Meningoccal MCV4 2018-02-19 Completed [facility] - 16:38:00 [facility] Meningoccal MCV4 Meningoccal MCV4 2018-02-19 Completed [facility] - 16:38:00 [facility] Meningoccal MCV4 Meningoccal MCV4 2018-02-19 Completed [facility] - 00:00:00 [facility] Vital Signs Vital Name Observation Time Observation Value Comments Source Systolic blood 2022-05-22 16:28:00 95 mm[Hg] Univer [facility]ity of pressure [facility] Diastolic blood 2022-05-22 16:28:00 65 mm[Hg] Unive rsity of pressure [facility] Heart rate 2022-05-22 16:28:00 97 /min [facility] ty [facility] Body temperature 2022-05-22 16:28:00 36.61 Viktoriya Univ ersity of [facility] Respiratory rate 2022-05-22 16:28:00 18 /min Univ ersity of [facility] Body height 2022-05-22 16:28:00 170.2 cm [facility] Body weight 2022-05-22 16:28:00 66.679 kg [facility] BMI 2022-05-22 16:28:00 23.02 kg/m2 [facility] Systolic blood 2022-05-13 22:22:00 103 mm[Hg] Univer sity of pressure [facility] Diastolic blood 2022-05-13 22:22:00 73 mm[Hg] Unive rsity of pressure [facility] Heart rate 2022-05-13 22:22:00 98 /min [facility] Body temperature 2022-05-13 22:22:00 36.94 Viktoriya Univ ers[facility] of [facility] Respiratory rate 2022-05-13 22:22:00 18 /min Univ ersity of [facility] Body height 2022-05-13 22:22:00 170.2 cm [facility] Body weight 2022-05-13 22:22:00 65.318 kg [facility] BMI 2022-05-13 22:22:00 22.55 kg/m2 [facility] Systolic blood 2022-04-16 18:43:00 100 mm[Hg] Univer [facility]ity of pressure [facility] Diastolic blood 2022-04-16 18:43:00 67 mm[Hg] Unive rsity of pressure [facility] Heart rate 2022-04-16 18:43:00 92 /min [facility] Body temperature 2022-04-16 18:43:00 36.72 Viktoriya Univ [facility] Respiratory rate 2022-04-16 18:43:00 16 /min Univ ersity of [facility] Body weight 2022-04-16 18:43:00 64.139 kg [facility] Oxygen saturation in 2022-04-16 18:43:00 97 /min University of Arterial blood by [facility] Pulse oximetry Branch Systolic blood 2022-03-29 01:00:00 121 mm[Hg] Univer sity of pressure [facility] Diastolic blood 2022-03-29 01:00:00 70 mm[Hg] Unive rsity of pressure [facility] Heart rate 2022-03-29 01:00:00 83 /min [facility] Body temperature 2022-03-29 01:00:00 36.89 Viktoriya Univ [facility] Respiratory rate 2022-03-29 01:00:00 16 /min Univ ersity of [facility] Oxygen saturation in 2022-03-29 00:58:00 99 /min University of Arterial blood by [facility] Pulse oximetry Branch Body weight 2022-03-25 12:00:00 71 kg [facility] BMI 2022-03-25 12:00:00 24.52 kg/m2 [facility] Systolic blood 2022-03-18 20:47:00 104 mm[Hg] Univer sity of pressure [facility] Diastolic blood 2022-03-18 20:47:00 70 mm[Hg] Unive rsity of pressure [facility] Heart rate 2022-03-18 20:47:00 82 /min [facility] Body temperature 2022-03-18 20:47:00 36.72 Viktoriya Univ [facility] Respiratory rate 2022-03-18 20:47:00 18 /min Univ ersity [facility] Body height 2022-03-18 20:47:00 170.2 cm [facility] Body weight 2022-03-18 20:47:00 70.761 kg [facility] BMI 2022-03-18 20:47:00 24.43 kg/m2 [facility] Systolic blood 2022-03-11 21:08:00 108 mm[Hg] Univer [facility]ity of pressure [facility] Diastolic blood 2022-03-11 21:08:00 78 mm[Hg] Unive rsity of pressure [facility] Heart rate 2022-03-11 21:08:00 103 /min [facility] Body temperature 2022-03-11 21:08:00 36.83 Viktoriya Univ [facility] Respiratory rate 2022-03-11 21:08:00 18 /min Univ ersity [facility] Body height 2022-03-11 21:08:00 170.2 cm [facility] Body weight 2022-03-11 21:08:00 68.947 kg [facility] BMI 2022-03-11 21:08:00 23.81 kg/m2 [facility] Systolic blood 2022-02-20 18:11:00 102 mm[Hg] Univer sity of pressure [facility] Diastolic blood 2022-02-20 18:11:00 68 mm[Hg] Unive rsity of pressure [facility] Heart rate 2022-02-20 18:11:00 92 /min [facility] [place] [facility] [place] Body temperature 2022-02-20 18:11:00 36.67 Viktoriya Univ [facility] Respiratory rate 2022-02-20 18:11:00 16 /min Univ ersity [facility] Body height 2022-02-20 18:11:00 170.2 cm [facility] Body weight 2022-02-20 18:11:00 68.266 kg [facility] BMI 2022-02-20 18:11:00 23.57 kg/m2 [facility] Oxygen saturation in 2022-02-20 18:11:00 98 /min University Arterial blood by [facility] Pulse oximetry Branch Systolic blood 2022-02-04 21:10:00 105 mm[Hg] Univer sity of pressure [facility] Diastolic blood 2022-02-04 21:10:00 73 mm[Hg] Unive rsity of pressure [facility] Heart rate 2022-02-04 21:10:00 73 /min [facility] Respiratory rate 2022-02-04 21:10:00 18 /min Univ ersity of [facility] Body height 2022-02-04 21:10:00 170.2 cm [facility] Body weight 2022-02-04 21:10:00 66.497 kg [facility] BMI 2022-02-04 21:10:00 22.96 kg/m2 [facility] Oxygen saturation in 2022-02-04 21:10:00 98 /min University of Arterial blood by [facility] Pulse oximetry Branch Systolic blood 2022-01-20 21:05:00 105 mm[Hg] Univer sity of pressure [facility] Diastolic blood 2022-01-20 21:05:00 69 mm[Hg] Unive rsity of pressure [facility] Heart rate 2022-01-20 21:05:00 96 /min [facility] Respiratory rate 2022-01-20 21:05:00 18 /min Univ ersity of [facility] Body height 2022-01-20 21:05:00 170.2 cm [facility] Body weight 2022-01-20 21:05:00 64.91 kg [facility] BMI 2022-01-20 21:05:00 22.41 kg/m2 [facility] Oxygen saturation in 2022-01-20 21:05:00 98 /min University of Arterial blood by [facility] Pulse oximetry Branch Systolic blood 2022-01-06 20:55:00 102 mm[Hg] Univer sity of pressure [facility] Diastolic blood 2022-01-06 20:55:00 70 mm[Hg] Unive rsity of pressure [facility] Heart rate 2022-01-06 20:55:00 105 /min [facility] Body temperature 2022-01-06 20:55:00 36.83 Viktoriya Univ [facility] Respiratory rate 2022-01-06 20:55:00 18 /min Univ ers[facility] Body height 2022-01-06 20:55:00 170.2 cm [facility] Body weight 2022-01-06 20:55:00 65.046 kg [facility] BMI 2022-01-06 20:55:00 22.46 kg/m2 Universi ty of [facility] Branch Systolic blood 2022-01-03 20:00:00 112 mm[Hg] Univer sity of pressure [facility] Branch Diastolic blood 2022-01-03 20:00:00 78 mm[Hg] Unive rsity of pressure [facility] Branch Heart rate 2022-01-03 20:00:00 98 /min [facility] Body temperature 2022-01-03 20:00:00 37.17 Viktoriya Univ ersity of [facility] Branch Respiratory rate 2022-01-03 20:00:00 18 /min Univ ersity of [facility] Body height 2022-01-03 20:00:00 170.2 cm [facility] [place] [facility] [place] Body weight 2022-01-03 20:00:00 65.273 kg [facility] BMI 2022-01-03 20:00:00 22.54 kg/m2 [facility] Oxygen saturation in 2022-01-03 20:00:00 97 /min University of Arterial blood by [facility] Pulse oximetry Branch Systolic blood 2021-12-09 21:03:00 93 mm[Hg] Univer sity of pressure [facility] Diastolic blood 2021-12-09 21:03:00 60 mm[Hg] Unive rsity of pressure [facility] Heart rate 2021-12-09 21:03:00 56 /min [facility] ty [facility] Body temperature 2021-12-09 21:03:00 36.72 Viktoriya Univ ersity of [facility] Branch Respiratory rate 2021-12-09 21:03:00 18 /min Univ ersity of [facility] Branch Body height 2021-12-09 21:03:00 170.2 cm [facility] Body weight 2021-12-09 21:03:00 61.236 kg [facility] BMI 2021-12-09 21:03:00 21.14 kg/m2 Universi ty of [facility] Branch Body mass index 2021-12-09 21:03:00 43.82 % Unive rsity of (BMI) [Percentile] [place] [facility] Per age and sex Branch Systolic blood 2021-11-19 15:38:00 108 mm[Hg] Univer sity of pressure [facility] Diastolic blood 2021-11-19 15:38:00 77 mm[Hg] Unive rsity of pressure [facility] Heart rate 2021-11-19 15:38:00 108 /min Universi ty of [facility] Respiratory rate 2021-11-19 15:38:00 18 /min Univ ersity of [facility] Branch Body height 2021-11-19 15:38:00 170.2 cm [facility] [place] Body weight 2021-11-19 15:38:00 61.264 kg [facility] [place] [facility] [place] BMI 2021-11-19 15:38:00 21.15 kg/m2 Universi ty of [facility] Body mass index 2021-11-19 15:38:00 44.07 % Unive rsity of (BMI) [Percentile] [place] [facility] Per age and sex Branch Oxygen saturation in 2021-11-19 15:38:00 98 /min University of Arterial blood by [facility] Pulse oximetry Branch Systolic blood 2021-11-17 20:32:00 95 mm[Hg] Univer sity of pressure [facility] Diastolic blood 2021-11-17 20:32:00 56 mm[Hg] Unive rsity of pressure [facility] Heart rate 2021-11-17 20:32:00 114 /min Universi ty of [facility] Body temperature 2021-11-17 20:32:00 36.94 Viktoriya Univ ersity of [facility] Branch Respiratory rate 2021-11-17 20:32:00 16 /min Univ ersity of [facility] Branch Body height 2021-11-17 20:32:00 170.2 cm [facility] Body weight 2021-11-17 20:32:00 60.782 kg [facility] BMI 2021-11-17 20:32:00 20.99 kg/m2 Universi ty of [facility] Body mass index 2021-11-17 20:32:00 41.97 % Unive rsity of (BMI) [Percentile] [place] [facility] Per age and sex Branch Oxygen saturation in 2021-11-17 20:32:00 98 /min University of Arterial blood by [facility] Pulse oximetry Branch Systolic blood 2021-11-08 20:54:00 109 mm[Hg] Univer sity of pressure [facility] Branch Diastolic blood 2021-11-08 20:54:00 72 mm[Hg] Unive rsity of pressure [facility] Heart rate 2021-11-08 20:54:00 88 /min Universi ty of [facility] Body temperature 2021-11-08 20:54:00 36.72 Viktoriya Univ ersity of [facility] Branch Respiratory rate 2021-11-08 20:54:00 19 /min Univ ersity of [facility] Body height 2021-11-08 20:54:00 170.2 cm Universi ty of [facility] Body weight 2021-11-08 20:54:00 60.81 kg Universi ty of [facility] BMI 2021-11-08 20:54:00 21.00 kg/m2 Universi ty of [facility] Body mass index 2021-11-08 20:54:00 42.16 % Unive rsity of (BMI) [Percentile] [facility] Per age and sex Branch Oxygen saturation in 2021-11-08 20:54:00 98 /min University of Arterial blood by [facility] Pulse oximetry Branch Systolic blood 2021-10-10 21:15:00 103 mm[Hg] Univer sity of pressure [facility] Diastolic blood 2021-10-10 21:15:00 71 mm[Hg] Unive rsity of pressure [facility] Heart rate 2021-10-10 21:15:00 93 /min Universi ty of [facility] Body temperature 2021-10-10 21:15:00 36.78 Viktoriya Univ ersity of [facility] Respiratory rate 2021-10-10 21:15:00 18 /min Univ ersity of [facility] Body height 2021-10-10 21:15:00 170.2 cm Universi ty of [facility] Body weight 2021-10-10 21:15:00 61.009 kg Universi ty of [facility] BMI 2021-10-10 21:15:00 21.07 kg/m2 Universi ty of [facility] Body mass index 2021-10-10 21:15:00 43.28 % Unive rsity of (BMI) [Percentile] [place] [facility] Per age and sex Branch Systolic blood 2021-09-12 20:55:00 110 mm[Hg] Univer sity of pressure [facility] Diastolic blood 2021-09-12 20:55:00 72 mm[Hg] Unive rsity of pressure [facility] Heart rate 2021-09-12 20:55:00 74 /min Universi ty [facility] Body temperature 2021-09-12 20:55:00 37.06 Viktoriya Univ ersity [facility] Body height 2021-09-12 20:55:00 170.2 cm Universi ty [facility] Body weight 2021-09-12 20:55:00 [facility] BMI 2021-09-12 20:55:00 20.96 kg/m2 [facility] Body mass index 2021-09-12 20:55:00 42.01 % Unive rsity of (BMI) [Percentile] [place] [facility] Per age and sex Branch height 2020-06-01 15:20:00 66.00 [in_i] [facility] weight 2020-06-01 15:20:00 159.4 [lb_av] [facility] temperature 2020-06-01 15:20:00 98.0 [degF] [facility] bmi 2020-06-01 15:20:00 25.73 kg/m2 [facility] oximetry 2020-06-01 15:20:00 98 % [facility] respiratory rate 2020-06-01 15:20:00 15 /min Comm on [facility] blood pressure 2020-06-01 15:20:00 121 mm[Hg] Common [facility] - systolic [facility] blood pressure 2020-06-01 15:20:00 71 mm[Hg] Common [facility] - diastolic [facility] height 2020-03-08 14:00:00 66.00 [in_i] [facility] weight 2020-03-08 14:00:00 156.8 [lb_av] [facility] temperature 2020-03-08 14:00:00 98.0 [degF] Common [facility] bmi 2020-03-08 14:00:00 25.31 kg/m2 [facility] 2020-03-08 14:00:00 97 % Common [facility] respiratory rate 2020-03-08 14:00:00 15 /min Comm on [facility] blood pressure 2020-03-08 14:00:00 112 mm[Hg] Common [facility] - systolic [facility] blood pressure 2020-03-08 14:00:00 66 mm[Hg] Common [facility] - diastolic [facility] Procedures Procedure Date / Time Performing Clinician Source Performed POCT TEST 2022-05-22 00:00:00 Emelia Norton [facility] CBC WITH DIFF 2022-03-28 09:30:00 Carrillo [facility] CENTRAL NEURAXIAL BLOCK 2022-03-27 14:14:41 Priscilla Alvarado [facility] CBC WITH DIFF 2022-03-26 17:41:00 Carrillo [facility] HEPATITIS B SURFACE 2022-03-26 17:41:00 Olman Vizcaino [facility] ANTIGEN Medical Branch ADC OR JUDE ONLY - 2022-03-26 17:41:00 Carrillo Olman [facility] RPR Medical Branch HIV 1/2 AG-AB WITH 2022-03-26 17:41:00 Carrillo Olman [facility] REFLEX Medical Branch HB ABO GROUPING 2022-03-26 17:26:00 Carrillo [facility] RHO (D) IMMUNE GLOBULIN 2022-03-26 17:26:[address] [facility] NOTICE OF PRIVACY 2022-03-24 19:01:14 Doctor Unassigned, No Univ [facility] PRACTICES Name Medical Branch CONSENT/REFUSAL FOR 2022-03-24 18:57:42 [facility] Name Medical Branch ASSIGNMENT OF BENEFITS 2022-03-24 18:57:30 [facility] PO[facility] URINALYSIS W/O 2022-03-18 20:52:00 Olman Vizcaino [facility] DSU PRE-OP 2022-03-11 05:01:00 Doctor Unassigned, No [facility] POCT URINALYSIS W/O 2022-03-11 00:00:00 Dana Vizcainon [facility] DME/SUPPLY JUSTIFICATION 2022-03-04 05:01:00 Doctor [facility]assigned[facility] POCT URINALYSIS W/O 2022-02-20 00:00:00 Carrillo Olman [facility] DME/SUPPLY JUSTIFICATION 2022-02-13 05:01:00 Doctor Unassigned, No [facility] TDAP VACCINE, >11 YRS, 2022-02-04 21:40:30 Olman Vizcaino [facility] POCT URINALYSIS W/O 2022-02-04 21:13:00 Olman Vizcaino [facility] 2 HR GLUCOSE TOLERANCE 2022-01-31 15:31:00 Olman Vizcaino [facility] 1 HR GLUCOSE TOLERANCE 2022-01-31 14:32:00 Olman Vizcaino [facility] GLUCOSE FASTING 2022-01-31 13:30:00 Carrillo [facility] POCT URINALYSIS W/O 2022-01-20 21:06:[address] [facility] POCT URINALYSIS W/O 2022-01-06 21:00:00 Olman Vizcaino [facility] CONSENT/REFUSAL FOR 2022-01-03 19:55:05 Doctor Unassigned, No [facility] DIAGNOSIS AND TREATMENT [facility] POCT URINALYSIS W/O 2021-12-09 00:00:00 Olman Vizcaino [facility] POCT URINALYSIS 2021-11-17 20:56:00 David [facility] [facility] POCT URINALYSIS W/O 2021-11-08 20:55:00 Emelia [facility]RAV[facility] Medical Branch EXTERNAL PROVIDER 2021-11-01 05:01:00 Doctor Unassigned, No [facility] RECORDS Name Medical Branch EXTERNAL PROVIDER 2021-10-23 05:01:00 Doctor Unassigned, No [facility] RECORDS Name Medical Branch SCANNED LAB RESULTS 2021-09-23 05:01:00 [facility]ALYSIS W/O 2021-09-12 00:00:00 Olman Vizcaino [facility] SPECIFIC GRAVITY Medical Branch ASSIGNMENT OF BENEFITS 2021-06-14 00:14:23 Doctor Unassigned, No [facility] Medical Branch CONSENT/REFUSAL FOR 2021-06-14 00:14:14 [facility] Name Medical Branch Encounters Start End Encounter Admission Attending Care Care Encounter Source Date/Time Date/Time Type Type Clinicians Facility Department ID 2021-07-17 Outpatient Silva, Na STLMLC STLMLC [id number] 2 Common 13:20:48 [id number] [facility] 2021-07-17 Outpatient Silva, Na STLMLC STLMLC [id number] 2 Common 13:20:28 [id number] [facility] 2021-07-17 Outpatient Silva, Na STLMLC STLMLC [id number] 2 Common 12:37:23 [id number] [facility] 2021-07-17 Outpatient Silva, Na STLMLC STLMLC [id number] 2 Common 12:30:38 [id number] [facility] 2021-07-17 Outpatient Silva, Na STLMLC STLMLC [id number] 2 Common 12:11:42 [id number] [facility] 2021-07-17 Outpatient Silva, Na STLMLC STLMLC [id number] 2 Common 12:03:18 [id number] [facility] 2021-07-17 Outpatient Silva, Na STLMLC STLMLC [id number] 2 Common 12:02:49 [id number] [facility] 2021-07-17 Outpatient Silva, Na STKELTON STLC [id number] 2 Common 12:01:25 [id number] [facility] 2021-07-17 Outpatient Silva, Na STNAKULLC STLMLC [id number] 2 Common 11:47:00 [id number] [facility] 2021-07-17 Outpatient Silva, Na STNAKULLC STLMLC [id number] 2 Common 11:46:00 [id number] [facility] 2021-07-17 Outpatient Volodymyrender, STNAKULLC STLC [id number] Common 11:43:27 Isamar [id number] [facility] 2022-05-22 2022-05-22 Outpatient R ERROL HIRAYEISON [facility] B [id number] Univers 10:00:00 10:53:42 EMELIA NORTON [facility] 2022-05-22 2022-05-22 Office [facility] 1.2.840.114 [id number] Univers 10:00:00 10:53:42 Visit Emelia ANETTE 350.1.13.10 it y of [place] [id number] [address] 2022-05-22 2022-05-22 Refill [facility] 1.2.840.114 [id number] Univers 00:00:00 00:00:00 Emelia CHEEMA 350.1.13.10 it y [place] [id number] [address] 2022-05-13 2022-05-13 Outpatient R ADALBERTOHIRA JIMENEZYEISON [facility] B [id number] Univers 16:00:00 16:39:37 EMELIA NORTON [facility] 2022-05-13 2022-05-13 Routine [facility] 1.2.840.114 [id number] Univers 16:00:00 16:39:37 Hirayeison ANETTE 350.1.13.10 i ty of Visit [place] [id number] [facility] [address] 2022-05-10 2022-05-10 Nurse PRISCILLA Bentley 1.2.840.114 [id number] Univers 00:00:00 00:00:00 Triage Sole ROBBINS 350.1.13.10 it y of [facility] 4.2.7.2.686 Juvenal [id number] [facility] [address] 2022-05-07 2022-05-07 [facility] [id number] Univers 14:00:00 14:00:00 ERROL EMELIA [facility] 2022-04-16 2022-04-16 Routine [facility] 1.2.840.114 [id number] Univers 14:00:00 14:00:00 Emelia CHEEMA 350.1.13.10 i ty of Visit WOMEN'S 4.2.7.2.686 [facility] [id number] [address] 2022-04-16 2022-04-16 Outpatient R [facility]AL[facility] [id number] Univers 14:00:00 13:57:58 [facility] 2022-03-26 2022-03-28 Inpatient P OLMAN VIZCAINO [facility] DAVID [id number] Univers 11:35:00 20:50:00 ity of [facility] 2022-03-26 2022-03-28 Hospital Olman Vizcaino [facility] 1.2.840.114 [id number] Univers 11:35:00 20:50:00 Encounter HUSAM 350.1.13.10 ity of [place] 4.2.7.2.686 [facility] [id number] [place] [address] [place] 2022-03-27 2022-03-27 Anesthesia Leo [facility] 1.2.840.114 [id number] Univers 20:00:01 20:00:01 Event Yunior WEINER 350.1.13.10 i ty of [place] 4.2.7.2.686 [facility] [id number] [address] 2022-03-27 2022-03-27 [facility] 1.2.840.114 [id number] Univers 08:51:00 17:33:00 Event Priscilla Wilburn HUSAM 350.1.13.10 i ty of [place] 4.2.7.2.686 [facility] [id number] [facility] [address] 2022-03-24 2022-03-24 Laboratory Only, Adc Test [facility] 1.2.840. 114 [id number] Univers 14:15:00 14:30:00 Only Michi Valdovinos 350.1.13.10 ity of [place] 4.2.7.2.686 [facility] [id number] [facility] [address] 2022-03-24 2022-03-24 Outpatient R ARUNA [facility] [id number] Univers 14:15:00 14:15:00 MICHI ity [facility] 2022-03-18 2022-03-18 Outpatient R CARRILLO [facility] [id number] Univers 16:00:00 16:10:51 ity [facility] 2022-03-18 2022-03-18 Routine Carrillo [facility] 1.2.840.114 [id number] Univers 16:00:00 16:10:51 ANETTE 350.1.13.10 i ty of Visit WOMEN'S 4.2.7.2.686 [facility] [id number] [facility] [address] 2022-03-14 2022-03-14 Treatment Coordinator Lab, Mustapha Philip [facility] 1.2.840.1 14 [id number] Univers 17:00:00 17:15:00 Visit Carrillo Hun[place] 350.1.13.10 ity of [place] 4.2.7.2.686 Juvenal as KRISS?BLEA [id number] Sd yani JALIL [address] [place] [address] MEDICAL OFFICE BUILDING 2022-03-14 2022-03-14 Outpatient R OLMAN VIZCAINO [facility] [id number] Univers 17:00:00 16:16:51 ity of [facility] 2022-03-11 2022-03-11 Outpatient R CARRILLO [facility] [id number] Univers 16:00:00 16:31:20 ity of [facility] 2022-03-11 2022-03-11 Routine Olman Vizcaino 1.2.840.114 [id number] Univers 16:00:00 16:31:20 ANETTE 350.1.13.10 i ty of [place] [id number] [address] 2022-03-11 2022-03-11 Orders Doctor PRISCILLA 1.2.840.114 [id number] Univers 00:00:00 00:00:00 Only Unassigned, ROSENDO 350.1.13.10 ity of [place] [facility] 4.2.7.2.686 Juvenal as [id number] [address] 2022-03-06 2022-03-06 Outpatient R OLMAN VIZCAINO [facility] [id number] Univers 13:45:00 13:45:00 ity [facility] 2022-03-04 2022-03-04 Orders Doctor PRISCILLA 1.2.840.114 [id number] Univers 00:00:00 00:00:00 Only Unassigned, ROSENDO 350.1.13.10 ity of [place] [facility] 4.2.7.2.686 Ju[place]al as [id number] [address] 2022-03-03 2022-03-03 Telephone Olman Vizcaino 1.2.840.11 4 [id number] Univers 00:00:00 00:00:00 ANETTE 350.1.13.10 it y [place] [id number] [address] 2022-02-20 2022-02-20 Outpatient R OLMAN VIZCAINO [facility] [id number] Univers 13:00:00 13:40:02 ity [facility] 2022-02-20 2022-02-20 Routine Olman Vizcaino 1.2.840.114 [id number] Univers 13:00:00 13:40:02 ANETTE 350.1.13.10 i ty of [place] [id number] [address] 2022-02-19 2022-02-19 Outpatient R EMELIA NORTON [facility] B [id number] Univers 13:15:00 13:15:00 EMELIA NORTON cortney [facility] 2022-02-18 2022-02-18 Outpatient R EMELIA NORTON [facility] B [id number] Univers 16:30:00 16:30:00 EMELIA NORTON cortney [facility] 2022-02-13 2022-02-13 Telephone Olman Vizcaino [facility] 1.2.840.11 [id number] Univers 00:00:00 00:00:00 ANETTE 350.1.13.10 it y [place] [id number] [address] 2022-02-13 2022-02-13 Orders Doctor PRISCILLA 1.2.840.114 [id number] Univers 00:00:00 00:00:00 Only Unassigned, ROSENDO 350.1.13.10 ity of [place] [facility] 4.2.7.2.686 Juvenal as [id number] [address] 2022-02-04 2022-02-04 Outpatient R CARRILLODANAN [facility] [id number] Univers 16:15:00 16:40:42 ity of [facility] 2022-02-04 2022-02-04 Routine Olman Vizcaino [facility] 1.2.840.114 [id number] Univers 16:15:00 16:40:42 ANETTE 350.1.13.10 i ty of [place] [id number] [address] 2022-01-31 2022-01-31 Treatment Coordinator Danyell Stoll Lab Main [facility] 1.2.8 40.114 [id number] Univers 09:30:00 09:45:00 Visit Olman Vizcaino 350.1.13.10 ity of [place] [id number] Sd dic[address] 2022-01-31 2022-01-31 Outpatient R OLMAN VIZCAINO [facility] [id number] Univers 09:30:00 09:30:00 ity of [facility] 2022-01-20 2022-01-20 Outpatient R EMELIA NORTON [facility] B [id number] Univers 16:00:00 16:16:08 EMELIA NORTON ity [facility] 2022-01-20 2022-01-20 Routine Errol [facility] 1.2.840.114 [id number] Univers 16:00:00 16:16:08 Emelia CHEEMA 350.1.13.10 i ty of Visit [place] [id number] [address] 2022-01-19 2022-01-19 Case Olman Vizcaino [facility] 1.2.840.114 [id number] Univers 00:00:00 00:00:00 Management ANETTE 350.1.13.10 ity of [place].2.[place] [facility] [id number] [address] 2022-01-14 2022-01-14 Treatment Coordinator Ultrasound, Adc [facility] 1.2 .840.114 [id number] Univers 11:30:00 12:00:00 Visit Iona Courtney 350.1 .13.10 ity of [place] [id number] Sd diccampbell [address] 2022-01-14 2022-01-14 Outpatient P BARRETT [facility] [id number] Univers 11:30:00 11:30:00 FRANKO it y of [place] [facility] 2022-01-10 2022-01-10 Treatment Coordinator Lab, Ang - Db [facility] 1.2.840.1 14 [id number] Univers 09:45:00 10:00:00 Visit Olman Vizcaino 350.1.13.10 ity of [place] 4.2.7.2.686 Juvenal as KRISS?BLEA [id number] Sd dical OSMAR [address] [place] [address] MEDICAL OFFICE BUILDING 2022-01-10 2022-01-10 Outpatient R OLMAN VIZCAINO [facility] [id number] Univers 09:45:00 09:45:00 ity of [facility] 2022-01-06 2022-01-06 Outpatient R OLMAN VIZCAINO [facility] [id number] Univers 16:00:00 16:14:24 ity of [facility] 2022-01-06 2022-01-06 Routine Olman Vizcaino [facility] 1.2.840.114 [id number] Univers 16:00:00 16:14:24 ANETTE 350.1.13.10 i ty of Visit WOMEN'S 4.2.7.2.686 [facility] [id number] [address] 2022-01-03 2022-01-03 Outpatient X OLMAN VIZCAINO [facility] DAVID [id number] Univers 15:05:00 16:22:00 ity of [facility] 2022-01-03 2022-01-03 Emergency [place] [facility] 1.2. 840.114 [id number] Univers 15:05:00 16:22:00 Olman Vizcaino 350.1.13.10 ity of [place] 4.2.7.2.686 [facility] [id number] [place] [address] [place] 2021-12-17 2021-12-17 Outpatient R EMELIA NORTON [facility] B [id number] Univers 15:30:00 15:30:00 EMELIA NORTON ity [facility] 2021-12-12 2021-12-12 Telephone Olman Vizcaino [facility] 1.2.840.11 [id number] Univers 00:00:00 00:00:00 ANETTE 350.1.13.10 it y of [place] 4.2.7.2.686 [facility] [id number] [address] 2021-12-11 2021-12-11 Case Olman Vizcaino [facility] 1.2.840.114 [id number] Univers 00:00:00 00:00:00 Management ANETTE 350.1.13.10 ity of [place] 4.2.7.2.686 [place] [facility] [id number] [address] 2021-12-10 2021-12-10 Treatment Coordinator Ultrasound, Adc [facility] 1.2 .840.114 [id number] Univers 13:00:00 14:00:00 Visit Iona Courtney 350.1 .13.10 ity [facility] [place]7.2.[place] [id number] Sd dical [address] 2021-12-10 2021-12-10 Outpatient P [facility]TT [facility] [id number] Univers 13:00:00 13:00:00 FRANKO it y of [place] [facility] 2021-12-09 2021-12-09 Outpatient R CARRILLO [facility] [id number] Univers 16:00:00 17:06:24 ity of [facility] 2021-12-09 2021-12-09 Routine Carrillo Olman [facility] 1.2.840.114 [id number] Univers 16:00:00 17:06:24 ANETTE 350.1.13.10 i ty of Visit [place] [id number] [address] 2021-11-19 2021-11-19 Outpatient R CARRILLO [facility] [id number] Univers 10:15:00 10:54:59 ity of [facility] 2021-11-19 2021-11-19 Routine Olman Vizcaino [facility] 1.2.840.114 [id number] Univers 10:15:00 10:54:59 ANETTE 350.1.13.10 i ty of [place] [id number] [address] 2021-11-18 2021-11-18 Nurse PRISCILLA Trujillo 1.2.840.114 [id number] Univers 00:00:00 00:00:00 Triage Aamir ROBBINS 350.1.13.10 ity of [facility] 4.2.7.2.686 Juvenal as [id number] [address] 2021-11-17 2021-11-17 [facility] [id number] Univers 15:40:00 16:00:00 HARLEEN ity o f [facility] 2021-11-17 2021-11-17 Urgent David Pinon [facility] 1.2.840.114 [id number] Univers 15:40:00 16:00:00 Care Harleen Ervin HEALTH 350.1.13.10 ity of [place] 4.2.7.2.686 Ju[place]al as KRISS?BLEA [id number] Sd dic[address] MEDICAL OFFICE BUILDING 2021-11-08 2021-11-08 Outpatient R ADALBERTOEMELIA JIMENEZ [facility] B [id number] Univers 16:00:00 16:07:36 ERROL EMELIA pagan [facility] 2021-11-08 2021-11-08 Routine [facility] 1.2.840.114 [id number] Univers 16:00:00 16:07:36 Emelia CHEEMA 350.1.13.10 i ty of Visit [place]2.[place] [facility] [id number] [address] 2021-11-01 2021-11-01 Orders Doctor PRISCILLA 1.2.840.114 [id number] Univers 00:00:00 00:00:00 Only Unassigned, ROSENDO 350.1.13.10 ity of [place] [facility] 4.2.7.2.686 Juvenal as [id number] [address] 2021-10-31 2021-10-31 Case Carrillo, Olman [facility] 1.2.840.114 [id number] Univers 00:00:00 00:00:00 Management ANETTE 350.1.13.10 [place] [facility] [id number] [address] 2021-10-23 2021-10-23 Orders Doctor PRISCILLA 1.2.840.114 [id number] Univers 00:00:00 00:00:00 Only Unassigned, ROSENDO 350.1.13.10 ity of [place] [facility] 4.2.7.2.686 Juvenal as [id number] [address] 2021-10-10 2021-10-10 Outpatient R OLMAN VIZCAINO [facility] [id number] Univers 16:00:00 16:26:52 ity [facility] 2021-10-10 2021-10-10 Routine Olman Vizcaino 1.2.840.114 [id number] Univers 16:00:00 16:26:52 ANETTE 350.1.13.10 i ty of [place] [id number] [address] 2021-10-10 2021-10-10 Outpatient R OLMAN VIZCAINO [facility] [id number] Univers 16:00:00 16:00:00 ity [facility] 2021-10-01 2021-10-01 Telephone Olman Vizcaino 1.2.840.11 [id number] Univers 00:00:00 00:00:00 ANETTE 350.1.13.10 it y [place] [id number] [address] 2021-09-30 2021-09-30 Telephone Olman Vizcaino 1.2.840.11 4 [id number] Univers 00:00:00 00:00:00 ANETTE 350.1.13.10 it y [place] [id number] [address] 2021-09-26 2021-09-26 Telephone Olman Vizcaino 1.2.840.11 4 [id number] Univers 00:00:00 00:00:00 ANETTE 350.1.13.10 it y [place] [id number] [address] 2021-09-23 2021-09-23 Outpatient R OLMAN VIZCAINO [facility] [id number] Univers 10:00:00 10:00:00 ity [facility] 2021-09-23 2021-09-23 Laureen WELLS 1.2.840.[id number] [place] [address] 00:00:00 00:00:00 Only Unassigned, ROSENDO 350.1.13.10 ity of [place] [facility] 4.2.7.2.686 Juvenal as [id number] [address] 2021-09-18 2021-09-18 Telephone Olman Vizcaino 1.2.840.11 4 [id number] Univers 00:00:00 00:00:00 ANETTE 350.1.13.10 it y of [place]OM[place]'S 4.2.7.2.686 [facility] s HEALTH [id number] [address] 2021-09-12 2021-09-12 Outpatient R OLMAN VIZCAINO [facility] [id number] Univers 16:00:00 16:38:19 ity [facility] 2021-09-12 2021-09-12 Routine Olman Vizcaino [facility] 1.2.840.114 [id number] Univers 16:00:00 16:38:19 [place] 350.1.13.10 i ty of Visit WOMEN'S 4.2.7.2.686 [facility] s HEALTH [id number] [address] 2021-09-12 2021-09-12 Outpatient R OLMAN VIZCAINO [facility] [id number] Univers 16:00:00 16:38:19 ity of [facility] 2021-09-12 2021-09-12 Outpatient R OLMAN VIZCAINO [facility] [id number] Univers 16:00:00 16:00:00 ity [facility] 2021-08-16 2021-08-16 Outpatient R OLMAN VIZCAINO [facility] [id number] Univers 14:00:00 14:00:00 ity [facility] 2021-08-16 2021-08-16 Outpatient R [facility] [id number] Univers 14:00:00 14:00:00 ity [facility] 2021-08-12 2021-08-12 Outpatient R OLMAN VIZCAINO [facility] [id number] Univers 14:30:00 15:21:10 ity [facility] 2021-08-12 2021-08-12 Routine FishOlman HUGO 1.2.840.114 [id number] Univers 14:30:00 15:21:10 ANETTE 350.1.13.10 i ty of [place] [id number] [address] 2021-08-12 2021-08-12 Outpatient R OLMAN VIZCAINO [facility] [id number] Univers 14:30:00 15:21:10 ity of [facility] 2021-08-12 2021-08-12 Orders Doctor PRISCILLA 1.2.840.114 [id number] Univers 00:00:00 00:00:00 Only Unassigned, ROSENDO 350.1.13.10 ity of [place] [facility] 4.2.7.2.686 Juvenal as [id number] [place] [address] [address] 2021-08-01 2021-08-01 Olman Marquez [facility] HUGO 1.2.840.114 [id number] Univers 00:00:00 00:00:00 Management ANETTE 350.1.13.10 [place] [facility] [id number] [address] 2021-07-30 2021-07-30 Outpatient R OLMAN VIZCAINO [facility] [id number] Univers 14:30:00 15:46:35 ity of [facility] 2021-07-30 2021-07-30 Olman Luis [facility] 1.2.840.114 [id number] Univers 14:30:00 15:46:35 ANETTE 350.1.13.10 i ty of [place] [id number] [address] 2021-06-13 2021-06-13 Laboratory Only, Ang Db Test [facility] 1.2.8 40.114 [id number] Univers 18:30:00 18:45:00 Only David Pinon 350.1.13.10 ity of [place] 4.2.7.2.686 Juvenal as KRISS?BLEA [id number] [address] MEDICAL OFFICE BUILDING 2021-06-13 2021-06-13 Outpatient R NEVILLE [facility] [id number] Univers 18:30:00 18:30:00 DAVID ity of [facility] 2021-06-13 2021-06-13 Letter Doctor PRISCILLA 1.2.840.114 [id number] Univers 00:00:00 00:00:00 (Out) Unassigned, ROSENDO 350.1.13.10 ity of [place] [facility] 4.2.7.2.686 Juvenal as [id number] [facility] [address] [place] 2021-06-13 2021-06-13 Orders Doctor PRISCILLA 1.2.840.114 [id number] Univers 00:00:00 00:00:00 Only Unassigned, ROSENDO 350.1.13.10 ity of [place] [facility] 4.2.7.2.686 Juvenal as [id number] [facility] [address] 2020-12-19 2020-12-19 OFFICE STLMLC STLC [id number] Co mmon 00:00:00 00:00:00 VISIT EST Spir it PT LEVEL 3 - [facility] 2020-12-18 2020-12-18 (TEL[facility] [id number] Co mmon 00:00:00 00:00:00 [facility] 2020-10-25 2020-10-25 Outpatient R NAZARIO [facility] [id number] Univers 17:00:00 17:00:00 SARAH ity [facility] 2020-10-24 2020-10-24 Laboratory Lab, Adc [facility] Po I [facility] 1.2. 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 [employer] 2020-10-24 2020-10-24 Outpatient R MARIANA [facility] [id number] Univers 17:00:00 17:00:00 FAITH pagan o f [facility] 2020-10-24 2020-10-24 Orders Doctor PRISCILLA Munguia.2.840.114 [id number] Univers 00:00:00 00:00:00 Only Unassigned, ROSENDO 350.1.13.10 ity of [place] [facility] 4.2.7.2.686 Juvenal as [id number] [facility] [address] 2020-10-24 2020-10-24 Letter Doctor PRISCILLA 1.2.840.114 [id number] Univers 00:00:00 00:00:00 (Out) Unassigned, ROSENDO 350.1.13.10 ity of [place] [facility] 4.2.7.2.686 Juvenal as [phone] [facility] [address] 2020-09-23 2020-09-23 Emergency X YAYUMIKO, [facility] ERT [id number] Univers 06:47:00 06:47:00 WADE ity [facility] 2020-08-02 2020-08-02 (TEL) STLMLC STLMLC [id number] Co mmon 00:00:00 00:00:00 [facility] 2020-08-02 2020-08-02 OL DIG E/M STLMLC STLMLC [id number] Common 00:00:00 00:00:00 [facility] 11-20 Spir it MIN - [facility] 2020-06-01 2020-06-01 OFFICE STLMLC STLMLC [id number] Co mmon 00:00:00 00:00:00 VISIT EST Spir it PT LEVEL 3 - [facility] 2020-03-08 2020-03-08 PREV VISIT STLMLC STLMLC [id number] Common 00:00:00 00:00:00 - EST - Spirit AGE 12-17 - [facility] 2020-01-06 2020-01-06 Outpatient Brazamy Garciat [id number] Common 15:50:00 15:50:[address] [facility] 2018-11-26 2018-11-26 [place] [place] [id number] Common 11:40:00 11:40:[address] [facility] 2018-07-26 2018-07-26 [place] [place] [id number] Common 21:51:00 21:51:[address] [facility] 2018-07-23 2018-07-23 Outpatient Jose Garciat [id number] Common 14:00:00 14:00:[address] [facility] 2018-06-25 2018-06-25 [place] [id number] Common 23:45:00 23:45:[address] [facility] 2018-06-25 2018-06-25 Outpatient Jose Garciat [id number] Common 11:30:00 11:30:[address] [facility] 2018-02-19 2018-02-19 Outpatient Jose Garciat [id number] Common 16:00:00 16:00:[address] [facility] Results Test Description Test Time Test Comments Results Result Comments Source POCT TEST 2022-05-22 16:46:00 Test Item Value Reference Range Interpretation Comme nts POCT PREG (test code = 1605) Negative On board controls acceptable with C Line (test code = 3574) Yes POCT PREG LOT # (test code = 3575) POCT PREG TEST DATE (test code = 3576) [id number] 16:46:00 Test Item Value Reference Range Interpretation Comments POCT PREG (test code = 1605) Negative On board controls acceptable with C Yes Line (test code = 3574) POCT PREG LOT # (test code = 3575) POCT PREG TEST DATE (test code = 3576) [facility] [id number] 11:20:54 Test Item Value Reference Range Interpretation Comments WBC (test code = See_Comment [Automated 3790-2) message] The sy stem which generated this result transmitted reference range : 4.30 - 11.10 10*3/?L. The reference range was not used to interpret this result as normal/abnormal . RBC (test code = See_Comment L [Automated 789-8) message] The sy stem which generated this result transmitted reference range : 3.93 - 5.25 10*6/?L. The reference range was not used to interpret this result as normal/abnormal . HGB (test code = 9.8 g/dL 11.6-15 L 718-7) HCT (test code = 28.7 % 35.7-45.2 L 4544-3) MCV (test code = 90.8 fL 80.6-95.5 787-2) MCH (test code = 31.0 pg 25.9-32.8 785-6) MCHC (test code = 34.1 g/dL 31.6-35.1 786-4) RDW-SD (test code = 40.3 fL 39-49.9 38047-3) RDW-CV (test code = 12.5 % 12-15.5 788-0) PLT (test code = See_Comment [Automated 777-3) message] The sy stem which generated this result transmitted reference range : 166 - 358 10*3/ ?L. The reference r anjelica was not used to interpret this result as normal/abnormal . MPV (test code = 9.3 fL 9.5-12.9 L 37225-9) NRBC/100 WBC (test See_Comment [Automat ed code = 9029536548) message] The system which generated this result transmitted reference range : 0.0 - 10.0 /100 WBCs. The refer ence range was not u sed to interpret th is result as normal/abnormal . NRBC x10^3 (test code See_Comment [Auto mated = [id number]) message] The s ystem which generated this result transmitted reference range : 10*3/?L. The reference range was not used to interpret this result as normal/abnormal . GRAN MAT (NEUT) % 75.0 % (test code = 770-8) IMM GRAN % (test code 0.30 % = 5684809436) LYMPH % (test code = 14.0 % 736-9) MONO % (test code = 9.0 % 5905-5) EOS % (test code = 1.4 % 713-8) BASO % (test code = 0.3 % 706-2) GRAN MAT x10^3(ANC) 7.33 10*3/uL 1.88-7.09 H (test code = 5581479280) IMM GRAN x10^3 (test 0.03 10*3/uL 0-0.06 code = 1856129852) LYMPH x10^3 (test code 1.37 10*3/uL 1.32-3.29 = 731-0) MONO x10^3 (test code 0.88 10*3/uL 0.33-0.92 = 742-7) EOS x10^3 (test code = 0.14 10*3/uL 0.03-0.39 711-2) BASO x10^3 (test code 0.03 10*3/uL 0.01-0.07 = 704-7) Lab Interpretation Abnormal (test code = 73863-9) [facility] IMMUNE [id number] 21:31:43 Test Item Value Reference Range Interpretation Comments RHIG CANDIDATE? No- see comment Patient i s not a (test code = candidate for R hIg- 5055) Patient is Rh Positive.Perfor med at [facility] Laboratory Services - [facility] Blood [address] [place] [address] Free: [phone] A No. [id number] [facility]Type and Screen - ONCE [id number] 20:52:26 Test Item Value Reference Range Interpretation Comments ABO & RH (test code O Positive Performe d at [facility] = 20) Laboratory Serv [facility] [place], [place] [address]Toll Free: [phone] A No. [id number] IAT (test code = Negative Performed a t [facility] 1185) Laboratory Serv [facility] [place], [place] [address]Toll Free: [phone] A No. [id number] [facility] W/O SPECIFIC [id number] 20:52:00 Test Item Value Reference Range Interpretation [...] code = 3257) n/a Negative - Negative [facility] URINALYSIS W/O SPECIFIC [id number] 21:17:00 Test Item Value Reference Range Interpretation [...] code = 3257) N/A Negative - Negative [facility] URINALYSIS W/O SPECIFIC [id number] 18:16:00 Test Item Value Reference Range Interpretation [...] code = 3257) n/a Negative - Negative [facility] URINALYSIS W/O SPECIFIC [id number] 21:14:00 Test Item Value Reference Range Interpretation [...] Negative Lab Interpretation (test code = Normal 15781-1) [facility] [id number] 14:36:43 Test Item Value Reference Range Interpretation Comments GLU FASTNG (test code = 1099709581) 77 mg/dL 70-110 Lab Interpretation (test code = Normal 83177-5) [facility] URINALYSIS W/O SPECIFIC [id number] 21:09:00 Test Item Value Reference Range Interpretation [...] Negative Lab Interpretation (test code = Normal 23028-3) [facility] URINALYSIS W/O SPECIFIC [id number] 21:01:00 Test Item Value Reference Range Interpretation [...] code = 3257) n/a Negative - Negative [facility] URINALYSIS W/O SPECIFIC [id number] 21:21:00 Test Item Value Reference Range Interpretation [...] code = 3257) n/a Negative - Negative [facility] URINALYSIS W SPECIFIC [id number] 20:57:00 Test Item Value Reference Range Interpretation [...] controls Lab Interpretation Abnormal (test code = 44703-1) [facility] URINALYSIS W/O SPECIFIC [id number] 20:58:00 Test Item Value Reference Range Interpretation [...] Negative Lab Interpretation (test code = Normal 25999-6) [facility] URINALYSIS W/O SPECIFIC [id number] 21:09:00 Test Item Value Reference Range Interpretation [...] code = 3257) n/a Negative - Negative [facility]anoSTREP A [id number] 00:00:00 Test Item Value Reference Range Interpretation Comments Result (test code = 52489-1) Negative SARS-COV 2 AntigenSARS-COV 2 Antigen
[2022-05-30] MEDS ORDERED: ONDANSETRON 4 MG/2 ML VIAL ONE (03:06)
[2022-05-30] MEDS ORDERED: NA CHLORIDE 0.9% 1,000 ML ONE (03:06)
[2022-05-30 03:09] LABS: Absolute Lymphocytes (CBC) 1.9 K/uL (0.7-4.9); Hematocrit 38.3 % (36.0-45.0); Lymphocytes % 27.1 % (15.3-44.8); MCV 86.8 fL (80-100); MPV 6.8 fL (7.6-11.3); RBC Red Blood Cell Count 4.41 M/uL (3.86-4.86)
[2022-05-30 03:19] LABS: Urine Blood 1+ (Negative); Urine Glucose Negative (Negative); Urine Protein 2+ (Negative); Urine Specific Gravity 1.015 (1.005-1.030)
[2022-05-30 03:38] LABS: Albumin 3.8 g/dL (3.4-5.0); Bilirubin Total 0.4 mg/dL (0.2-1.0); Potassium 4.2 mmol/L (3.5-5.1); Protein, Total 7.4 g/dL (6.4-8.2)
[2022-05-30] MEDS ORDERED: CEFTRIAXONE 1000 MG/VIAL ONE (04:05)
[2022-05-30] MEDS ORDERED: CIPROFLOXACIN HCL 500 MG TAB ONE (04:05)
--- NOTE | 2022-05-30 06:11 | ER ---
Nurse's Notes [facility] Name: Peace Garcia Age: 21 yrs Sex: Female : 2000 Arrival Date: 05/30/2022 Time: 00:04 Bed 23 Private MD: Diagnosis: Abdominal pain, Generalized;Nausea;Diarrhea, unspecified;UTI/ Urinary tract infection, site not specified;Elevated white blood cell count, unspecified Presentation: 05/30 00:11 Chief complaint: RLQ pain and N/D x 3 hours. Coronavirus screen: At this time, the hb client does not indicate any symptoms associated with coronavirus-19. Ebola Screen: No symptoms or risks identified at this time. Initial Sepsis Screen: Does the patient meet any 2 criteria? Yes Does the patient have a suspected source of infection? No. Patient's initial sepsis screen is negative. Risk Assessment: Do you want to hurt yourself or someone else? Patient reports no desire to harm self or others. Onset of symptoms was May 30, 2022. 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 - Social history:: Smoking status: Reported history of juuling and/or vaping. Screenin:30 Abuse screen: Denies threats or abuse. pf1 02:30 Nutritional screening: No deficits noted. Tuberculosis screening: No symptoms or risk pf1 factors identified. Fall Risk None identified. IV access (20 points). Assessment: 02:30 Pain: Complains of pain in right lower quadrant. pf1 02:30 General: Appears in no apparent distress. comfortable, well groomed, well developed, pf1 Behavior is calm, cooperative, appropriate for age, quiet. Neuro: No deficits noted. Cardiovascular: No deficits noted. Respiratory: No deficits noted. Airway is patent Respiratory effort is even, unlabored, Breath sounds are clear bilaterally. GI: Bowel sounds present X 4 quads. Abd is soft and non tender X 4 quads. Reports diarrhea, nausea, patient stated had diarrhea x 3 episodes in the past 24 hours. : No deficits noted. EENT: No deficits noted. Derm: No deficits noted. Musculoskeletal: No deficits noted. Vital Signs: 00:11 BP 123 / 77; Pulse 101; Resp 16; Temp 99; Pulse Ox 100% ; Weight 63.5 kg; Height 5 ft. hb 7 in. (170.18 cm); Pain 5/10; 03:00 BP 103 / 67; Pulse 81; Resp 18; Temp 98.9; Pulse Ox 99% ; Pain 1/10; pf1 04:00 BP 101 / 64; Pulse 82; Resp 18; Temp 99; Pulse Ox 100% ; Pain 1/10; pf1 05:00 BP 97 / 66; Pulse 82; Resp 18; Pulse Ox 100% ; Pain 0/10; pf1 06:19 BP 100 / 69; Pulse 87; Resp 18; Temp 99.1; Pulse Ox 100% ; Pain 0/10; pf1 00:11 Body Mass Index 21.93 (63.50 kg, 170.18 cm) hb ED Course: 00:04 Patient arrived in ED. jj6 00:12 Triage completed. hb 00:12 Arm band placed on. hb 00:16 Gloria Stewart PA-C is PHCP. sb4 00:16 Shaheen Wright MD is Attending Physician. sb4 02:55 Karin villagran, MELVI is Primary Nurse. pf1 03:00 No provider procedures requiring assistance completed. Inserted saline lock: 20 gauge pf1 in right antecubital area, using aseptic technique. 03:30 Patient has correct armband on for positive identification. Placed in gown. Bed in low pf1 position. Call light in reach. 04:40 CT Abd/Pelvis - IV Contrast Only In Process Unspecified. EDMS 06:37 IV discontinued, intact, bleeding controlled, No redness/swelling at site. Pressure pf1 dressing applied. Administered Medications: 03:00 Drug: NS 0.9% 1000 ml Route: IV; Rate: 1 bolus; Site: right antecubital; pf1 04:00 Follow up: Response: No adverse reaction; IV Status: Completed infusion; IV Intake: pf1 1000ml 03:20 Drug: Zofran (Ondansetron) 4 mg Route: IVP; Site: right antecubital; pf1 04:00 Follow up: Response: No adverse reaction; Nausea is decreased pf1 04:05 Drug: Rocephin (cefTRIAXone) 1 grams Route: IV; Rate: per protocol; Site: right pf1 antecubital; 04:07 Follow up: IV Status: Completed infusion; IV Intake: 10ml pf1 04:05 Drug: Cipro (ciprofloxacin) 500 mg Route: PO; pf1 05:00 Follow up: Response: No adverse reaction pf1 Medication: 03:30 VIS not applicable for this client. pf1 Intake: 04:00 IV: 1000ml; Total: 1000ml. pf1 04:07 IV: 10ml; Total: 1010ml. pf1 Outcome: 06:10 Discharge ordered by . hortencia 06:37 Discharged to home ambulatory, with family. pf1 06:37 Condition: improved 06:37 Discharge instructions given to patient, Instructed on discharge instructions, follow up and referral plans. medication usage, Demonstrated understanding of instructions, follow-up care, medications, Prescriptions given X 4. 06:40 Patient left the ED. pf1 Signatures: Dispatcher [employer] EDMS Shaheen Wright MD MD cha Baxter, Heather, RN RN Grazyna Harrison Sophia PAElliott PA-Jason [email or web address] Karin villagran, RN RN pf1
--- NOTE | 2022-05-30 06:11 | EDPHYS ---
Physician Documentation [facility] Name: Peace Garcia Age: 21 yrs Sex: Female : 2000 Arrival Date: 05/30/2022 Time: 00:04 Bed 23 Private MD: URIEL Physician Shaheen Wright HPI: 05/30 01:50 This 21 yrs old Female presents to ER via Ambulatory with complaints of Abdominal Pain, sb4 Diarrhea, Nausea. 01:50 Patient reports that she started experiencing right lower quadrant abdominal pain this sb4 evening. She reports the pain as dull. States she had 3 episodes of diarrhea and has also felt nauseated but has not vomited. LMP 2 weeks ago. Denies history of ovarian cysts. Recent uncomplicated vaginal child in March and also had had an IUD inserted a few days ago.. 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 - Social history:: Smoking status: Reported history of juuling and/or vaping. ROS: 01:50 Constitutional: Negative for fever, chills, and weight loss, Eyes: Negative for injury, sb4 pain, redness, and discharge, ENT: Negative for injury, pain, and discharge, Cardiovascular: Negative for chest pain, palpitations, and edema, Respiratory: Negative for shortness of breath, cough, wheezing, and pleuritic chest pain, : Negative for injury, bleeding, discharge, and swelling, MS/Extremity: Negative for injury and deformity, Skin: Negative for injury, rash, and discoloration. 01:50 Abdomen/GI: Positive for abdominal pain, nausea, diarrhea. Exam: 01:50 Constitutional: This is a well developed, well nourished patient who is awake, alert, sb4 and in no acute distress. Head/Face: Normocephalic, atraumatic. Eyes: Pupils equal round and reactive to light, extra-ocular motions intact. Periorbital areas with no swelling, redness, or edema. ENT: Mucous membranes moist. Cardiovascular: Regular rate and rhythm with a normal S1 and S2. Respiratory: Lungs have equal breath sounds bilaterally, clear to auscultation and percussion. No rales, rhonchi or wheezes noted. No increased work of breathing, no retractions or nasal flaring. Skin: Warm, dry with normal turgor. Normal color with no rashes, no lesions, and no evidence of cellulitis. MS/ Extremity: Pulses equal, no cyanosis. Neurovascular intact. Full, normal range of motion. 01:50 Abdomen/GI: Exam negative for abnormal bowel sounds, distension, guarding, Inspection: Palpation: mild abdominal tenderness, in the suprapubic area and right lower quadrant. Vital Signs: 00:11 BP 123 / 77; Pulse 101; Resp 16; Temp 99; Pulse Ox 100% ; Weight 63.5 kg; Height 5 ft. hb 7 in. (170.18 cm); Pain 5/10; 03:00 BP 103 / 67; Pulse 81; Resp 18; Temp 98.9; Pulse Ox 99% ; Pain 1/10; pf1 04:00 BP 101 / 64; Pulse 82; Resp 18; Temp 99; Pulse Ox 100% ; Pain 1/10; pf1 05:00 BP 97 / 66; Pulse 82; Resp 18; Pulse Ox 100% ; Pain 0/10; pf1 06:19 BP 100 / 69; Pulse 87; Resp 18; Temp 99.1; Pulse Ox 100% ; Pain 0/10; pf1 00:11 Body Mass Index 21.93 (63.50 kg, 170.18 cm) hb MDM: 00:16 Patient medically screened. sb4 03:04 Data reviewed: vital signs, nurses notes, lab test result(s), radiologic studies, CT hortencia scan. 03:06 Transition of care: After a detail discussion of the patient's case, care is sb4 transferred to Shaheen Wright MD. 05/30 01:44 Order name: CBC with Diff; Complete Time: 04:00 sb4 05/30 01:44 Order name: CMP; Complete Time: 04:00 sb4 05/30 01:44 Order name: Lipase; Complete Time: 04:00 sb4 05/30 03:19 Order name: Urine Dipstick-Ancillary; Complete Time: 04:00 EDMS 05/30 04:04 Order name: Urine Culture hortencia 05/30 01:44 Order name: IV Saline Lock; Complete Time: 03:05 sb4 05/30 01:44 Order name: Labs collected and sent; Complete Time: 03:05 sb4 05/30 01:44 Order name: Urine Dipstick-Ancillary (obtain specimen); Complete Time: 03:24 sb4 05/30 03:04 Order name: CT Abd/Pelvis - IV Contrast Only [facility] 05/30 01:44 Order name: Urine Test (obtain specimen); Complete Time: 03:24 sb4 Administered Medications: 03:00 Drug: NS 0.9% 1000 ml Route: IV; Rate: 1 bolus; Site: right antecubital; pf1 04:00 Follow up: Response: No adverse reaction; IV Status: Completed infusion; IV Intake: pf1 1000ml 03:20 Drug: Zofran (Ondansetron) 4 mg Route: IVP; Site: right antecubital; pf1 04:00 Follow up: Response: No adverse reaction; Nausea is decreased pf1 04:05 Drug: Rocephin (cefTRIAXone) 1 grams Route: IV; Rate: per protocol; Site: right pf1 antecubital; 04:07 Follow up: IV Status: Completed infusion; IV Intake: 10ml pf1 04:05 Drug: Cipro (ciprofloxacin) 500 mg Route: PO; pf1 05:00 Follow up: Response: No adverse reaction pf1 Disposition: 03:03 Co-signature as Attending Physician, Shaheen Wright MD I agree with the assessment and hortencia plan of care. Disposition Summary: 05/30/22 06:10 Discharge Ordered Location: Home hortencia Problem: new hortencia Symptoms: have improved hortencia Condition: Stable hortencia Diagnosis - Abdominal pain, Generalized hortencia - Nausea hortencia - Diarrhea, unspecified hortencia - UTI/ Urinary tract infection, site not specified hortencia - Elevated white blood cell count, unspecified hortencia Followup: hortencia - With: Private Physician - When: 2 - 3 days - Reason: Recheck today's complaints, Continuance of care, Re-evaluation by your physician Discharge Instructions: - Discharge Summary Sheet hortencia - Abdominal Pain, Adult hortencia - Diarrhea, Adult hortencia - Nausea, Adult hortencia - Urinary Tract Infection, Adult hortencia - Urinary Tract Infection, Adult, Evur-vz-Bnjk hortencia - Abdominal Pain, Adult, Evsg-go-Sils hortencia - Diarrhea, Adult, Omeu-pd-Kcps hortencia Forms: - Medication Reconciliation Form hortencia - Thank You Letter hortencia - Antibiotic Education hortencia - Prescription Opioid Use [facility] Prescriptions: - Pepcid 20 mg Oral Tablet - take 1 tablet by ORAL route every 12 hours for 10 days; 20 tablet; Refills: 0, [facility] Product Selection Permitted - Zofran 4 mg Oral Tablet - take 1 tablet by ORAL route every 12 hours As needed; 20 tablet; Refills: 0, [facility] Product Selection Permitted - dicyclomine 20 mg Oral Tablet - take 1 tablet by ORAL route 4 times per day; 28 tablet; Refills: 0, Product [facility] Selection Permitted - Cipro 250 mg Oral Tablet - take 1 tablet by ORAL route every 12 hours; 14 tablet; Refills: 0, Product [facility] Selection Permitted Signatures: Dispatcher [employer] EDShaheen Joyce MD MD cha Baxter, Heather, RN RN Gloria White PA-C PA-C sb4 Karin villagran RN RN pf1
[2022-05-30 07:38] VITALS: O2SAT 100
[2022-05-30 07:41] VITALS: BP 100/69; TEMP 99.1
--- NOTE | 2022-05-30 14:37 | RAD REPORT ---
EXAM DESCRIPTION: CT abdomen and pelvis with IV contrast CLINICAL HISTORY: 21 years Female Abdominal pain, post-op TECHNIQUE: Axial CT imaging of the abdomen and pelvis was performed following the administration of intravenous contrast.. Oral contrast was not administered. Sagittal and coronal reconstructed image s were then performed. The CT study is performed according to ALARA (as low as reasonably achievabl e) or ALARA/IMAGE GENTLY, with automatic adjustment of mA and/or kV according to patient size. Performed on: 05/30/2022 at 4:32 AM. COMPARISON: None FINDINGS: Lung bases: The lung bases are clear. Liver: The liver measures approximately 18.4 cm in craniocaudal dimension. No focal hepatic abnormali ties are identified. Liver attenuation is within normal limits. The hepatic and portal veins are higuera nt. Spleen: The spleen measures approximately 13 cm infrarenal caudal dimension and is top normal in size . No focal splenic abnormalities are identified. There is heterogeneous enhancement of the spleen lik laura related to the phase of contrast enhancement. Gallbladder and bile duct: The gallbladder is moderately contracted on this examination There is no biliary ductal dilatation. Pancreas: The pancreas is grossly normal in size and configuration. Adrenal Glands: The adrenal glands are normal in size and configuration. Kidneys: The kidneys are normal in size and configuration. There is no evidence of hydronephrosis. Th ere is no evidence of nephrolithiasis. No definite solid or cystic renal mass lesions are identified. Stomach: The stomach is grossly normal. There is no definite hiatal hernia. Bowel: The bowel gas pattern is non specific and non obstructive. Appendix: The appendix is not definitely visualized on this examination. There is no CT evidence to s uggest acute appendicitis. Free air: There is no evidence of free air. Free fluid: There is no evidence of free fluid. Vasculature: The aorta is normal in caliber and contour. The inferior vena cava is grossly unremarkab le. Lymphadenopathy: No pathologic lymphadenopathy is identified. Bladder: The bladder is well distended and smooth in contour. Reproductive: The uterus is retroflexed. An intrauterine device is present within the endometrial can al. The adnexal regions are grossly within normal limits. Bones: No acute osseous abnormalities are identified. There is a small bone island within the inferio r right sacral alar Soft tissues: No acute soft tissue abnormalities are identified. IMPRESSION: 1. No evidence of acute intra-abdominal or intrapelvic pathology. 2. Borderline hepatosplenomegaly. 3. Intrauterine device present within the endometrial canal. Retroflexed uterus. Electronically signed by: Corine Feldman DO 05/30/2022 5:45 AM SENIOR SALES ENGINEER Due to temporary technical issues with the PACS/Fluency reporting system, reports are being signed by the in house radiologists without review as a courtesy to insure prompt reporting. The interpreting radiologist is fully responsible for the content of the report.
== END 2022-05-30 06:40 | disposition home or self-care (01) ==
LOC: ER 00:01
DX: R10.84 Generalized abdominal pain (principal); N39.0 Urinary tract infection, site not specified; K21.9 Gastro-esophageal reflux disease without esophagitis; J45.909 Unspecified asthma, uncomplicated; F17.290 Nicotine dependence, other tobacco product, uncomplicated; R11.0 Nausea; R19.7 Diarrhea, unspecified; D72.829 Elevated white blood cell count, unspecified
CPT/HCPCS: 96361; 87088; 85025; 87086; 36415; 81003; 83690; 80053; 74177; 96375; 96374; 99284; Q9967; J7030; J2405